=== PATIENT | female | born 1945 | race African-American/Black ===

== ENCOUNTER 2017-05-13 14:56 | Outpatient (CLI) | payer MEDICARE, BC ==
[2017-05-13 18:54] LABS: ALT (SGPT) 18 U/L (8-55); AST (SGOT) 22 U/L (5-34); Albumin 3.5 g/dL (3.4-4.8); Alkaline Phosphatase 69 U/L (40-150); Anion Gap 20 mmol/L (10-20); BUN (Urea Nitrogen) 39 mg/dL (9.8-20.1); Bilirubin, Total 0.6 mg/dL (0.2-1.2); Calc. Creatinine Clearance 0 mL/min (70-130); Calcium 9.5 mg/dL (7.8-10.44); Carbon Dioxide 29 mmol/L (23-31); Chloride 98 mmol/L (98-107); Cholesterol 151 mg/dl (< 200 Desired); Estimated GFR-MDRD 27; Globulin 4.2 g/dL (2.4-3.5); Glucose 199 mg/dL (80-115); HDL Cholesterol 30 mg/dL (>60 Neg Risk); LDL Cholesterol, Calculated 86 mg/dL; Potassium 3.7 mmol/L (3.5-5.1); Protein, Total 7.7 g/dL (6.0-8.3); Sodium 143 mmol/L (136-145); Triglycerides 175 mg/dL (Less than 150)
[2017-05-13 20:02] LABS: #Basophils 0.1 thou/uL (0.0-0.2); #Eosinphils 0.1 thou/uL (0.0-0.7); #Lymphocytes 1.4 thou/uL (1.20-3.40); #Monocytes 0.4 thou/uL (0.11-0.59); #Neutrophils 4.4 thou/uL (1.40-6.50); %Eosinophils 1.7 % (0.0-10.0); %Lymphocytes 22.1 % (21.0-51.0); %Monocytes 6.4 % (0.0-10.0); %Neutrophils 68.8 % (42.0-75.0); Hemoglobin 10.2 g/dL (12.0-16.0); Mean Corpuscular HGB CONC 30.7 g/dL (32.0-36.0); Mean Corpuscular Hemoglobin 28.6 pg (27.0-31.0); Mean Corpuscular Volume 93.3 fl (81.0-99.0); Mean Platelet Volume 5.5 fL (7.4-10.4); Platelet Count 314 thou/uL (130-400); Red Blood Cell (RBC) Count 3.55 mill/uL (4.20-5.40); White Blood Cell (WBC) Count 6.3 thou/uL (4.8-10.8)
== END 2017-05-13 14:57 | disposition home or self-care (01) ==
LOC: NAVSJIPCSP 14:56 → NAV LAB 14:57
PROVIDERS: ATTEND Internal Medicine
DX: I12.9 Hypertensive chronic kidney disease with stage 1 through stage 4 chronic kidney disease, or unspecified chronic kidney disease (principal); N18.3 Chronic kidney disease, stage 3 (moderate); E78.5 Hyperlipidemia, unspecified; Z79.899 Other long term (current) drug therapy
CPT/HCPCS: 80053; 80061; 85025

== ENCOUNTER 2017-05-29 17:46 | Inpatient (IN) | payer MEDICARE, BC ==
[2017-05-29] MEDS ORDERED: Famotidine 20 MG TAB PO PRN (19:40)
[2017-05-29] MEDS ORDERED: Ondansetron ODT 4 MG TAB PO PRN (19:42)
[2017-05-29] MEDS ORDERED: Milk Of Magnesia 30 ML UDCUP PO PRN (19:42)
[2017-05-29] MEDS ORDERED: Loperamide HCl 2 MG CAP PO PRN (19:42)
[2017-05-29] MEDS ORDERED: Calcium Carbonate 500 MG ChewTAB PO PRN (19:42)
[2017-05-29] MEDS ORDERED: cefTRIAXone\\ROCEPHIN 2 GM VIAL IVPB SCH (19:45)
[2017-05-29] MEDS: Labetalol HCl 100 MG TAB PO SCH (21:36)
[2017-05-29] MEDS: Docusate 100 MG CAP PO SCH (21:36)
[2017-05-29] MEDS: cloNIDine 0.2 MG TAB PO SCH (21:37)
[2017-05-29] MEDS: Gabapentin 100 MG CAP PO SCH (21:37)
[2017-05-29] MEDS: hydrALAZINE 25 MG TAB PO SCH (21:38)
[2017-05-29] MEDS: Furosemide 40 MG TAB PO SCH (21:38)
[2017-05-30] MEDS: Acetaminophen 325 MG TAB PO PRN ×2 (00:17→09:03)
[2017-05-30] MEDS: Diazepam 5 MG TAB PO SCH ×5 (00:18→23:35)
--- NOTE | 2017-05-30 00:42 | HP ---
DATE OF ADMISSION: 05/29/2017 HISTORY OF PRESENT ILLNESS: Ms. Zuñiga is a 71-year-old black female that developed worsening hung k pain over the past 3-4 weeks. The patient had an MRI, which showed lumbosacral area consistent wi th infection. She was taken to the surgical suite by Dr. Woodson, and had that area debrided, but no obvious purulence was noted. She also had a laminectomy in decompressive surgery. She eventual ly was started on some IV antibiotics and felt that she needed 6 weeks of IV antibiotics per Dr. Harish rojas' recommendation. She eventually was stabilized and transferred to [facility] in [place], [place] for continued physical therapy, occupational therapy and IV antibiotics. She was tr ansferred here today. PAST MEDICAL HISTORY: Reveals the patient has the followin. Hypertension. 2. Osteoarthritis. 3. Rotator cuff disease. 4. Prior history of cervical cancer in remission after chemotherapy and radiation. 5. Obesity. PAST SURGICAL HISTORY: 1. Bilateral hip replacements. 2. Removal of uterine fibroids. 3. Tonsillectomy. 4. Bilateral cataracts. 5. Laminectomy decompressive surgery by Dr. Woodson. SOCIAL HISTORY: Reveals the patient smoked for approximately unknown time. The patient is , she has one daughter. The patient does not drink, does not use any alcohol or recreational drugs. 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 ALLERGIES: Reveals the patient is allergic to MORPHINE and PENICILLIN, gives rashes. PRESENT MEDICATIONS: Reveal the patient is presently on the followin. [place] 10 p.r.n. pain. 2. Tums p.r.n. heartburn and indigestion. 3. Ceftriaxone 2 grams q.24 hours. 4. Vancomycin 750 mg q.24 hours. 5. Clonidine 0.2 mg at bedtime. 6. Valium 5 mg q.6 hours p.r.n. 7. Colace 100 mg b.i.d. 8. Pepcid 20 mg p.r.n. 9. Lasix 40 mg at bedtime. 10. Neurontin 300 mg t.i.d. 11. Apresoline 50 mg t.i.d. 12. Theragran-M daily. 13. Labetalol 300 mg b.i.d. 14. Imodium p.r.n. 15. Milk of Magnesia p.r.n. 16. Zofran p.r.n. 17. Vitamin D, folic acid, B12 one each day. FAMILY HISTORY: Unremarkable and noncontributory. REVIEW OF SYSTEMS: Reveal the patient denies any present fever or chills. She does complain of hung k pain. She denies any ear, nose or throat problems. She denies any chest pain or palpitations, sk ipping, rapid or slow heartbeat. She denies any cough, cold, congestion or respiratory problems at this time. Denies any nausea, vomiting, diarrhea or constipation. She denies any problems and s tated she has significant back pain, which is better and pain in her right leg is mainly coming from her back. PHYSICAL EXAMINATION: GENERAL: This is a well-developed, somewhat obese black female, in no apparent distress at this suzie e. HEENT: Reveals normocephalic, nontraumatic cranium. Pupils are equally round and reactive. Extrao cular movements are intact. Nose and throat are dry. The patient has multiple dental caries. NECK: Supple, without masses, nodes or bruits. No jugular venous distention is noted. LUNGS: Chest is clear to auscultation. No rales, rhonchi, wheezes or cough is noted. HEART: Reveals a regular rate and rhythm without murmurs, gallops or rubs. ABDOMEN: Obese, soft, nontender, without organomegaly. Normal bowel sounds are noted. No rebound or guarding is noted. Bowel sounds are heard in all 4 quadrants. : Deferred. EXTREMITIES: Reveal no clubbing, cyanosis or edema. NEUROLOGIC: The patient does have decreased movement in both her shoulders, which the patient state s that has been going on for long time. The patient's lumbar surgical spine sites are covered. The patient has trace edema. ASSESSMENT: 1. Osteomyelitis. The patient needs 6 weeks of ceftriaxone and vancomycin. 2. Hypertension. 3. Osteoarthritis. 4. Possible psoas muscle abscess. 5. Diskitis. PLAN: 1. Continue IV antibiotics for a total of 6 weeks, will follow up with weekly labs to Dr. Raines. 2. Continue to follow the patient's blood pressure closely. 3. Pain management. 4. Physical therapy and occupational therapy. 5. Deep venous thrombosis prophylaxis. 6. Stress ulcer prophylaxis. 7. Decubitus precautions.
[2017-05-30 05:48] LABS: ALT (SGPT) 23 U/L (8-55); AST (SGOT) 32 U/L (5-34); Albumin 2.3 g/dL (3.4-4.8); Alkaline Phosphatase 94 U/L (40-150); Anion Gap 13 mmol/L (10-20); BUN (Urea Nitrogen) 17 mg/dL (9.8-20.1); Bilirubin, Total 0.4 mg/dL (0.2-1.2); Calc. Creatinine Clearance 73 mL/min (70-130); Calcium 8.8 mg/dL (7.8-10.44); Carbon Dioxide 28 mmol/L (23-31); Chloride 102 mmol/L (98-107); Estimated GFR-MDRD 54; Globulin 3.9 g/dL (2.4-3.5); Glucose 104 mg/dL (80-115); Potassium 3.6 mmol/L (3.5-5.1); Protein, Total 6.2 g/dL (6.0-8.3); Sodium 139 mmol/L (136-145)
[2017-05-30 06:22] LABS: Anisocytosis SLIGHT = 6-15 cells (100X) (0-5/hpf); Band 23 % (5-11); Eosinophils 5 % (0-10); Hemoglobin 6.6 g/dL (12.0-16.0); Hypochromia MARKED = >30 cells (100X) (0-5/hpf); Lymphocytes 22 % (21-51); MDiff Complete? YES; Mean Corpuscular HGB CONC 31.2 g/dL (32.0-36.0); Mean Corpuscular Hemoglobin 28.1 pg (27.0-31.0); Mean Corpuscular Volume 90.1 fl (81.0-99.0); Mean Platelet Volume 4.9 fL (7.4-10.4); Metamyelocyte 1 % (0-0); Monocytes 1 % (0-10); Neutrophil 48 % (42-75); PLT Morphology Comment Appears Adequate; Platelet Count 439 thou/uL (130-400); Polychromasia SLIGHT = 2-3 cells (100X) (0-2/hpf); RBC Distribution Width 14.9 % (11.5-14.5); Red Blood Cell (RBC) Count 2.35 mill/uL (4.20-5.40); White Blood Cell (WBC) Count 10.6 thou/uL (4.8-10.8)
[2017-05-30] MEDS ORDERED: Sodium Chloride 0.9% 20 ML ONE ×2 (07:15→14:57)
[2017-05-30] MEDS: Vancomycin HCl 750 MG in Sodium Chloride 0.9% 250 ML 250 ML IVPB SCH ×3 (08:00→11:54)
[2017-05-30] MEDS: hydrALAZINE 25 MG TAB PO SCH ×3 (08:44→20:23)
[2017-05-30] MEDS: Multivitamin W/ Minerals 1 TAB PO SCH (08:44)
[2017-05-30] MEDS: Labetalol HCl 100 MG TAB PO SCH ×2 (08:45→20:23)
[2017-05-30] MEDS: Docusate 100 MG CAP PO SCH ×2 (08:45→20:24)
[2017-05-30] MEDS ORDERED: B2 PO SCH (09:00)
[2017-05-30] MEDS ORDERED: FLU VACC QS2017-18 36 mo. & older 0.5 ML SYRINGE IM ONE (09:00)
[2017-05-30] MEDS ORDERED: VIT D3 PO SCH (09:00)
[2017-05-30] MEDS ORDERED: FOLIC ACID PO SCH (09:00)
[2017-05-30] MEDS ORDERED: [Biotin] 10,000 MCG PO SCH (09:00)
[2017-05-30] MEDS ORDERED: B6 PO SCH (09:00)
[2017-05-30] MEDS ORDERED: B12 PO SCH (09:00)
[2017-05-30] MEDS: Gabapentin 100 MG CAP PO SCH ×3 (09:03→20:23)
[2017-05-30] MEDS: cefTRIAXone\\ROCEPHIN 2 GM in Sodium Chloride 0.9% 100 ML IVPB SCH (15:35)
--- NOTE | 2017-05-30 20:12 | PRG ---
DATE OF SERVICE: 05/30/2017 SUBJECTIVE: Ms. Zuñiga is a very pleasant 71-year-old black female who has had significant debili ty here recently. She developed back pain approximately 3-4 weeks ago and an MRI showed lumbosacral area consistent with diskitis infection. She was taken to the surgical suite by Dr. Woodson and had that area debrided. She also had a byrd inectomy along with decompressive surgery. She was eventually started on IV antibiotics and Dr. Harish rojas was asked to see the patient in consultation. She was eventually stabilized and transferred to [facility] on IV ceftriaxone 2 grams q.24 hours and vancomycin 750 mg IV q.24 hours. The patient states she is feeling little bit better today. She did not get out of bed, but she did do better exercise with physical therapy and occupational therapy. She states her pain is about the same, but maybe slightly better. She still has a very poor appetite and I told her she had to eat to get well. OBJECTIVE: VITAL SIGNS: Revealed blood pressure is 134/61, pulse 85-89, respirations 20, O2 saturation 97% on room air and T-max is 98.7. GENERAL: This is a well-developed, well-nourished, obese black female in no apparent distress at th is time. She states her pain medicine is working fairly well. HEENT: Reveals normocephalic and nontraumatic cranium. Pupils are equally round and reactive. Nos e and throat are somewhat dry. NECK: Supple, without masses, nodes or bruits. LUNGS: Chest is clear to auscultation. No rales, rhonchi or wheezes are heard. No cough is noted. HEART: Reveals a regular rate and rhythm without murmurs, gallops or rubs. ABDOMEN: Obese, soft and nontender, without organomegaly. Normal bowel sounds are noted. No rebou nd or guarding is noted. GENITOURINARY: Deferred. EXTREMITIES: Reveal no clubbing, cyanosis or edema. The patient does have decreased movement in onelia th her shoulders, which has been a long-term problem. Patient's lumbar spinal surgery sites are sti ll covered. Patient has trace edema. ASSESSMENT: 1. Osteomyelitis. Patient needs 6 weeks of ceftriaxone 2 grams q.24 hours and vancomycin 750 mg q. 24 hours. 2. Hypertension, which is stable. 3. Osteoarthritis, stable. 4. Diskitis. 5. Generalized weakness. 6. Pain. PLAN: 1. Continue IV antibiotics for a total of six weeks. 2. Weekly labs to be sent to Dr. Raines. 3. Continue to monitor the patient's blood pressure closely. 4. Continue pain management. 5. Physical therapy and occupational therapy. 6. Deep venous thrombosis prophylaxis. 7. Stress ulcer prophylaxis. 8. Decubitus precautions.
[2017-05-30] MEDS: Furosemide 40 MG TAB PO SCH (20:24)
[2017-05-30] MEDS: cloNIDine 0.2 MG TAB PO SCH (20:24)
[2017-05-31 05:42] LABS: #Basophils 0.1 thou/uL (0.0-0.2); #Eosinphils 0.3 thou/uL (0.0-0.7); #Lymphocytes 1.7 thou/uL (1.20-3.40); #Monocytes 0.6 thou/uL (0.11-0.59); #Neutrophils 6.3 thou/uL (1.40-6.50); %Basophils 1.5 % (0.0-1.0); %Lymphocytes 18.3 % (21.0-51.0); %Monocytes 6.6 % (0.0-10.0); %Neutrophils 70.6 % (42.0-75.0); Mean Corpuscular HGB CONC 30.6 g/dL (32.0-36.0); Mean Corpuscular Hemoglobin 28.1 pg (27.0-31.0); Mean Corpuscular Volume 91.8 fl (81.0-99.0); Mean Platelet Volume 4.9 fL (7.4-10.4); Platelet Count 431 thou/uL (130-400); RBC Distribution Width 15.2 % (11.5-14.5); Red Blood Cell (RBC) Count 2.14 mill/uL (4.20-5.40)
[2017-05-31] MEDS ORDERED: Sodium Chloride 0.9% 10 ML ONE ×2 (06:15→14:58)
[2017-05-31] MEDS: Diazepam 5 MG TAB PO SCH ×3 (06:27→17:11)
[2017-05-31 07:42] LABS: Vancomycin, Trough 21.1 ug/mL
[2017-05-31] MEDS: Vancomycin HCl 750 MG in Sodium Chloride 0.9% 250 ML 250 ML IVPB SCH ×2 (08:00→10:00)
[2017-05-31] MEDS: Docusate 100 MG CAP PO SCH ×2 (09:01→21:26)
[2017-05-31] MEDS: Labetalol HCl 100 MG TAB PO SCH ×2 (09:01→21:25)
[2017-05-31] MEDS: Multivitamin W/ Minerals 1 TAB PO SCH (09:01)
[2017-05-31] MEDS: Gabapentin 300 MG CAP PO SCH ×3 (09:02→21:26)
[2017-05-31] MEDS: hydrALAZINE 25 MG TAB PO SCH ×3 (09:02→21:26)
--- NOTE | 2017-05-31 09:16 | PRG ---
DATE OF SERVICE: 05/31/2017 DATE OF ADMISSION: 05/29/2017 HISTORY OF PRESENT ILLNESS: Ms. Zuñiga is a 71-year-old black female that about a month ago devel oped severe back pain. MRI revealed lumbosacral area consistent with diskitis and osteomyelitis. T he patient was taken to the surgical suite by Dr. Woodson had that area debrided. She also had a laminectomy with decompressive surgery. She eventually was started on IV antibiotics and followed b aleta Raines. She was stabilized and transferred to [facility] on IV ceftriaxone 2 g kierra q.24 hours and vancomycin 750 mg IV q.24 hours. The patient had blood count yesterday, which is low with hemoglobin of 6.6, hematocrit of 21.2. She was redrawn this morning and her hemoglobin has dropped more 6.0 and 19.7. The patient has absolut nuria no complaints of any bleeding, nausea, vomiting blood or lower GI bleeds. We did type and cross her for 2 units. We will give her that today. We will also order a vancomycin level before her ne xt vancomycin dose. She has not had a trough done yet. SUBJECTIVE: The patient has no complaints today. She states she is doing well and she actually has not had any rectal bleeding, nausea, vomiting. She states her appetite is very good, but typically it is not good since she has been ill. PHYSICAL EXAMINATION: GENERAL: This is a well-developed, well-nourished, very pleasant black female in no apparent distre ss. HEENT: Reveals normocephalic and nontraumatic cranium. Pupils are equally round and reactive. Ext raocular movements intact. Nose and throat are slightly dry, but clear. NECK: Supple, without masses, nodes or bruits. LUNGS: Chest is clear to auscultation. No rales, rhonchi, wheezes or cough is heard. HEART: Reveals a regular rate and rhythm without murmurs, gallops or rubs. ABDOMEN: Obese, soft, nontender, without organomegaly. Normal bowel sounds are noted. No rebound or guarding is noted. : Deferred. EXTREMITIES: Reveal no clubbing, cyanosis or edema. The patient does have bilateral shoulder pain, which is a long-term problem. Patient has trace edema. IMPRESSION: 1. Osteomyelitis. Patient gets 6 weeks of ceftriaxone 2 grams q.24 hours and vancomycin 750 q.24 h ours. 2. Hypertension, stable. 3. Osteoarthritis in the shoulders. 4. Diskitis. 5. Generalized weakness. 6. Pain. 7. Anemia, unknown etiology. PLAN: 1. Type and cross for 2 units. 2. Give one unit, then give Lasix 20 IV and then give second unit. 3. Repeat CBC in the morning. 4. Vancomycin trough before next dose. 5. Continue to monitor the patient's blood pressure closely. 6. Pain management. 7. Deep venous thrombosis prophylaxis. 8. Stress ulcer prophylaxis. 9. Decubitus precautions. 10. Continue physical therapy and occupational therapy.
[2017-05-31] MEDS ORDERED: Furosemide 20 MG/2 ML VIAL SLOW IVP SCH (10:00)
[2017-05-31] MEDS: HYDROcodone/Acetaminophen 10/325 mg Tablet PO PRN (10:08)
[2017-05-31] MEDS: Furosemide 40 MG TAB PO SCH (14:01)
[2017-05-31] MEDS: cefTRIAXone\\ROCEPHIN 2 GM in Sodium Chloride 0.9% 100 ML IVPB SCH (16:59)
[2017-05-31] MEDS: Acetaminophen 325 MG TAB PO PRN (17:11)
[2017-05-31] MEDS: cloNIDine 0.2 MG TAB PO SCH (21:26)
[2017-06-01] MEDS: Diazepam 5 MG TAB PO SCH ×4 (04:09→17:43)
[2017-06-01 07:15] LABS: Vancomycin, Trough 24.7 ug/mL
[2017-06-01 07:16] LABS: #Basophils 0.1 thou/uL (0.0-0.2); #Eosinphils 0.3 thou/uL (0.0-0.7); #Lymphocytes 1.4 thou/uL (1.20-3.40); #Monocytes 0.6 thou/uL (0.11-0.59); #Neutrophils 7.3 thou/uL (1.40-6.50); %Basophils 1.3 % (0.0-1.0); %Eosinophils 3.3 % (0.0-10.0); %Lymphocytes 14.5 % (21.0-51.0); %Monocytes 6.1 % (0.0-10.0); %Neutrophils 74.8 % (42.0-75.0); Hemoglobin 8.1 g/dL (12.0-16.0); Mean Corpuscular HGB CONC 31.1 g/dL (32.0-36.0); Mean Corpuscular Volume 90.1 fl (81.0-99.0); Mean Platelet Volume 4.9 fL (7.4-10.4); Platelet Count 390 thou/uL (130-400); RBC Distribution Width 15.6 % (11.5-14.5); Red Blood Cell (RBC) Count 2.89 mill/uL (4.20-5.40); White Blood Cell (WBC) Count 9.8 thou/uL (4.8-10.8)
[2017-06-01] MEDS: Vancomycin HCl 750 MG in Sodium Chloride 0.9% 250 ML 250 ML IVPB SCH ×2 (08:39)
[2017-06-01] MEDS: Gabapentin 300 MG CAP PO SCH ×3 (09:26→21:24)
[2017-06-01] MEDS: Docusate 100 MG CAP PO SCH ×2 (09:26→21:24)
[2017-06-01] MEDS: Multivitamin W/ Minerals 1 TAB PO SCH (09:26)
[2017-06-01] MEDS: Labetalol HCl 100 MG TAB PO SCH ×2 (09:32→21:23)
[2017-06-01] MEDS: hydrALAZINE 25 MG TAB PO SCH ×3 (09:33→21:24)
[2017-06-01] MEDS: Furosemide 40 MG TAB PO SCH (14:10)
--- NOTE | 2017-06-01 14:46 | PRG ---
DATE OF SERVICE: 06/01/2017 SUBJECTIVE: The patient feels well with no weakness, stable back pain. No paresthesias in her leg. Resting well with no shortness of breath, chest pain, fever or chills. OBJECTIVE: VITAL SIGNS: Shows blood pressure 172/75, pulse 92, temperature 98.5. LABORATORY DATA: Show a vancomycin trough level 24.7, therapeutic for [employer] SAND[employer] infections and osteomyeli tis. Hemoglobin is up to 8.1 after transfusion of 2 units of packed cells yesterday, hematocrit 26, white count 9800. ASSESSMENT: 1. Recurrent anemia improved with transfusion, still of unknown etiology and we will repeat CBC in the a.m. and to evaluate further in the future. 2. Osteomyelitis of lumbar spine and diskitis improving on vancomycin with decreased, but persisten t pain. 3. Hypertension, controlled to goal. PLAN: Repeat CBC in the a.m. Continue vancomycin 750 q.24 hours and Rocephin 2 gram q.24 hours as levels to go. I discussed with the patient the history of anemia and possible previous evaluation.
[2017-06-01] MEDS: cefTRIAXone\\ROCEPHIN 2 GM in Sodium Chloride 0.9% 100 ML IVPB SCH (16:40)
[2017-06-01] MEDS: cloNIDine 0.2 MG TAB PO SCH (21:23)
[2017-06-02] MEDS: Diazepam 5 MG TAB PO SCH ×2 (01:00→06:25)
[2017-06-02 05:55] LABS: #Basophils 0.1 thou/uL (0.0-0.2); #Eosinphils 0.3 thou/uL (0.0-0.7); #Lymphocytes 1.9 thou/uL (1.20-3.40); #Monocytes 0.6 thou/uL (0.11-0.59); #Neutrophils 6.8 thou/uL (1.40-6.50); %Basophils 1.4 % (0.0-1.0); %Lymphocytes 19.9 % (21.0-51.0); %Monocytes 6.5 % (0.0-10.0); %Neutrophils 69.2 % (42.0-75.0); Hemoglobin 8.1 g/dL (12.0-16.0); Mean Corpuscular HGB CONC 30.4 g/dL (32.0-36.0); Mean Corpuscular Hemoglobin 27.7 pg (27.0-31.0); Mean Corpuscular Volume 91.1 fl (81.0-99.0); Mean Platelet Volume 5.2 fL (7.4-10.4); Platelet Count 385 thou/uL (130-400); RBC Distribution Width 15.2 % (11.5-14.5); Red Blood Cell (RBC) Count 2.91 mill/uL (4.20-5.40); White Blood Cell (WBC) Count 9.8 thou/uL (4.8-10.8)
[2017-06-02 06:08] LABS: ALT (SGPT) 18 U/L (8-55); AST (SGOT) 17 U/L (5-34); Albumin 2.3 g/dL (3.4-4.8); Alkaline Phosphatase 82 U/L (40-150); Anion Gap 13 mmol/L (10-20); BUN (Urea Nitrogen) 16 mg/dL (9.8-20.1); Bilirubin, Total 0.3 mg/dL (0.2-1.2); Calc. Creatinine Clearance 71 mL/min (70-130); Calcium 8.7 mg/dL (7.8-10.44); Carbon Dioxide 27 mmol/L (23-31); Chloride 103 mmol/L (98-107); Estimated GFR-MDRD 53; Globulin 3.8 g/dL (2.4-3.5); Glucose 131 mg/dL (80-115); Potassium 3.8 mmol/L (3.5-5.1); Protein, Total 6.1 g/dL (6.0-8.3); Sodium 139 mmol/L (136-145)
[2017-06-02] MEDS: Vancomycin HCl 1 GM in Sodium Chloride 0.9% 250 ML 250 ML IVPB SCH (08:50)
[2017-06-02] MEDS: Labetalol HCl 100 MG TAB PO SCH ×2 (09:30→21:46)
[2017-06-02] MEDS: hydrALAZINE 25 MG TAB PO SCH ×3 (09:30→21:47)
[2017-06-02] MEDS: Multivitamin W/ Minerals 1 TAB PO SCH (09:30)
[2017-06-02] MEDS: Docusate 100 MG CAP PO SCH ×2 (09:30→21:47)
[2017-06-02] MEDS: Gabapentin 300 MG CAP PO SCH ×3 (09:30→21:45)
[2017-06-02] MEDS: Furosemide 40 MG TAB PO SCH (14:05)
[2017-06-02] MEDS: HYDROcodone/Acetaminophen 10/325 mg Tablet PO PRN (15:24)
[2017-06-02] MEDS: cefTRIAXone\\ROCEPHIN 2 GM in Sodium Chloride 0.9% 100 ML IVPB SCH (15:34)
--- NOTE | 2017-06-02 15:56 | PRG ---
MEDICAL PROGRESS NOTE DATE OF SERVICE: 06/02/2017 SUBJECTIVE: The patient lying in the bed, somewhat sleepy, states she has been given Valium routine ly for back spasms. At this time, only complains of pain in her right forearm since the surgery and she states she awakened with pain in her arm. OBJECTIVE: VITAL SIGNS: Blood pressure is up to 179/77, pulse is 80, O2 sats 92% on room air, respirations 22 and afebrile. LUNGS: Clear. CARDIAC: Showed regular rhythm. ABDOMEN: Soft and nontender. BACK: Shows tenderness to palpation. EXTREMITIES: Shows her right wrist is significantly tender, but not swollen, hot or red. LABORATORY DATA: Vancomycin trough yesterday returned at 24.7 on 1.5 grams IV daily and was decreas ed to 1 gram IV daily. Sodium is 139, potassium 3.8, chloride 103, bicarbonate 27, BUN 16, creatini ne 1.22, glucose 131, calcium 8.7, total bilirubin 0.3, AST 17, ALT 18 and alkaline phosphatase 82. White count stable at 9800, hemoglobin stable at 8.1 and hematocrit 26. Significant hypochromia on smear. ASSESSMENT: 1. Persistent osteomyelitis of lumbar spine with diskitis on vancomycin 1 gram q.24 hours and Rocep hin 2 grams q.24 hours. Apparently, she was on 1.5, and this has been decreased to 1 gram today. C BC is normal. Sed rate is still significantly elevated. 2. Some lethargy secondary to Valium being given routinely around the clock for spasms and we will change it to p.r.n. 3. Hypertension, borderline elevation and we will monitor closely, may need to increase medication. 4. Recurrent anemia, stable after transfusion of 2 units with persistent macrocytic indices and hyp ochromia, but with negative stool guaiac and appears to be postop anemia. PLAN: Repeat CBC in the a.m. B12 and folate. Continue stool guaiac, decrease vancomycin to 1 gram q.24 hours and have pharmacy titrate dose.
[2017-06-02] MEDS: cloNIDine 0.2 MG TAB PO SCH (21:45)
[2017-06-02] MEDS: Diazepam 5 MG TAB PO PRN (23:38)
[2017-06-03] MEDS: Vancomycin HCl 1 GM in Sodium Chloride 0.9% 250 ML 250 ML IVPB SCH (08:32)
[2017-06-03] MEDS: HYDROcodone/Acetaminophen 10/325 mg Tablet PO PRN ×2 (08:50→21:13)
[2017-06-03] MEDS: Labetalol HCl 100 MG TAB PO SCH ×2 (08:50→21:14)
[2017-06-03] MEDS: Gabapentin 300 MG CAP PO SCH ×3 (08:51→21:15)
[2017-06-03] MEDS: Multivitamin W/ Minerals 1 TAB PO SCH (08:51)
[2017-06-03] MEDS: Docusate 100 MG CAP PO SCH ×2 (08:52→21:15)
[2017-06-03] MEDS: hydrALAZINE 25 MG TAB PO SCH ×3 (08:52→21:15)
--- NOTE | 2017-06-03 11:06 | PRG ---
DATE OF SERVICE: 06/03/2017 HISTORY OF PRESENT ILLNESS: Ms. Zuñiga is a very pleasant 71-year-old black female with severe ba ck pain. MRI revealed osteomyelitis of the lumbosacral area and diskitis. The patient was taken pierre rgically by Dr. Woodson and that area was debrided. She also had laminectomy decompressive surger y. She was started on IV antibiotics and was followed by Dr. Raines. She was transferred here on ce ftriaxone and vancomycin. SUBJECTIVE: The patient states she is doing very well today. She states she is feeling better. Sh neyda had a really good weekend. Her appetite is better. VITAL SIGNS: Blood pressure elevated this morning 177/76, pulse 82 to 89, respirations 20, O2 sat 9 5% on 3 liters, temperature max 98.6. LABORATORY: Laboratories yesterday revealed a white count of 9000, hemoglobin 8.1, hematocrit 26.5, platelet count of 385,000. Sodium 139, potassium 3.8, chloride 103, carbon dioxide 27 with a BUN 1 6, creatinine 1.22. Fasting sugar was 131. PHYSICAL EXAMINATION: GENERAL: This is a well-developed, well-nourished, very pleasant white female in no apparent distre ss at this time. HEENT: Reveals normocephalic, nontraumatic cranium. Pupils equal, round, and reactive. Extraocula r movements are intact. Nose and throat are slightly dry, but clear. NECK: Supple, without mass, nodes or bruits. LUNGS: Chest is clear to auscultation. No rales, rhonchi, wheezes or cough is heard. CARDIOVASCULAR: Reveals a regular rate and rhythm without murmurs, gallops or rubs. ABDOMEN: Obese, soft, nontender, without organomegaly. Normal bowel sounds are noted. No rebound or guarding is noted. GENITOURINARY: Deferred. EXTREMITIES: Reveal no clubbing, cyanosis or edema. The patient continues to have bilateral should er pain. This has been on long-term problem. The patient's spinal surgery is still covered. The p atient has only trace edema. IMPRESSION: 1. Osteomyelitis, needs a full 6 weeks of ceftriaxone and vancomycin. 2. Hypertension, stable. 3. Osteoarthritis, stable. 4. Diskitis stable. 5. Generalized weakness, stable. Pain control is much improved. PLAN: 1. Continue IV antibiotics for a total of 6 weeks. 2. Weekly labs sent to Dr. Raines. 3. Continue to monitor the patient's blood pressure closely. 4. Continue PT and OT. 5. Continue deep venous thrombosis prophylaxis. 6. Continue stress ulcer prophylaxis. 7. Decubitus precautions. 8. Continue physical therapy and occupational therapy.
[2017-06-03] MEDS: Furosemide 40 MG TAB PO SCH (14:30)
[2017-06-03] MEDS: cefTRIAXone\\ROCEPHIN 2 GM in Sodium Chloride 0.9% 100 ML IVPB SCH (15:44)
[2017-06-03 19:50] LABS: Vitamin B12 Greater than 2000 pg/mL (211-911)
[2017-06-03] MEDS: cloNIDine 0.2 MG TAB PO SCH (21:15)
[2017-06-04] MEDS ORDERED: methylPREDNISolone Acetate 40 mg/ml Vial ONE ×2 (06:23→06:24)
[2017-06-04] MEDS ORDERED: Lidocaine 1% 20 ML MDV ONE (06:25)
[2017-06-04 07:34] LABS: Vancomycin, Trough 19.8 ug/mL
[2017-06-04] MEDS: HYDROcodone/Acetaminophen 10/325 mg Tablet PO PRN ×3 (08:48→21:01)
[2017-06-04] MEDS: Labetalol HCl 100 MG TAB PO SCH ×2 (08:50→21:01)
[2017-06-04] MEDS: Multivitamin W/ Minerals 1 TAB PO SCH (08:51)
[2017-06-04] MEDS: hydrALAZINE 25 MG TAB PO SCH ×3 (08:52→21:03)
[2017-06-04] MEDS: Gabapentin 300 MG CAP PO SCH ×3 (08:52→21:01)
[2017-06-04] MEDS: Vancomycin HCl 1 GM in Sodium Chloride 0.9% 250 ML 250 ML IVPB SCH (08:52)
[2017-06-04] MEDS: Docusate 100 MG CAP PO SCH ×2 (08:54→21:02)
--- NOTE | 2017-06-04 13:04 | PRG ---
DATE OF SERVICE: 06/04/2017 HISTORY OF PRESENT ILLNESS: Ms. Zuñiga is a 71-year-old very pleasant black female with severe ba ck pain. She was found to have an osteomyelitis of the lumbosacral area and diskitis. She has take n the surgical suite by Dr. Woodson and had that area debrided. She was eventually transferred to [facility] for IV antibiotics. She has been followed by Dr. Raines. Presently on c eftriaxone and vancomycin. SUBJECTIVE: The patient has no complaints today. She states she stood up this morning and did some therapy. She is looking forward to getting a little more therapy. She has no complaints, states s he is eating well. She is a retired nurse. VITAL SIGNS: Blood pressure this morning was elevated at 175/79, pulse 79-94, respirations 16, O2 s at 95%, T-max 97.5. LABORATORY: Reveals vancomycin trough this morning was 19.8. PHYSICAL EXAMINATION: GENERAL: This is a well-developed, well-nourished, very pleasant black female in no apparent distre ss at this time. HEENT: Reveals normocephalic, nontraumatic cranium. Pupils are equally round and reactive. Extrao cular movements intact. Nose and throat are slightly dry. NECK: Supple, without masses, nodes or bruits. LUNGS: Chest clear to auscultation. No rales, rhonchi or wheezes are heard. No cough is noted. HEART: Reveals a regular rate and rhythm without murmurs, gallops or rubs. ABDOMEN: Obese, soft, nontender. No organomegaly is noted. Normal bowel sounds in 4 quadrants, is noted. No rebound or guarding is noted. : Deferred. EXTREMITIES: Reveal no clubbing, cyanosis or edema. The patient does have bilateral shoulder pain which is a long-term problem. The patient's spinal surgery still covered, no significant edema is n oted. IMPRESSION: 1. Diskitis with osteomyelitis for a full 10 weeks of ceftriaxone and vancomycin. 2. Hypertension, stable except it is high today. 3. Osteoarthritis. 4. Diskitis. 5. Generalized weakness. 6. Pain control. PLAN: 1. Continue IV antibiotics for a total of 6 weeks. 2. Weekly labs sent to Dr. Raines. 3. Continue to monitor blood pressure closely. 4. Continue PT and OT. 5. Continue deep venous thrombosis prophylaxis. 6. Continue stress ulcer prophylaxis. 7. Continue decubitus precautions.
[2017-06-04] MEDS: Furosemide 40 MG TAB PO SCH (14:00)
[2017-06-04] MEDS: cefTRIAXone\\ROCEPHIN 2 GM in Sodium Chloride 0.9% 100 ML IVPB SCH (15:35)
[2017-06-04] MEDS: cloNIDine 0.2 MG TAB PO SCH (21:03)
[2017-06-05 05:44] LABS: #Basophils 0.1 thou/uL (0.0-0.2); #Eosinphils 0.2 thou/uL (0.0-0.7); #Lymphocytes 1.6 thou/uL (1.20-3.40); #Monocytes 0.5 thou/uL (0.11-0.59); #Neutrophils 5.9 thou/uL (1.40-6.50); %Basophils 0.8 % (0.0-1.0); %Eosinophils 2.8 % (0.0-10.0); %Lymphocytes 19.6 % (21.0-51.0); %Monocytes 5.5 % (0.0-10.0); %Neutrophils 71.2 % (42.0-75.0); Hemoglobin 8.6 g/dL (12.0-16.0); Mean Corpuscular HGB CONC 32.4 g/dL (32.0-36.0); Mean Corpuscular Hemoglobin 31.2 pg (27.0-31.0); Mean Corpuscular Volume 96.3 fl (81.0-99.0); Mean Platelet Volume 5.2 fL (7.4-10.4); Platelet Count 366 thou/uL (130-400); RBC Distribution Width 15.3 % (11.5-14.5); Red Blood Cell (RBC) Count 2.74 mill/uL (4.20-5.40); White Blood Cell (WBC) Count 8.3 thou/uL (4.8-10.8)
[2017-06-05 05:56] LABS: ALT (SGPT) 16 U/L (8-55); AST (SGOT) 14 U/L (5-34); Albumin 2.4 g/dL (3.4-4.8); Alkaline Phosphatase 87 U/L (40-150); Anion Gap 13 mmol/L (10-20); BUN (Urea Nitrogen) 18 mg/dL (9.8-20.1); Bilirubin, Total 0.2 mg/dL (0.2-1.2); CRP (Inflammatory) 8.65 mg/dL (= or < 0.5); Calc. Creatinine Clearance 62 mL/min (70-130); Calcium 8.7 mg/dL (7.8-10.44); Carbon Dioxide 27 mmol/L (23-31); Chloride 102 mmol/L (98-107); Estimated GFR-MDRD 45; Globulin 3.7 g/dL (2.4-3.5); Glucose 136 mg/dL (80-115); Potassium 3.7 mmol/L (3.5-5.1); Protein, Total 6.1 g/dL (6.0-8.3); Sodium 138 mmol/L (136-145)
[2017-06-05] MEDS: Vancomycin HCl 1 GM in Sodium Chloride 0.9% 250 ML 250 ML IVPB SCH (08:33)
[2017-06-05] MEDS: Gabapentin 300 MG CAP PO SCH ×3 (08:34→20:31)
[2017-06-05] MEDS: Multivitamin W/ Minerals 1 TAB PO SCH (08:35)
[2017-06-05] MEDS: Labetalol HCl 100 MG TAB PO SCH ×2 (08:35→20:31)
[2017-06-05] MEDS: hydrALAZINE 25 MG TAB PO SCH ×3 (08:35→20:31)
[2017-06-05] MEDS: Docusate 100 MG CAP PO SCH ×2 (08:35→20:31)
[2017-06-05] MEDS: HYDROcodone/Acetaminophen 10/325 mg Tablet PO PRN ×3 (08:38→21:39)
--- NOTE | 2017-06-05 13:28 | PRG ---
DATE OF SERVICE: 06/05/2017 SUBJECTIVE: Ms. Zuñiga is doing well. Denies any complaints, resting comfortably, tolerating her medications. OBJECTIVE: VITAL SIGNS: She is afebrile, heart rate is 80, respirations are 22, blood pressure 188/80. CARDIOVASCULAR: S1, S2 plus. RESPIRATORY: Normal vesicular breath sounds. ABDOMEN: Soft, nontender, obese. Bowel sounds heard in all quadrants. EXTREMITIES: Without cyanosis or clubbing. LABORATORY VALUES: White count is 8.3, H\T\H is 8.6 and 26.4. Sed rate is 105. Sodium 138, potass ium 3.7, BUN and creatinine is 18 and 1.4. CRP is down to 8.65. IMPRESSION: 1. Diskitis requiring long-term IV antibiotics. 2. Blood pressure is still not well controlled. 3. Morbid obesity. 4. Degenerative joint disease. PLAN: 1. Increase hydralazine 100 mg t.i.d. 2. Continue current medications. 3. DVT and stress ulcer prophylaxis. 4. Decubitus precautions. 5. Weekly CBC, CRP, and sed rate. 6. Monitor creatinine for any worsening of renal function. Discussed with the patient in detail, all questions answered.
[2017-06-05] MEDS: Furosemide 40 MG TAB PO SCH (14:14)
[2017-06-05] MEDS: cefTRIAXone\\ROCEPHIN 2 GM in Sodium Chloride 0.9% 100 ML IVPB SCH (15:14)
[2017-06-05] MEDS: cloNIDine 0.2 MG TAB PO SCH (20:30)
[2017-06-06] MEDS: Labetalol HCl 100 MG TAB PO SCH ×2 (08:33→21:04)
[2017-06-06] MEDS: Vancomycin HCl 1 GM in Sodium Chloride 0.9% 250 ML 250 ML IVPB SCH (08:33)
[2017-06-06] MEDS: Multivitamin W/ Minerals 1 TAB PO SCH (08:33)
[2017-06-06] MEDS: HYDROcodone/Acetaminophen 10/325 mg Tablet PO PRN ×2 (08:34→21:01)
[2017-06-06] MEDS: hydrALAZINE 25 MG TAB PO SCH ×3 (08:34→21:03)
[2017-06-06] MEDS: Docusate 100 MG CAP PO SCH ×2 (08:34→21:04)
[2017-06-06] MEDS: Gabapentin 300 MG CAP PO SCH ×3 (08:35→21:03)
--- NOTE | 2017-06-06 13:11 | PRG ---
DATE OF SERVICE: 06/06/2017 SUBJECTIVE: Ms. Zuñiga is doing well. Denies any complaints, tolerating her antibiotics and her therapy. Her blood pressure continues to remain high. Her hydralazine was increased yesterday. plan is to increase her clonidine from 0.2 mg at night to 0.2 mg b.i.d. OBJECTIVE: VITAL SIGNS: She is afebrile, heart rate 93, respirations 20, oxygen saturation 98% and blood press ure 200/81 this morning. CARDIOVASCULAR: S1, S2 plus. RESPIRATORY SYSTEM: Normal vesicular breath sounds. ABDOMEN: Soft, obese, nontender, bowel sounds heard in all quadrants. EXTREMITIES: Without cyanosis or clubbing. Peripheral pulses are palpable. IMPRESSION: 1. Diskitis, requiring long-term intravenous antibiotics. 2. Hypertension, not controlled. 3. Obesity. 4. Chronic low back pain. 5. Peripheral neuropathy. PLAN: 1. Continue IV antibiotics. 2. Nutritional support. 3. Deep venous thrombosis prophylaxis. 4. Decubitus precautions. 5. Stress ulcer prophylaxis. 6. Increase clonidine to 0.2 mg b.i.d. 7. Continue to monitor blood pressure. 8. I discussed with the patient and family in detail and all questions answered.
[2017-06-06] MEDS: Furosemide 40 MG TAB PO SCH (14:04)
[2017-06-06] MEDS: cloNIDine 0.2 MG TAB PO SCH ×2 (15:03→21:04)
[2017-06-06] MEDS: cefTRIAXone\\ROCEPHIN 2 GM in Sodium Chloride 0.9% 100 ML IVPB SCH (15:09)
[2017-06-07] MEDS: Vancomycin HCl 1 GM in Sodium Chloride 0.9% 250 ML 250 ML IVPB SCH (09:01)
[2017-06-07] MEDS: HYDROcodone/Acetaminophen 10/325 mg Tablet PO PRN ×2 (09:07→21:36)
[2017-06-07] MEDS: cloNIDine 0.2 MG TAB PO SCH ×4 (09:09→21:39)
[2017-06-07] MEDS: hydrALAZINE 25 MG TAB PO SCH ×3 (09:09→21:37)
[2017-06-07] MEDS: Multivitamin W/ Minerals 1 TAB PO SCH (09:09)
[2017-06-07] MEDS: Labetalol HCl 100 MG TAB PO SCH ×2 (09:09→21:38)
--- NOTE | 2017-06-07 09:09 | PRG ---
DATE OF SERVICE: 06/07/2017 SUBJECTIVE: Ms. Zuñiga is doing well. Denies any complaints, resting comfortably. Blood pressur e is improving with the adjustment of her medications, it still not at goal. Ms. Zuñiga is doing well otherwise. Denies any concerns. Discussed with therapy and she apparently is having some sign ificant weakness in her right arm since her surgery. They recommended nursing get her up in a chair , even on the weekends. They stated that she walked about 20 feet yesterday and is definitely impro ving from the therapy standpoint as well. OBJECTIVE: VITAL SIGNS: She is afebrile, heart rate 83, respirations 20, oxygen saturation 97%, blood pressure 185/81. It was 158/69 last night. CARDIOVASCULAR: S1, S2 plus. RESPIRATORY: Normal vesicular breath sounds. ABDOMEN: Soft, obese, nontender, bowel sounds heard in all quadrants. EXTREMITIES: Without cyanosis or clubbing. Trace edema. CENTRAL NERVOUS SYSTEM: Grossly nonfocal except for right upper extremity weakness which I am not s ure if it is related to the shoulder or if it is a neurological issue. She states that this has bee n going on for a while and has not improved from the surgery. We will try to review her old records , she is relatively new to me. IMPRESSION: 1. Diskitis requiring IV antibiotics. 2. Hypertension, improving control, but still not at goal. 3. Chronic pain. 4. Degenerative joint disease. 5. Rotator cuff tendinitis. 6. Right upper extremity weakness, probably related to the shoulder. PLAN: 1. Continue current medications. 2. Nutritional support. 3. Continue IV antibiotics. 4. Deep venous thrombosis prophylaxis. 5. Decubitus precautions. 6. Stress ulcer prophylaxis. 7. Adjust blood pressure medications. 8. Discussed with patient in detail and all questions answered.
[2017-06-07] MEDS: Gabapentin 300 MG CAP PO SCH ×3 (09:10→21:37)
[2017-06-07] MEDS: Docusate 100 MG CAP PO SCH ×3 (09:10→21:36)
[2017-06-07] MEDS: Furosemide 40 MG TAB PO SCH (14:06)
[2017-06-07] MEDS: cefTRIAXone\\ROCEPHIN 2 GM in Sodium Chloride 0.9% 100 ML IVPB SCH (15:10)
[2017-06-07] MEDS: Diazepam 5 MG TAB PO PRN (21:43)
[2017-06-07] MEDS: Enoxaparin Sodium 40 MG/0.4 ML SYRINGE SC SCH ×2 (21:43→21:50)
[2017-06-08 05:28] LABS: Band 2 % (5-11); Hemoglobin 8.4 g/dL (12.0-16.0); Lymphocytes 17 % (21-51); MDiff Complete? YES; Mean Corpuscular HGB CONC 30.2 g/dL (32.0-36.0); Mean Corpuscular Hemoglobin 28.7 pg (27.0-31.0); Mean Corpuscular Volume 95.2 fl (81.0-99.0); Mean Platelet Volume 5.2 fL (7.4-10.4); Monocytes 5 % (0-10); Neutrophil 76 % (42-75); PLT Morphology Comment Appears Adequate; Platelet Count 368 thou/uL (130-400); RBC Morphology Normal; Red Blood Cell (RBC) Count 2.92 mill/uL (4.20-5.40); White Blood Cell (WBC) Count 7.2 thou/uL (4.8-10.8)
[2017-06-08 05:37] LABS: ALT (SGPT) 14 U/L (8-55); AST (SGOT) 13 U/L (5-34); Albumin 2.4 g/dL (3.4-4.8); Alkaline Phosphatase 85 U/L (40-150); Anion Gap 12 mmol/L (10-20); BUN (Urea Nitrogen) 19 mg/dL (9.8-20.1); Bilirubin, Total 0.2 mg/dL (0.2-1.2); Calc. Creatinine Clearance 71 mL/min (70-130); Calcium 8.8 mg/dL (7.8-10.44); Carbon Dioxide 31 mmol/L (23-31); Chloride 100 mmol/L (98-107); Estimated GFR-MDRD 52; Globulin 3.5 g/dL (2.4-3.5); Glucose 145 mg/dL (80-115); Potassium 3.6 mmol/L (3.5-5.1); Protein, Total 5.9 g/dL (6.0-8.3); Sodium 139 mmol/L (136-145)
[2017-06-08] MEDS: Vancomycin HCl 1 GM in Sodium Chloride 0.9% 250 ML 250 ML IVPB SCH (09:13)
[2017-06-08] MEDS: cloNIDine 0.2 MG TAB PO SCH ×3 (09:13→20:48)
[2017-06-08] MEDS: hydrALAZINE 25 MG TAB PO SCH ×3 (09:14→20:50)
[2017-06-08] MEDS: Labetalol HCl 100 MG TAB PO SCH ×2 (09:14→20:49)
[2017-06-08] MEDS: Gabapentin 300 MG CAP PO SCH ×3 (09:14→20:48)
[2017-06-08] MEDS: Docusate 100 MG CAP PO SCH ×2 (09:14→20:51)
[2017-06-08] MEDS: Multivitamin W/ Minerals 1 TAB PO SCH (09:15)
--- NOTE | 2017-06-08 12:36 | PRG ---
DATE OF SERVICE: 06/08/2017 HISTORY OF PRESENT ILLNESS: Ms. Zuñiga is a very pleasant 71-year-old black female with severe ba ck pain. She was found to have a lumbosacral discitis, thought to have possibly an abscess and was taken to the surgical suite by Dr. Woodson. That area was debrided and she was eventually transfe rred to [facility] for continued IV antibiotics and therapy. Dr. Raines was following the patient. SUBJECTIVE: The patient states she is doing well today. She is continuing to work hard with therap y and walked a 20+ feet. She states she is tired, but we are going to encourage her to get out of b ed and stay out of bed as much we can this weekend. VITAL SIGNS: Blood pressure is still slightly elevated 165/71, pulse 72-90, respirations 19-20, O2 saturation 98%. T-max 98.2. LABORATORY DATA: Reveals white count 7200, hemoglobin 8.4, hematocrit 27.8, and platelet count is 3 68,000. Sodium is 139, potassium 3.6, chloride 100, carbon dioxide 31 with a BUN of 19, creatinine 1.23 and a sugar 145. PHYSICAL EXAMINATION: GENERAL: This is a well-developed, well-nourished, slightly obese black female in no apparent distr ess at this time. HEENT: Reveals normocephalic, nontraumatic cranium. Pupils are equally round and reactive. Extrao cular movements intact. Nose and throat are slightly dry. NECK: Supple without masses, nodes or bruits. CHEST: Clear to auscultation, no rales, rhonchi or wheezes are heard. CARDIOVASCULAR: Reveals a regular rate and rhythm without murmurs, gallops or rubs. ABDOMEN: Soft, nontender without organomegaly. Slightly obese. Normal bowel sounds are noted in a ll 4 quadrants. GENITOURINARY: Deferred. EXTREMITIES: Reveal no clubbing, cyanosis and continues to have some trace edema. The patient also complains of bilateral shoulder pain, which is a long ongoing problem. IMPRESSION: 1. Diskitis. 2. Hypertension. 3. Degenerative joint disease. 4. Rotator cuff tendonitis. 5. Right upper extremity weakness. 6. Chronic pain. PLAN: 1. Continue IV antibiotics for a total of 6 weeks. 2. Weekly labs sent to Dr. Raines. 3. Continue to monitor the patient's blood pressure closely. 4. Continue physical therapy and occupational therapy. 5. Continue DVT prophylaxis. 6. Continued stress ulcer prophylaxis. 7. Continued decubitus precautions. 8. Continue pain control.
[2017-06-08] MEDS: Furosemide 40 MG TAB PO SCH (14:21)
[2017-06-08] MEDS: cefTRIAXone\\ROCEPHIN 2 GM in Sodium Chloride 0.9% 100 ML IVPB SCH (15:41)
[2017-06-08] MEDS: Diazepam 5 MG TAB PO PRN (20:48)
[2017-06-08] MEDS: Enoxaparin Sodium 40 MG/0.4 ML SYRINGE SC SCH (20:51)
[2017-06-09 07:19] LABS: Vancomycin, Trough 17.8 ug/mL
[2017-06-09] MEDS: Vancomycin HCl 1 GM in Sodium Chloride 0.9% 250 ML 250 ML IVPB SCH (08:22)
[2017-06-09] MEDS: cloNIDine 0.2 MG TAB PO SCH ×3 (08:23→20:56)
[2017-06-09] MEDS: Gabapentin 300 MG CAP PO SCH ×3 (08:24→20:55)
[2017-06-09] MEDS: hydrALAZINE 25 MG TAB PO SCH ×3 (08:24→20:54)
[2017-06-09] MEDS: Labetalol HCl 100 MG TAB PO SCH ×2 (08:24→20:55)
[2017-06-09] MEDS: Docusate 100 MG CAP PO SCH ×2 (08:24→20:57)
[2017-06-09] MEDS: Multivitamin W/ Minerals 1 TAB PO SCH (08:25)
--- NOTE | 2017-06-09 08:49 | PRG ---
DATE OF SERVICE: 06/09/2017 DATE OF ADMISSION: 05/29/2017 HISTORY OF PRESENT ILLNESS: Ms. Zuñiga is a very pleasant 71-year-old black female with severe ba ck pain. She was found to have lumbosacral diskitis and was taken to the surgical suite for debride ment by Dr. Woodson. She eventually was stabilized and transferred to [facility] for continued IV antibiotics and physical therapy. The patient is being followed by Dr. Raines and we are supposed to be sending him labs monthly. SUBJECTIVE: The patient states she is doing very well today. She had a good day yesterday but she has been mostly in bed. She did not get out much. She is encouraged today, Saturday and she has more time to rest, but she states she will get out of bed today. PHYSICAL EXAMINATION: VITAL SIGNS: Reveal blood pressure last night was 173/79, pending blood pressure this morning. Pul se 79-83, respirations 17, O2 saturation 99%, T-max 98. 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 HEENT: Reveals normocephalic and nontraumatic cranium. Pupils are equally round and reactive. Ext raocular movements intact. Nose and throat are still slightly dry. NECK: Supple, without masses, nodes or bruits. CHEST: Clear to auscultation. No rales, no rhonchi, no wheezes are heard. No cough is noted. HEART: Reveals a regular rate and rhythm. No murmurs, gallops or rubs are noted. ABDOMEN: Soft, obese, nontender, without organomegaly. Normal bowel sounds are noted in all 4 quad rants. No rebound or guarding is noted. : Exam is deferred. EXTREMITIES: Reveal no clubbing, cyanosis or edema. NEUROLOGIC: The patient has bilateral shoulder pain which is continuing to be an ongoing problem, o therwise stable. LABORATORY DATA: Vancomycin level this morning was 17.8. IMPRESSION: 1. Diskitis. 2. Hypertension. 3. Rotator cuff tendinitis. 4. Degenerative joint disease. 5. Right upper extremity weakness. 6. Chronic pain. 7. Generalized weakness. PLAN: 1. Continue IV antibiotics for a total of six weeks. 2. Dr. Raines. 3. Continue to monitor the patient's blood pressure closely. 4. Continue deep venous thrombosis prophylaxis. 5. Stress ulcer prophylaxis. 6. Decubitus precautions. 7. Pain management. 8. Physical therapy and occupational therapy.
[2017-06-09] MEDS: Furosemide 40 MG TAB PO SCH (14:17)
[2017-06-09] MEDS: cefTRIAXone\\ROCEPHIN 2 GM in Sodium Chloride 0.9% 100 ML IVPB SCH (15:59)
[2017-06-09] MEDS: HYDROcodone/Acetaminophen 10/325 mg Tablet PO PRN (20:56)
[2017-06-09] MEDS: Enoxaparin Sodium 40 MG/0.4 ML SYRINGE SC SCH (20:57)
[2017-06-10] MEDS: cloNIDine 0.2 MG TAB PO SCH ×3 (08:25→20:35)
[2017-06-10] MEDS: Labetalol HCl 100 MG TAB PO SCH ×2 (08:25→20:36)
[2017-06-10] MEDS: Gabapentin 300 MG CAP PO SCH ×3 (08:25→20:38)
[2017-06-10] MEDS: Docusate 100 MG CAP PO SCH ×2 (08:25→20:38)
[2017-06-10] MEDS: Multivitamin W/ Minerals 1 TAB PO SCH (08:25)
[2017-06-10] MEDS: Vancomycin HCl 1 GM in Sodium Chloride 0.9% 250 ML 250 ML IVPB SCH (08:25)
[2017-06-10] MEDS: HYDROcodone/Acetaminophen 10/325 mg Tablet PO PRN ×2 (08:26→20:38)
[2017-06-10] MEDS: hydrALAZINE 25 MG TAB PO SCH ×3 (09:46→20:34)
--- NOTE | 2017-06-10 13:31 | PRG ---
DATE OF SERVICE: 06/10/2017 SUBJECTIVE: Ms. Zuñiga is doing well. Denies any complaints. She states that it still hurts her legs if she sits in a wheelchair. She is tolerating therapy. OBJECTIVE: VITAL SIGNS: She is afebrile, heart rate is 76, respirations 18, blood pressure 188/81. CARDIOVASCULAR: S1, S2 plus. RESPIRATORY: Normal vesicular breath sounds. ABDOMEN: Soft, nontender, bowel sounds heard in all quadrants. EXTREMITIES: Without cyanosis or clubbing. Trace edema. LABORATORY VALUES: White count is 7.2, H\T\H is 8.4 and 27.8. Sodium 139, potassium 3.6, BUN and c reatinine 19 and 1.23. IMPRESSION: 1. Diskitis requiring long-term IV antibiotics. 2. Improving renal function. 3. Hypertension, still not well controlled. 4. Chronic back pain. 5. Degenerative joint disease. 6. Rotator cuff tendinitis. PLAN: 1. Continue current medications, but increase her clonidine to t.i.d. 2. Continue IV antibiotics. 3. Weekly CBC, CRP, sed rate. 4. Deep venous thrombosis prophylaxis. 5. Decubitus precautions. 6. Stress ulcer prophylaxis. 7. Patient states that Dr. Woodson wanted to see her, but she is not sure when. We will review h is notes and see when he wants to see her, most likely after she finishes her antibiotics. Discussed with the patient in detail and all questions answered.
[2017-06-10] MEDS: Furosemide 40 MG TAB PO SCH (13:47)
[2017-06-10] MEDS: cefTRIAXone\\ROCEPHIN 2 GM in Sodium Chloride 0.9% 100 ML IVPB SCH (15:33)
[2017-06-10] MEDS: Lisinopril 10 MG TAB PO SCH (20:35)
[2017-06-10] MEDS: Enoxaparin Sodium 40 MG/0.4 ML SYRINGE SC SCH (20:37)
[2017-06-11] MEDS: Vancomycin HCl 1 GM in Sodium Chloride 0.9% 250 ML 250 ML IVPB SCH (08:01)
[2017-06-11] MEDS: hydrALAZINE 25 MG TAB PO SCH ×3 (09:00→20:55)
[2017-06-11] MEDS: Labetalol HCl 100 MG TAB PO SCH ×2 (09:00→20:53)
[2017-06-11] MEDS: Lisinopril 10 MG TAB PO SCH ×2 (09:00→20:53)
[2017-06-11] MEDS: Gabapentin 300 MG CAP PO SCH ×3 (09:00→20:54)
[2017-06-11] MEDS: Multivitamin W/ Minerals 1 TAB PO SCH (09:00)
[2017-06-11] MEDS: Docusate 100 MG CAP PO SCH ×2 (09:00→20:55)
[2017-06-11] MEDS: HYDROcodone/Acetaminophen 10/325 mg Tablet PO PRN ×2 (09:01→20:54)
[2017-06-11] MEDS: cloNIDine 0.2 MG TAB PO SCH ×3 (09:01→20:53)
--- NOTE | 2017-06-11 13:38 | PRG ---
DATE OF SERVICE: 06/11/2017 SUBJECTIVE: Ms. Zuñiga is doing the same. She states that when she sits up, she is having signif icant pain in her legs, but no issues when she is lying down. She does have osteomyelitis and diski tis and septic arthritis at L3-L4 and L4-L5, which most likely is the reason. I advised her that wh en it hurt, she can get back in bed. She is doing well otherwise on the medication standpoint. OBJECTIVE: VITAL SIGNS: She is afebrile, heart rate 72, respirations 18, oxygen saturation is 97%, blood press ure 181/76. She was started on lisinopril 10 mg b.i.d. yesterday. CARDIOVASCULAR: S1, S2 plus. RESPIRATORY: Normal vesicular breath sounds. ABDOMEN: Soft, nontender, bowel sounds heard in all quadrants. EXTREMITIES: Without cyanosis or clubbing. IMPRESSION: 1. Osteomyelitis, diskitis and septic arthritis at L3-L4, L4-L5 with psoas abscess. 2. Hypertension, not well controlled. 3. Chronic low back pain. 4. Obesity. 5. Deconditioning. 6. History of rotator cuff tendinitis. 7. Improving renal function. PLAN: 1. Continue lisinopril. 2. Recheck BMP in the morning. 3. Continue IV antibiotics. 4. Weekly CBC, CRP, sed rate. 5. Activity: As tolerated. 6. Deep venous thrombosis and stress ulcer prophylaxis. 7. Decubitus precautions. 8. Reviewed Dr. Woodson's notes and he has not mentioned when he wants to follow up with her most likely after she is done with her antibiotics and discussed with patient in detail and all question s answered.
[2017-06-11] MEDS: Furosemide 40 MG TAB PO SCH (14:59)
[2017-06-11] MEDS: cefTRIAXone\\ROCEPHIN 2 GM in Sodium Chloride 0.9% 100 ML IVPB SCH (15:58)
[2017-06-11] MEDS: Enoxaparin Sodium 40 MG/0.4 ML SYRINGE SC SCH (20:55)
[2017-06-12 07:54] LABS: Vancomycin, Trough 17.4 ug/mL
[2017-06-12 08:16] LABS: Anion Gap 14 mmol/L (10-20); BUN (Urea Nitrogen) 18 mg/dL (9.8-20.1); Calc. Creatinine Clearance 71 mL/min (70-130); Calcium 8.8 mg/dL (7.8-10.44); Carbon Dioxide 31 mmol/L (23-31); Chloride 99 mmol/L (98-107); Estimated GFR-MDRD 52; Glucose 155 mg/dL (80-115); Potassium 3.5 mmol/L (3.5-5.1); Sodium 140 mmol/L (136-145)
[2017-06-12] MEDS: Gabapentin 300 MG CAP PO SCH ×3 (08:51→20:27)
[2017-06-12] MEDS: Labetalol HCl 100 MG TAB PO SCH ×2 (08:51→20:27)
[2017-06-12] MEDS: Multivitamin W/ Minerals 1 TAB PO SCH (08:51)
[2017-06-12] MEDS: hydrALAZINE 25 MG TAB PO SCH ×3 (08:51→20:27)
[2017-06-12] MEDS: Docusate 100 MG CAP PO SCH ×2 (08:52→20:26)
[2017-06-12] MEDS: Lisinopril 10 MG TAB PO SCH ×2 (08:52→20:28)
[2017-06-12] MEDS: cloNIDine 0.2 MG TAB PO SCH ×3 (08:52→20:26)
[2017-06-12] MEDS: Vancomycin HCl 1 GM in Sodium Chloride 0.9% 250 ML 250 ML IVPB SCH (08:55)
--- NOTE | 2017-06-12 12:35 | PRG ---
DATE OF SERVICE: 06/12/2017 SUBJECTIVE: Ms. Zuñiga is doing well. Denies any complaints, resting comfortably, slowly tolerat ing sitting up in her chair. Denies any concerns or questions. OBJECTIVE: VITAL SIGNS: She is afebrile, heart rate 75, respirations 18, oxygen saturation is 96%, and blood p ressure is 182/79. CARDIOVASCULAR: S1, S2 plus. RESPIRATORY: Normal vesicular breath sounds. ABDOMEN: Soft, nontender, bowel sounds heard in all quadrants. EXTREMITIES: Without cyanosis or clubbing. Peripheral pulses are palpable. CENTRAL NERVOUS SYSTEM: Grossly nonfocal. IMPRESSION: 1. Osteomyelitis, L4-L5 and diskitis and septic arthritis, L4-L5. 2. Hypertension, not well controlled. 3. Chronic pain. 4. Deconditioning. 5. Peripheral neuropathy. PLAN: 1. Continue current medications. 2. Nutritional support. 3. Deep venous thrombosis prophylaxis. 4. Decubitus precautions. 5. Adjust blood pressure medications. 6. Weekly CBC, CRP, sed rate. 7. I discussed with the patient in detail and all questions answered.
[2017-06-12] MEDS ORDERED: Lisinopril 10 MG TAB PO SCH (12:45)
[2017-06-12] MEDS: Furosemide 40 MG TAB PO SCH (13:35)
[2017-06-12] MEDS: cefTRIAXone\\ROCEPHIN 2 GM in Sodium Chloride 0.9% 100 ML IVPB SCH (15:20)
[2017-06-12] MEDS: Enoxaparin Sodium 40 MG/0.4 ML SYRINGE SC SCH (20:27)
[2017-06-13] MEDS: HYDROcodone/Acetaminophen 10/325 mg Tablet PO PRN (07:15)
[2017-06-13] MEDS: Vancomycin HCl 1 GM in Sodium Chloride 0.9% 250 ML 250 ML IVPB SCH (08:39)
[2017-06-13] MEDS: cloNIDine 0.2 MG TAB PO SCH ×3 (08:40→20:07)
[2017-06-13] MEDS: Gabapentin 300 MG CAP PO SCH ×3 (08:41→20:07)
[2017-06-13] MEDS: Docusate 100 MG CAP PO SCH ×2 (08:41→20:07)
[2017-06-13] MEDS: Lisinopril 10 MG TAB PO SCH ×2 (08:42→20:05)
[2017-06-13] MEDS: Labetalol HCl 100 MG TAB PO SCH ×2 (08:42→20:06)
[2017-06-13] MEDS: hydrALAZINE 25 MG TAB PO SCH ×3 (08:42→20:06)
[2017-06-13] MEDS: Multivitamin W/ Minerals 1 TAB PO SCH (08:43)
--- NOTE | 2017-06-13 13:02 | PRG ---
DATE OF SERVICE: 06/13/2017 SUBJECTIVE: Ms. Zuñiga is doing well except she is in pain in the morning and she is wondering if she can take 2 hydrocodone pills. I advised her that since she is on the [place] , I would not recommend that as that may increase more risk of constipation and somnolence. OBJECTIVE: VITAL SIGNS: She is afebrile, heart rate is 82, respirations are 18, oxygen saturation is 96%, bloo d pressure is much improved at 159/74. CARDIOVASCULAR: S1, S2 plus. RESPIRATORY: Normal vesicular breath sounds. ABDOMEN: Soft, nontender, obese. Bowel sounds heard in all quadrants. EXTREMITIES: Without cyanosis or clubbing. IMPRESSION: 1. Diskitis and septic arthritis at the L4-L5 on IV antibiotics. 2. Improving blood pressure. 3. Chronic pain. 4. Improving deconditioning. PLAN: 1. Continue current medications. 2. Nutritional support. 3. IV antibiotics. 4. CBC, CRP, and sed rate on 06/15/2017. 5. Continue therapy. 6. DVT and stress ulcer prophylaxis. 7. Decubitus precautions. 8. Discussed with patient in detail and all questions answered.
[2017-06-13] MEDS: Furosemide 40 MG TAB PO SCH (14:31)
[2017-06-13] MEDS: cefTRIAXone\\ROCEPHIN 2 GM in Sodium Chloride 0.9% 100 ML IVPB SCH (16:22)
[2017-06-13] MEDS: Enoxaparin Sodium 40 MG/0.4 ML SYRINGE SC SCH (20:05)
[2017-06-14] MEDS: HYDROcodone/Acetaminophen 10/325 mg Tablet PO PRN (07:36)
--- NOTE | 2017-06-14 08:27 | PRG ---
DATE OF SERVICE: 06/14/2017 SUBJECTIVE: Ms. Zuñiga is doing well. Denies any complaints, resting comfortably. Pain is slowl y improving. OBJECTIVE: VITAL SIGNS: She is afebrile, heart rate is 79, respirations are 20, blood pressure 151/68. CARDIOVASCULAR: S1, S2 plus. RESPIRATORY: Normal vesicular breath sounds. ABDOMEN: Soft, nontender, bowel sounds heard in all quadrants. EXTREMITIES: Without cyanosis or clubbing. CENTRAL NERVOUS SYSTEM: Improving weakness. IMPRESSION: 1. Diskitis and septic arthritis L4-L5. 2. Hypertension, improving control. 3. Chronic back pain. 4. Improving deconditioning. 5. Peripheral neuropathy. PLAN: 1. Continue current medications. 2. Check CBC and CRP and sed rate tomorrow. 3. Pain control. 4. Physical therapy. 5. DVT and stress ulcer prophylaxis. 6. Discussed with patient in detail and all questions answered.
[2017-06-14] MEDS: Labetalol HCl 100 MG TAB PO SCH ×2 (08:35→20:46)
[2017-06-14] MEDS: Lisinopril 10 MG TAB PO SCH ×2 (08:35→20:47)
[2017-06-14] MEDS: hydrALAZINE 25 MG TAB PO SCH ×3 (08:36→20:46)
[2017-06-14] MEDS: Docusate 100 MG CAP PO SCH ×2 (08:36→20:47)
[2017-06-14] MEDS: cloNIDine 0.2 MG TAB PO SCH ×3 (08:36→20:47)
[2017-06-14] MEDS: Gabapentin 300 MG CAP PO SCH ×3 (08:37→20:47)
[2017-06-14] MEDS: Multivitamin W/ Minerals 1 TAB PO SCH (08:37)
[2017-06-14] MEDS: Vancomycin HCl 1 GM in Sodium Chloride 0.9% 250 ML 250 ML IVPB SCH (08:41)
[2017-06-14] MEDS: cefTRIAXone\\ROCEPHIN 2 GM in Sodium Chloride 0.9% 100 ML IVPB SCH (15:20)
[2017-06-14] MEDS: Enoxaparin Sodium 40 MG/0.4 ML SYRINGE SC SCH ×2 (20:48→20:53)
[2017-06-15 07:11] LABS: #Eosinphils 0.3 thou/uL (0.0-0.7); #Lymphocytes 1.8 thou/uL (1.20-3.40); #Monocytes 0.5 thou/uL (0.11-0.59); %Basophils 0.5 % (0.0-1.0); %Eosinophils 3.8 % (0.0-10.0); %Lymphocytes 23.5 % (21.0-51.0); %Neutrophils 65.2 % (42.0-75.0); Hemoglobin 9.1 g/dL (12.0-16.0); Mean Corpuscular Hemoglobin 29.9 pg (27.0-31.0); Mean Corpuscular Volume 96.5 fl (81.0-99.0); Mean Platelet Volume 5.3 fL (7.4-10.4); Platelet Count 271 thou/uL (130-400); RBC Distribution Width 17.1 % (11.5-14.5); Red Blood Cell (RBC) Count 3.05 mill/uL (4.20-5.40); White Blood Cell (WBC) Count 7.6 thou/uL (4.8-10.8)
[2017-06-15 07:21] LABS: Vancomycin, Trough 16.2 ug/mL
[2017-06-15 07:26] LABS: ALT (SGPT) 14 U/L (8-55); AST (SGOT) 12 U/L (5-34); Albumin 2.7 g/dL (3.4-4.8); Alkaline Phosphatase 77 U/L (40-150); Anion Gap 12 mmol/L (10-20); BUN (Urea Nitrogen) 19 mg/dL (9.8-20.1); Bilirubin, Total 0.2 mg/dL (0.2-1.2); Calc. Creatinine Clearance 67 mL/min (70-130); Calcium 8.7 mg/dL (7.8-10.44); Carbon Dioxide 30 mmol/L (23-31); Chloride 102 mmol/L (98-107); Estimated GFR-MDRD 50; Globulin 3.5 g/dL (2.4-3.5); Glucose 149 mg/dL (80-115); Potassium 3.8 mmol/L (3.5-5.1); Protein, Total 6.2 g/dL (6.0-8.3); Sodium 140 mmol/L (136-145)
[2017-06-15] MEDS: Furosemide 20 MG TAB PO SCH (07:30)
[2017-06-15] MEDS ORDERED: Furosemide 40 MG TAB PO SCH (07:30)
[2017-06-15] MEDS: Vancomycin HCl 1 GM in Sodium Chloride 0.9% 250 ML 250 ML IVPB SCH (08:45)
[2017-06-15] MEDS: Lisinopril 10 MG TAB PO SCH ×2 (08:46→21:36)
[2017-06-15] MEDS: Labetalol HCl 100 MG TAB PO SCH ×2 (08:46→21:36)
[2017-06-15] MEDS: cloNIDine 0.2 MG TAB PO SCH ×3 (08:47→21:37)
[2017-06-15] MEDS: Docusate 100 MG CAP PO SCH ×2 (08:47→21:36)
[2017-06-15] MEDS: Multivitamin W/ Minerals 1 TAB PO SCH (08:47)
[2017-06-15] MEDS: Gabapentin 300 MG CAP PO SCH ×3 (08:47→21:37)
[2017-06-15] MEDS: HYDROcodone/Acetaminophen 10/325 mg Tablet PO PRN ×2 (08:48→21:41)
[2017-06-15] MEDS: hydrALAZINE 25 MG TAB PO SCH ×3 (08:48→21:35)
[2017-06-15] MEDS: cefTRIAXone\\ROCEPHIN 2 GM in Sodium Chloride 0.9% 100 ML IVPB SCH (15:29)
[2017-06-15] MEDS: Enoxaparin Sodium 40 MG/0.4 ML SYRINGE SC SCH (21:37)
[2017-06-16] MEDS: Furosemide 20 MG TAB PO SCH (06:41)
[2017-06-16] MEDS: HYDROcodone/Acetaminophen 10/325 mg Tablet PO PRN ×2 (06:41→20:27)
[2017-06-16] MEDS: Labetalol HCl 100 MG TAB PO SCH ×2 (10:43→20:26)
[2017-06-16] MEDS: hydrALAZINE 25 MG TAB PO SCH ×3 (10:43→20:26)
[2017-06-16] MEDS: Lisinopril 10 MG TAB PO SCH ×2 (10:44→20:25)
[2017-06-16] MEDS: Multivitamin W/ Minerals 1 TAB PO SCH (10:44)
[2017-06-16] MEDS: Docusate 100 MG CAP PO SCH ×2 (10:45→20:25)
[2017-06-16] MEDS: cloNIDine 0.2 MG TAB PO SCH ×3 (10:45→20:27)
[2017-06-16] MEDS: Gabapentin 300 MG CAP PO SCH ×3 (10:46→20:25)
[2017-06-16] MEDS: Vancomycin HCl 1 GM in Sodium Chloride 0.9% 250 ML 250 ML IVPB SCH (11:14)
[2017-06-16] MEDS ORDERED: Labetalol HCl 100 MG TAB PO SCH (12:00)
--- NOTE | 2017-06-16 12:19 | PRG ---
DATE OF SERVICE: 06/15/2017 SUBJECTIVE: The patient feels well with slowly improving pain, no shortness of breath, no chest radha n. OBJECTIVE: VITAL SIGNS: Shows blood pressure 168/72, pulse 79, temperature 98, O2 sats 97, respirations 18. LUNGS: Clear. CARDIAC: Examination shows regular rhythm. ABDOMEN: Soft and nontender. SKIN AND EXTREMITIES: Showed no edema, clubbing, cyanosis. Vancomycin trough level returns therapeutic at 16.2, but is slowly worsening and will discuss with terri worthington and Dr. Villavicencio and probably repeat again on Saturday. ASSESSMENT: 1. Resolving diskitis at L4-L5 on IV Rocephin and vancomycin. 2. Stable hypertension. 3. Slowly improving deconditioning. PLAN: Repeat vancomycin trough level next week. Continue present dose. Continue PT, OT. Continue DVT and stress ulcer prophylaxis.
[2017-06-16] MEDS: cefTRIAXone\\ROCEPHIN 2 GM in Sodium Chloride 0.9% 100 ML IVPB SCH (16:38)
[2017-06-16] MEDS: Enoxaparin Sodium 40 MG/0.4 ML SYRINGE SC SCH (20:28)
[2017-06-17] MEDS: HYDROcodone/Acetaminophen 10/325 mg Tablet PO PRN ×2 (06:10→15:05)
[2017-06-17] MEDS: Furosemide 20 MG TAB PO SCH (08:28)
[2017-06-17] MEDS: Vancomycin HCl 1 GM in Sodium Chloride 0.9% 250 ML 250 ML IVPB SCH (08:28)
[2017-06-17] MEDS: cloNIDine 0.2 MG TAB PO SCH (08:29)
[2017-06-17] MEDS: Labetalol HCl 100 MG TAB PO SCH ×2 (08:30→20:18)
[2017-06-17] MEDS: Gabapentin 300 MG CAP PO SCH ×3 (08:30→20:18)
[2017-06-17] MEDS: Docusate 100 MG CAP PO SCH ×2 (08:30→19:56)
[2017-06-17] MEDS: Multivitamin W/ Minerals 1 TAB PO SCH (08:31)
[2017-06-17] MEDS: Lisinopril 10 MG TAB PO SCH ×2 (08:31→20:19)
[2017-06-17] MEDS: hydrALAZINE 25 MG TAB PO SCH ×4 (08:40→20:17)
--- NOTE | 2017-06-17 13:02 | PRG ---
DATE OF SERVICE: 06/17/2017 SUBJECTIVE: Ms. Zuñiga is doing well. Denies any complaints, resting comfortably, tolerating her therapy. She states that she can sit in the particular chair and she is not having any right leg p ain, but otherwise she gets this pain in the right leg which seems to radiate from her back. Denies any fever or chills. OBJECTIVE: VITAL SIGNS: She is afebrile, heart rate is 77, respirations are 20, blood pressure is 188/86. CARDIOVASCULAR SYSTEM: S1, S2 plus. RESPIRATORY SYSTEM: Normal vesicular breath sounds. ABDOMEN: Soft, obese, nontender, bowel sounds heard in all quadrants. EXTREMITIES: Without cyanosis, clubbing. No muscle spasticity noted. CENTRAL NERVOUS SYSTEM: Grossly nonfocal. LABORATORY VALUES: White count is 7.6, H\T\H is 9.1 and 29.4. Sed rate is down to 67. Sodium 140, potassium 3.8, BUN and creatinine 19 and 1.29. CRP is down to 4. IMPRESSION: 1. L4-L5 diskitis and possible infectious arthritis, improving with IV antibiotics. 2. Hypertension, fluctuating control. 3. Chronic pain. 4. Improving deconditioning. PLAN: 1. Increase lisinopril to 30 mg b.i.d. 2. Continue low sodium diet. 3. Continue IV antibiotics. 4. Nutritional support. 5. DVT and stress ulcer prophylaxis. 6. Decubitus precautions.
[2017-06-17] MEDS: cloNIDine 0.1 MG TAB PO SCH ×2 (14:47→20:18)
[2017-06-17] MEDS: cefTRIAXone\\ROCEPHIN 2 GM in Sodium Chloride 0.9% 100 ML IVPB SCH (15:06)
[2017-06-17] MEDS: Enoxaparin Sodium 40 MG/0.4 ML SYRINGE SC SCH (19:56)
[2017-06-18] MEDS: HYDROcodone/Acetaminophen 10/325 mg Tablet PO PRN ×3 (00:07→20:58)
[2017-06-18 07:12] LABS: Vancomycin, Trough 16.2 ug/mL
[2017-06-18] MEDS: Furosemide 20 MG TAB PO SCH (08:34)
[2017-06-18] MEDS: cloNIDine 0.1 MG TAB PO SCH ×3 (08:34→20:56)
[2017-06-18] MEDS: Vancomycin HCl 1 GM in Sodium Chloride 0.9% 250 ML 250 ML IVPB SCH (08:34)
[2017-06-18] MEDS: Gabapentin 300 MG CAP PO SCH ×3 (08:35→20:57)
[2017-06-18] MEDS: Docusate 100 MG CAP PO SCH ×2 (08:35→20:58)
[2017-06-18] MEDS: Labetalol HCl 100 MG TAB PO SCH ×2 (08:35→20:56)
[2017-06-18] MEDS: hydrALAZINE 25 MG TAB PO SCH ×3 (08:35→20:55)
[2017-06-18] MEDS: Lisinopril 10 MG TAB PO SCH ×2 (08:36→20:55)
[2017-06-18] MEDS: Multivitamin W/ Minerals 1 TAB PO SCH (08:37)
--- NOTE | 2017-06-18 13:16 | PRG ---
DATE OF SERVICE: 06/18/2017 SUBJECTIVE: Ms. Zuñiga is doing well. Denies any complaints, resting comfortably. She walked al l the way around the nurses' station. She had then sat up for two and half hours. Denies any martha rns or questions. OBJECTIVE: VITAL SIGNS: She is afebrile, heart rate is 70, respirations 18, oxygen saturation is 97%, blood pr essure continues to remain high at 190/86 and it was 156/64 last night. Her clonidine was increased last night 2.3 mg t.i.d. We will continue to monitor and adjust the medications. CARDIOVASCULAR: S1, S2 plus. RESPIRATORY: Normal vesicular breath sounds. ABDOMEN: Soft, nontender, bowel sounds heard in all quadrants. EXTREMITIES: Without cyanosis or clubbing. CENTRAL NERVOUS SYSTEM: Improving deconditioning. IMPRESSION: 1. L4-L5 diskitis. 2. Hypertension, not well controlled. 3. Improving deconditioning. 4. Chronic pain. 5. Obesity. PLAN: 1. Continue current medications. 2. Low sodium diet. 3. Cut down on caffeinated drinks. 4. DVT and stress ulcer prophylaxis. 5. Decubitus precautions. 6. Weekly CBC, CRP, and sed rate. 7. IV antibiotics for a total of 6 weeks. 8. Continue physical therapy. 9. I discussed with the patient and nursing in detail and all questions answered.
[2017-06-18] MEDS: cefTRIAXone\\ROCEPHIN 2 GM in Sodium Chloride 0.9% 100 ML IVPB SCH (16:00)
[2017-06-18] MEDS: Enoxaparin Sodium 40 MG/0.4 ML SYRINGE SC SCH (20:58)
[2017-06-19] MEDS: HYDROcodone/Acetaminophen 10/325 mg Tablet PO PRN (06:21)
[2017-06-19] MEDS: cloNIDine 0.1 MG TAB PO SCH ×3 (08:50→20:23)
[2017-06-19] MEDS: Vancomycin HCl 1 GM in Sodium Chloride 0.9% 250 ML 250 ML IVPB SCH (08:50)
[2017-06-19] MEDS: Docusate 100 MG CAP PO SCH ×2 (08:51→20:23)
[2017-06-19] MEDS: Multivitamin W/ Minerals 1 TAB PO SCH (08:51)
[2017-06-19] MEDS: Furosemide 20 MG TAB PO SCH (08:51)
[2017-06-19] MEDS: hydrALAZINE 25 MG TAB PO SCH ×3 (08:51→20:24)
[2017-06-19] MEDS: Gabapentin 300 MG CAP PO SCH ×3 (08:52→20:24)
[2017-06-19] MEDS: Labetalol HCl 100 MG TAB PO SCH ×2 (08:52→20:24)
[2017-06-19] MEDS: Lisinopril 10 MG TAB PO SCH ×2 (08:52→20:25)
--- NOTE | 2017-06-19 12:30 | PRG ---
DATE OF SERVICE: 06/19/2017 SUBJECTIVE: Ms. Zuñiga is doing well. Denies any complaints, resting comfortably. She apparentl y was called by Dr. Woodson's office and she is going to see him next Saturday. She states that the pain is slowly improving. Denies any fever or chills. Denies any chest pain or shortness of br eath. OBJECTIVE: VITAL SIGNS: She is afebrile, heart rate is 73, respiration 20, blood pressure 153/67. CARDIOVASCULAR SYSTEM: S1, S2 plus. RESPIRATORY SYSTEM: Normal vesicular breath sounds. ABDOMEN: Soft, nontender, bowel sounds heard in all quadrants. EXTREMITIES: Without cyanosis or clubbing. CENTRAL NERVOUS SYSTEM: Improving deconditioning. IMPRESSION: 1. L4-L5 diskitis and septic arthritis per MRI. 2. Hypertension, gradual improvement. 3. Chronic pain. 4. Improving deconditioning. 5. Obesity. PLAN: 1. Continue current medications. 2. Add amlodipine 10 mg at night. 3. Weekly CBC, CRP, sed rate, it is due Saturday. 4. DVT and stress ulcer prophylaxis. 5. Decubitus precautions. 6. Nutritional support. 7. Continue physical therapy. 8. No family at the bedside. 9. Discussed with patient in detail and all questions answered.
[2017-06-19] MEDS: cefTRIAXone\\ROCEPHIN 2 GM in Sodium Chloride 0.9% 100 ML IVPB SCH (15:53)
[2017-06-19] MEDS: Amlodipine 10 MG TAB PO SCH (20:22)
[2017-06-19] MEDS: Enoxaparin Sodium 40 MG/0.4 ML SYRINGE SC SCH (20:24)
[2017-06-19] MEDS ORDERED: Amlodipine 10 MG TAB PO SCH (21:00)
[2017-06-20] MEDS: HYDROcodone/Acetaminophen 10/325 mg Tablet PO PRN ×3 (00:22→15:21)
[2017-06-20] MEDS: Gabapentin 300 MG CAP PO SCH ×3 (09:29→21:10)
[2017-06-20] MEDS: Furosemide 20 MG TAB PO SCH (09:29)
[2017-06-20] MEDS: Vancomycin HCl 1 GM in Sodium Chloride 0.9% 250 ML 250 ML IVPB SCH (09:29)
[2017-06-20] MEDS: Lisinopril 10 MG TAB PO SCH ×2 (09:30→21:12)
[2017-06-20] MEDS: cloNIDine 0.1 MG TAB PO SCH ×3 (09:30→21:10)
[2017-06-20] MEDS: Multivitamin W/ Minerals 1 TAB PO SCH (09:30)
[2017-06-20] MEDS: Labetalol HCl 100 MG TAB PO SCH ×2 (09:30→21:11)
[2017-06-20] MEDS: Docusate 100 MG CAP PO SCH ×2 (09:31→21:12)
[2017-06-20] MEDS: hydrALAZINE 25 MG TAB PO SCH ×3 (10:40→21:10)
[2017-06-20] MEDS: cefTRIAXone\\ROCEPHIN 2 GM in Sodium Chloride 0.9% 100 ML IVPB SCH (15:24)
--- NOTE | 2017-06-20 15:58 | PRG ---
DATE OF SERVICE: 06/20/2017 SUBJECTIVE: Ms. Zuñiga is doing well. Denies any complaints, resting comfortably, tolerating her therapy. Denies any lightheadedness, dizziness. Her family is in the room. OBJECTIVE: VITAL SIGNS: She is afebrile, heart rate is 74, respiration is 18, oxygen saturation 98%, and blood pressure is 176/77. CARDIOVASCULAR: S1 and S2 plus. RESPIRATORY: Normal vesicular breath sounds. ABDOMEN: Soft, obese, nontender, bowel sounds heard in all quadrants. EXTREMITIES: Without cyanosis or clubbing. CENTRAL NERVOUS SYSTEM: Improving weakness. IMPRESSION: 1. L4-L5 diskitis and septic arthritis. 2. Hypertension, not well controlled. 3. Obesity. 4. Chronic pain. 5. Improving deconditioning. PLAN: 1. She was just started on amlodipine, we will give it couple of days before adjusting the dosage. 2. Advised her to stop drinking so much caffeine, she drinks 2-3 big bottles of caffeinated sodas d aily. 3. Continue current medications. 4. DVT and stress ulcer prophylaxis. 5. Decubitus precautions. 6. Routine laboratory values. 7. Dr. Pederson correspondence review clerk from this evening until Saturday 9:00 p.m., I discuss with patient and family in detail and all questions answered.
[2017-06-20] MEDS: Amlodipine 10 MG TAB PO SCH (21:10)
[2017-06-20] MEDS: Enoxaparin Sodium 40 MG/0.4 ML SYRINGE SC SCH (21:12)
[2017-06-21] MEDS: HYDROcodone/Acetaminophen 10/325 mg Tablet PO PRN ×2 (07:14→13:18)
[2017-06-21] MEDS: Furosemide 20 MG TAB PO SCH (07:14)
[2017-06-21 08:13] LABS: Vancomycin, Trough 16.5 ug/mL
[2017-06-21] MEDS: hydrALAZINE 25 MG TAB PO SCH ×3 (09:23→20:56)
[2017-06-21] MEDS: cloNIDine 0.1 MG TAB PO SCH ×3 (09:24→20:55)
[2017-06-21] MEDS: Labetalol HCl 100 MG TAB PO SCH ×2 (09:24→20:56)
[2017-06-21] MEDS: Gabapentin 300 MG CAP PO SCH ×3 (09:24→20:56)
[2017-06-21] MEDS: Lisinopril 10 MG TAB PO SCH ×2 (09:24→20:57)
[2017-06-21] MEDS: Vancomycin HCl 1 GM in Sodium Chloride 0.9% 250 ML 250 ML IVPB SCH (09:27)
[2017-06-21] MEDS: Multivitamin W/ Minerals 1 TAB PO SCH (09:35)
[2017-06-21] MEDS: Docusate 100 MG CAP PO SCH ×2 (09:36→20:56)
--- NOTE | 2017-06-21 10:34 | PRG ---
DATE OF SERVICE: 06/21/2017 SUBJECTIVE: The patient feels better, still having problems controlling her urine, going to the bat hroom all times, despite changing to noncaffeinated soda. She states this is related to her previou s uterine cancer radiation. She has minimal back pain, has been tolerating her antibiotics well. H aving no nausea, vomiting, diarrhea, constipation. OBJECTIVE: VITAL SIGNS: Shows her blood pressure is 179/78 this morning, temperature is 97, pulse 73, respirat ions 18, and O2 sats 96%. LUNGS: Clear. CARDIAC: Examination showed regular rhythm. ABDOMEN: Soft and nontender. LABORATORY DATA: Sedimentation rate is improving as earlier this week and creatinine has been stabl e. ASSESSMENT AND PLAN: 1. Resolving L4-L5 diskitis. 2. Hypertension, still uncontrolled on increased amlodipine of 10 mg nightly and we will continue t o monitor and may need to add another medication. 3. Persistent urination, some incontinence despite discontinuation of caffeine and we will start on oxybutynin 5 mg at night and monitor.
[2017-06-21] MEDS: cefTRIAXone\\ROCEPHIN 2 GM in Sodium Chloride 0.9% 100 ML IVPB SCH (18:02)
[2017-06-21] MEDS: Amlodipine 10 MG TAB PO SCH (20:55)
[2017-06-21] MEDS: Enoxaparin Sodium 40 MG/0.4 ML SYRINGE SC SCH (20:56)
[2017-06-21 21:54] LABS: Bilirubin Negative (Negative); Blood, Urine Negative (Negative); Glucose, Urine (Dipstick) Negative (Negative); Leukocyte Trace (Negative); Nitrite Negative (Negative); Protein, Urine (Dipstick) Negative (Neg-Trace); Specific Gravity, Urine 1.015 (1.005-1.030); Urobilinogen 0.2 mg/dL (0.2-1.0)
[2017-06-21 22:06] LABS: Clarity SL HAZY (Clear)
[2017-06-21 22:07] LABS: Squamous Epithelial 0-3 HPF (0-3); WBC/HPF 0-3 HPF (0-3); Yeast-All Forms 1+ HPF (None Seen)
[2017-06-22] MEDS: HYDROcodone/Acetaminophen 10/325 mg Tablet PO PRN ×2 (00:02→05:40)
[2017-06-22] MEDS: Furosemide 20 MG TAB PO SCH (07:30)
[2017-06-22] MEDS: Vancomycin HCl 1 GM in Sodium Chloride 0.9% 250 ML 250 ML IVPB SCH (08:00)
[2017-06-22] MEDS: Labetalol HCl 100 MG TAB PO SCH ×2 (09:06→21:10)
[2017-06-22] MEDS: Gabapentin 300 MG CAP PO SCH ×3 (09:06→21:12)
[2017-06-22] MEDS: cloNIDine 0.1 MG TAB PO SCH ×3 (09:08→21:10)
[2017-06-22] MEDS: Oxybutynin ER 5 MG TAB PO SCH (09:09)
[2017-06-22] MEDS: hydrALAZINE 25 MG TAB PO SCH ×3 (09:10→21:11)
[2017-06-22] MEDS: Lisinopril 10 MG TAB PO SCH ×2 (09:15→21:09)
[2017-06-22] MEDS: Multivitamin W/ Minerals 1 TAB PO SCH (09:17)
[2017-06-22] MEDS: Docusate 100 MG CAP PO SCH ×2 (09:18→21:12)
[2017-06-22] MEDS: cefTRIAXone\\ROCEPHIN 2 GM in Sodium Chloride 0.9% 100 ML IVPB SCH (16:07)
[2017-06-22] MEDS: Amlodipine 10 MG TAB PO SCH (21:10)
[2017-06-22] MEDS: Enoxaparin Sodium 40 MG/0.4 ML SYRINGE SC SCH (21:12)
[2017-06-23] MEDS: HYDROcodone/Acetaminophen 10/325 mg Tablet PO PRN ×3 (00:17→09:08)
[2017-06-23] MEDS: Furosemide 20 MG TAB PO SCH (07:30)
[2017-06-23] MEDS: Vancomycin HCl 1 GM in Sodium Chloride 0.9% 250 ML 250 ML IVPB SCH (08:05)
[2017-06-23] MEDS: Oxybutynin ER 5 MG TAB PO SCH (08:54)
[2017-06-23] MEDS: Docusate 100 MG CAP PO SCH ×2 (08:54→21:26)
[2017-06-23] MEDS: Multivitamin W/ Minerals 1 TAB PO SCH (08:54)
[2017-06-23] MEDS: Lisinopril 10 MG TAB PO SCH ×2 (08:55→21:25)
[2017-06-23] MEDS: hydrALAZINE 25 MG TAB PO SCH ×3 (08:55→21:23)
[2017-06-23] MEDS: cloNIDine 0.1 MG TAB PO SCH ×3 (08:56→21:24)
[2017-06-23] MEDS: Gabapentin 300 MG CAP PO SCH ×3 (08:57→21:26)
[2017-06-23] MEDS: Labetalol HCl 100 MG TAB PO SCH ×2 (09:02→21:24)
--- NOTE | 2017-06-23 09:53 | PRG ---
DATE OF SERVICE: 06/22/2017 SUBJECTIVE: The patient feels much better with decreased back pain, increased strength, going to ba throom much less and drinking less carbonated soft drinks. OBJECTIVE: Shows, VITAL SIGNS: Temperature is 156/69, pulse 76, afebrile. Intake and output shows patient taking in 3200, but now 400, but 5 unmeasured voids. LUNGS: Clear. CARDIAC EXAMINATION: Shows regular rhythm. ABDOMEN: Soft and nontender. ASSESSMENT AND PLAN: 1. Resolving L4-L5 diskitis. 2. Improved blood pressure control at 156/69. 3. Persistent urination, on control at this time, and will appear to be improved somewhat on oxybut ynin. We will monitor.
--- NOTE | 2017-06-23 11:06 | PRG ---
DATE OF SERVICE: 06/23/2017 SUBJECTIVE: The patient in the bathroom to make a shower with only complaints of back pain and leg pain. OBJECTIVE: VITAL SIGNS: Intake and output shows 3200 in and 400 out, but multiple not measured. Blood pressur e 176/76, pulse 74, temperature is 98, respirations 19. LUNGS: Clear. CARDIAC: Examination showed regular rhythm. ABDOMEN: Soft and nontender. BACK: Shows some muscle spasms, but no drainage or erythema. ASSESSMENT: 1. L4-L5 diskitis, improving. 2. Hypertension, not well controlled. 3. Obesity. 4. Chronic pain. PLAN: Continue clonidine 0.3 three times daily, hydralazine 100 three times daily, lisinopril 20 tw ice daily, amlodipine 10 daily, and labetalol 300 twice daily, and discussed with Dr. Villavicencio about ot her medication.
[2017-06-23] MEDS: cefTRIAXone\\ROCEPHIN 2 GM in Sodium Chloride 0.9% 100 ML IVPB SCH (15:58)
[2017-06-23] MEDS ORDERED: Sodium Chloride 0.9% 20 ML ONE (17:26)
[2017-06-23] MEDS: Amlodipine 10 MG TAB PO SCH (21:25)
[2017-06-23] MEDS: Enoxaparin Sodium 40 MG/0.4 ML SYRINGE SC SCH (21:26)
[2017-06-24] MEDS: HYDROcodone/Acetaminophen 10/325 mg Tablet PO PRN ×2 (00:41→06:28)
[2017-06-24 07:36] LABS: Vancomycin, Trough 15.9 ug/mL
[2017-06-24] MEDS: Docusate 100 MG CAP PO SCH ×2 (08:34→22:09)
[2017-06-24] MEDS: Labetalol HCl 100 MG TAB PO SCH ×2 (08:34→22:08)
[2017-06-24] MEDS: Vancomycin HCl 1 GM in Sodium Chloride 0.9% 250 ML 250 ML IVPB SCH (08:34)
[2017-06-24] MEDS: cloNIDine 0.1 MG TAB PO SCH ×3 (08:35→22:08)
[2017-06-24] MEDS: hydrALAZINE 25 MG TAB PO SCH ×3 (08:35→22:07)
[2017-06-24] MEDS: Lisinopril 10 MG TAB PO SCH ×2 (08:35→22:08)
[2017-06-24] MEDS: Oxybutynin ER 5 MG TAB PO SCH (08:36)
[2017-06-24] MEDS: Multivitamin W/ Minerals 1 TAB PO SCH (08:36)
[2017-06-24] MEDS: Gabapentin 300 MG CAP PO SCH ×3 (08:36→22:09)
[2017-06-24] MEDS: Furosemide 20 MG TAB PO SCH (08:36)
--- NOTE | 2017-06-24 13:27 | PRG ---
DATE OF SERVICE: 06/24/2017 SUBJECTIVE: Ms. Zuñiga is doing well. Denies any complaints, resting comfortably, tolerating her therapy. She is getting more active. OBJECTIVE: VITAL SIGNS: She is afebrile, heart rate is 82, respirations 16, blood pressure 154/68. CARDIOVASCULAR: S1, S2 plus. RESPIRATORY: Normal vesicular breath sounds. ABDOMEN: Soft, nontender, bowel sounds heard in all quadrants. EXTREMITIES: Without cyanosis or clubbing. Peripheral pulses are palpable. IMPRESSION: 1. Osteomyelitis and diskitis of the L3-L4. 2. Hypertension, improving control. 3. Obesity. 4. Improving deconditioning. 5. Chronic pain. 6. Anemia of chronic disease. PLAN: 1. Check CBC, CRP, and sed rate. 2. She has an appointment with Dr. Woodson on Saturday. 3. Continue DVT and stress ulcer prophylaxis. 4. Physical therapy. 5. Antibiotics IV for a total of 6 weeks. 6. Nutritional support. 7. I discussed with the patient in detail and all questions answered.
[2017-06-24] MEDS: cefTRIAXone\\ROCEPHIN 2 GM in Sodium Chloride 0.9% 100 ML IVPB SCH (16:09)
[2017-06-24] MEDS: Amlodipine 10 MG TAB PO SCH (22:08)
[2017-06-24] MEDS: Enoxaparin Sodium 40 MG/0.4 ML SYRINGE SC SCH (22:09)
[2017-06-25 05:46] LABS: #Eosinphils 0.3 thou/uL (0.0-0.7); #Lymphocytes 1.7 thou/uL (1.20-3.40); #Monocytes 0.5 thou/uL (0.11-0.59); #Neutrophils 5.4 thou/uL (1.40-6.50); %Basophils 0.4 % (0.0-1.0); %Eosinophils 4.1 % (0.0-10.0); %Lymphocytes 21.6 % (21.0-51.0); %Monocytes 6.6 % (0.0-10.0); %Neutrophils 67.3 % (42.0-75.0); Hemoglobin 9.3 g/dL (12.0-16.0); Mean Corpuscular HGB CONC 30.3 g/dL (32.0-36.0); Mean Corpuscular Hemoglobin 29.2 pg (27.0-31.0); Mean Corpuscular Volume 96.4 fl (81.0-99.0); Mean Platelet Volume 6.1 fL (7.4-10.4); Platelet Count 261 thou/uL (130-400); RBC Distribution Width 16.3 % (11.5-14.5); Red Blood Cell (RBC) Count 3.19 mill/uL (4.20-5.40)
[2017-06-25 06:07] LABS: ALT (SGPT) 8 U/L (8-55); AST (SGOT) 10 U/L (5-34); Alkaline Phosphatase 67 U/L (40-150); Anion Gap 13 mmol/L (10-20); BUN (Urea Nitrogen) 17 mg/dL (9.8-20.1); Bilirubin, Total 0.2 mg/dL (0.2-1.2); CRP (Inflammatory) 3.72 mg/dL (= or < 0.5); Calc. Creatinine Clearance 66 mL/min (70-130); Carbon Dioxide 30 mmol/L (23-31); Chloride 101 mmol/L (98-107); Estimated GFR-MDRD 46; Globulin 3.6 g/dL (2.4-3.5); Glucose 170 mg/dL (80-115); Potassium 3.8 mmol/L (3.5-5.1); Protein, Total 6.6 g/dL (6.0-8.3); Sodium 140 mmol/L (136-145)
[2017-06-25 06:13] VITALS: BMI 36.3
[2017-06-25] MEDS: HYDROcodone/Acetaminophen 10/325 mg Tablet PO PRN ×3 (06:22→23:37)
[2017-06-25] MEDS: Labetalol HCl 100 MG TAB PO SCH ×2 (09:19→21:14)
[2017-06-25] MEDS: hydrALAZINE 25 MG TAB PO SCH ×3 (09:19→21:13)
[2017-06-25] MEDS: cloNIDine 0.1 MG TAB PO SCH ×3 (09:20→21:13)
[2017-06-25] MEDS: Lisinopril 10 MG TAB PO SCH ×2 (09:20→21:14)
[2017-06-25] MEDS: Oxybutynin ER 5 MG TAB PO SCH (09:20)
[2017-06-25] MEDS: Furosemide 20 MG TAB PO SCH (09:21)
[2017-06-25] MEDS: Vancomycin HCl 1 GM in Sodium Chloride 0.9% 250 ML 250 ML IVPB SCH (09:21)
[2017-06-25] MEDS: Multivitamin W/ Minerals 1 TAB PO SCH (09:21)
[2017-06-25] MEDS ORDERED: cefTRIAXone\\ROCEPHIN 2 GM VIAL ONE (15:17)
[2017-06-25] MEDS ORDERED: Gabapentin 300 MG CAP ONE (15:18)
[2017-06-25] MEDS: Gabapentin 300 MG CAP PO SCH ×3 (15:19→21:15)
[2017-06-25] MEDS ORDERED: hydrALAZINE 25 MG TAB ONE (15:19)
[2017-06-25] MEDS ORDERED: cloNIDine 0.1mg/24 Hour PATCH ONE (15:20)
[2017-06-25] MEDS ORDERED: cloNIDine 0.1 MG TAB ONE (15:21)
[2017-06-25] MEDS: cefTRIAXone\\ROCEPHIN 2 GM in Sodium Chloride 0.9% 100 ML IVPB SCH (16:18)
[2017-06-25] MEDS: Docusate 100 MG CAP PO SCH ×2 (17:20→21:15)
[2017-06-25] MEDS: Amlodipine 10 MG TAB PO SCH (21:14)
[2017-06-25] MEDS: Enoxaparin Sodium 40 MG/0.4 ML SYRINGE SC SCH (21:15)
[2017-06-26] MEDS: hydrALAZINE 25 MG TAB PO SCH ×3 (07:49→20:58)
[2017-06-26] MEDS: cloNIDine 0.1 MG TAB PO SCH ×3 (07:49→20:57)
[2017-06-26] MEDS: Labetalol HCl 100 MG TAB PO SCH ×2 (07:50→20:59)
[2017-06-26] MEDS: Furosemide 20 MG TAB PO SCH (07:50)
[2017-06-26] MEDS: Gabapentin 300 MG CAP PO SCH (07:50)
[2017-06-26] MEDS: Oxybutynin ER 5 MG TAB PO SCH (07:51)
[2017-06-26] MEDS: Lisinopril 10 MG TAB PO SCH ×2 (07:51→20:59)
[2017-06-26] MEDS: Multivitamin W/ Minerals 1 TAB PO SCH (07:52)
[2017-06-26] MEDS: Vancomycin HCl 1 GM in Sodium Chloride 0.9% 250 ML 250 ML IVPB SCH (07:52)
[2017-06-26] MEDS: HYDROcodone/Acetaminophen 10/325 mg Tablet PO PRN (08:08)
[2017-06-26] MEDS: Docusate 100 MG CAP PO SCH ×2 (09:00→20:58)
[2017-06-26] MEDS ORDERED: Gabapentin 300 MG CAP PO SCH (12:59)
--- NOTE | 2017-06-26 13:09 | PRG ---
DATE OF SERVICE: 06/26/2017 SUBJECTIVE: Ms. Zuñiga just saw Dr. Woodson and she is back. Dr. Woodson did not make any ch anges to her medications. She was given some therapy orders. She continues to have pain and she is wondering if the increase in gabapentin may help. OBJECTIVE: VITAL SIGNS: She is afebrile, heart rate is 73, respirations 18, blood pressure 168/67. CARDIOVASCULAR SYSTEM: S1, S2 plus. RESPIRATORY SYSTEM: Normal vesicular breath sounds. ABDOMEN: Soft, nontender, bowel sounds heard in all quadrants. EXTREMITIES: Without cyanosis or clubbing. LABORATORY VALUES: Sed rate is down to 60. H\T\H is 9.3 and 30.8. Sodium 140, potassium 3.8, BUN and creatinine is 17 and 1.37. CRP is down to 3.72. IMPRESSION: 1. Improving diskitis and osteomyelitis in the lumbar spine, status post laminectomy. 2. Hypertension, fluctuating control. 3. Chronic pain. 4. Depression. 5. Deconditioning. PLAN: 1. Increase gabapentin to 300 mg q.i.d. 2. Continue citalopram. 3. IV antibiotics. 4. Therapy per Dr. Woodson's instructions. 5. DVT and stress ulcer prophylaxis. 6. Decubitus precautions. 7. Routine laboratory values.
--- NOTE | 2017-06-26 13:12 | PRG ---
DATE OF SERVICE: 06/25/2017 Note, the [employer] system was down yesterday, so could not get access to any of her labs or vital si gns, so the note is being dictated today once the [employer] system is back up and running. SUBJECTIVE: Ms. Zuñiga is doing well. Denies any complaints, resting comfortably, tolerating her medications. She seems a little depressed. She just wants to be able to get up and do things on h er own and I had a long encouraging talk with her and I explained to her to focus on just a day to d ay things and try to do a little bit more each day and not focus on the end result. She has an appo intment with Dr. Woodson for Saturday. OBJECTIVE: VITAL SIGNS: She is afebrile, blood pressure is 145/67, heart rate is 78, respirations are 19. CARDIOVASCULAR: S1, S2 plus. RESPIRATORY: Normal vesicular breath sounds. ABDOMEN: Soft, nontender, bowel sounds heard in all quadrants. EXTREMITIES: Without cyanosis or clubbing. CENTRAL NERVOUS SYSTEM: Grossly nonfocal, improving weakness. IMPRESSION: 1. Diskitis of the lumbar spine, status post laminectomy. 2. Hypertension, improving, controlled. 3. Anemia of chronic disease. 4. Chronic pain. 5. Improving deconditioning. 6. Mild depression. PLAN: 1. Continue current medications. 2. Nutritional support. 3. Heart healthy diet. 4. Deep venous thrombosis and stress ulcer prophylaxis. 5. Decubitus precautions. 6. Routine laboratory values. 7. Add citalopram 20 mg daily.
[2017-06-26] MEDS: cefTRIAXone\\ROCEPHIN 2 GM in Sodium Chloride 0.9% 100 ML IVPB SCH (15:15)
[2017-06-26] MEDS: Gabapentin 400 MG CAP PO SCH ×2 (15:15→20:58)
[2017-06-26 19:44] VITALS: TEMP 98.2
[2017-06-26] MEDS: Amlodipine 10 MG TAB PO SCH (20:57)
[2017-06-26] MEDS: Enoxaparin Sodium 40 MG/0.4 ML SYRINGE SC SCH (20:58)
[2017-06-26 21:00] VITALS: BP 168/67
[2017-06-27 07:15] LABS: Vancomycin, Trough 16.2 ug/mL
[2017-06-27] MEDS ORDERED: Citalopram 20 MG TAB PO SCH (09:00)
--- NOTE | 2017-06-27 13:31 | DIS ---
DATE OF ADMISSION: 05/29/2017 DATE OF DISCHARGE: 06/27/2017 PRINCIPAL DIAGNOSIS: Angioedema, possibly related to JACKELINE inhibitors. SECONDARY DIAGNOSES: 1. Osteomyelitis and diskitis in the lumbar spine. 2. Hypertension. 3. Chronic pain. 4. Deconditioning. 5. Mild depression. COMPLICATIONS: None. ADVERSE REACTIONS: None. PROCEDURES: None. CONSULTATIONS: None. HOSPITAL COURSE: The patient was admitted on 05/29/2017 after undergoing laminectomy for diskitis a nd osteomyelitis. She was transferred here on IV antibiotics. She has been slowly improving with i ncrease in activity and decrease in pain. She was recently evaluated by Dr. Woodson and he did no t make any changes. Her blood pressures have remained significantly not under control and so multip le medications were added and adjusted. Her last medicine added was lisinopril which was about a we ek ago. She has been doing well with the lisinopril, but apparently this morning at about 3, she wa s noticed to have significantly enlarged tongue. No respiratory distress, but she was sent to the [facility] here and from here, she has been sent to the ER in [place]. Unfortunately, I was not informed of th is until I came here this afternoon to see my residents. She apparently is being admitted at the [facility] in [place]. She will continue on her IV antibiotics to finish her 6 weeks course. She will co [facility] physical therapy. DISCHARGE MEDICATIONS: Same as what she was on here which is Tylenol 650 q.4h. p.r.n., [place] 10/325 1-2 tablets q.6 hours p.r.n., Norvasc 10 mg daily, Rocephin 2 grams daily, Celexa 20 mg daily, clon idine 0.3 mg t.i.d., Lovenox 40 mg daily, Pepcid 20 mg daily, Lasix 20 mg daily, gabapentin 400 mg t .i.d., hydralazine 100 mg t.i.d., labetalol 300 mg b.i.d., lisinopril 20 mg b.i.d. which will be sto pped as this may have caused her angioedema. Oxybutynin 5 mg daily. Vancomycin 1 gram q.24 hours, Pharmacy to adjust dosing. DIET: Heart healthy diet. She will be followed by the hospitalist group there. Once she is stable and if they want to send he r back here to finished her antibiotic regimen and therapy we will be glad to accept her. For full details, please see chart.
== END 2017-06-27 03:00 | disposition short-term general hospital (02) | DRG 551 ==
LOC: NAV ACUTE 17:46
PROVIDERS: ADMIT Family Medicine; ATTEND Internal Medicine
DX: M46.46 Discitis, unspecified, lumbar region (principal); K68.12 Psoas muscle abscess; M86.9 Osteomyelitis, unspecified; G62.9 Polyneuropathy, unspecified; I10 Essential (primary) hypertension; F32.9 Major depressive disorder, single episode, unspecified; G89.29 Other chronic pain; T78.3XXA Angioneurotic edema, initial encounter; T46.4X5A Adverse effect of angiotensin-converting-enzyme inhibitors, initial encounter; E66.9 Obesity, unspecified; Z68.36 Body mass index [BMI] 36.0-36.9, adult; D64.9 Anemia, unspecified; M19.012 Primary osteoarthritis, left shoulder; M19.011 Primary osteoarthritis, right shoulder; R53.83 Other fatigue; T42.4X5A Adverse effect of benzodiazepines, initial encounter; Z85.41 Personal history of malignant neoplasm of cervix uteri; M46.56 Other infective spondylopathies, lumbar region; R32 Unspecified urinary incontinence
CPT/HCPCS: 36415; 36416; 36430; 80048; 80053; 80202; 81003; 81015; 82274; 82607; 82728; 82746; 84550; 85025; 85652; 86140; 86850; 86900; 86901; A4216; G8978-GP-CK; G8979-GP-CI; J0696; J1030; J1650; J1940; J2001; J3370; J7050; P9016

== ENCOUNTER 2017-06-27 02:57 | Emergency (ER) | payer MEDICARE, BC ==
[2017-06-27] MEDS ORDERED: methylPREDNISolone Sod Succ/PF 125 MG/2 ML VIAL ONE (03:05)
[2017-06-27] MEDS ORDERED: diphenhydrAMINE 50 MG/ML VIAL ONE (03:05)
[2017-06-27] MEDS ORDERED: Sodium Chloride 0.9% 500 ML ONE (07:13)
== END 2017-06-27 08:32 | disposition short-term general hospital (02) ==
LOC: NAV ERS 02:57
DX: T78.3XXA Angioneurotic edema, initial encounter (principal); I10 Essential (primary) hypertension; E66.9 Obesity, unspecified; Z79.899 Other long term (current) drug therapy
CPT/HCPCS: 94760; 96361; 96374; 96375; J1200; J2930; J7050

== ENCOUNTER 2017-06-29 13:30 | Inpatient (IN) | payer MEDICARE, BC ==
[2017-06-29] MEDS ORDERED: Acetaminophen 500 MG TAB PO PRN (15:56)
[2017-06-29] MEDS ORDERED: cefTRIAXone\\ROCEPHIN 2 GM VIAL IVPB SCH (16:00)
[2017-06-29] MEDS ORDERED: cloNIDine 0.3mg/24 Hour PATCH TD SCH (16:00)
[2017-06-29] MEDS ORDERED: Non-Formulary Item 1 EACH (Vancomycin/0.9 % Sod Chloride [Vancomycin 1 G/100ml-0.9% Nacl] IV SCH (16:00)
[2017-06-29] MEDS: cefTRIAXone\\ROCEPHIN 2 GM in Sodium Chloride 0.9% 100 ML IVPB SCH (19:43)
[2017-06-29] MEDS: Enoxaparin Sodium 40 MG/0.4 ML SYRINGE SC SCH (19:44)
[2017-06-29] MEDS: cloNIDine 0.2 MG TAB PO SCH (20:52)
[2017-06-29] MEDS: Vancomycin HCl 1 GM in Sodium Chloride 0.9% 250 ML 250 ML IVPB SCH (20:52)
[2017-06-29] MEDS: Gabapentin 400 MG CAP PO SCH (20:52)
[2017-06-29] MEDS: hydrALAZINE 25 MG TAB PO SCH (20:54)
[2017-06-29] MEDS: Labetalol HCl 100 MG TAB PO SCH (20:54)
[2017-06-29] MEDS: tiZANidine HCl 4 MG TAB PO SCH (20:55)
--- NOTE | 2017-06-29 23:52 | HP ---
DATE OF ADMISSION: 06/29/2017 CHIEF COMPLAINT: Diskitis and epidural abscess for long-term IV antibiotics. BRIEF HISTORY: This is a very pleasant 71-year-old overweight female who was admitted to [facility] with worsening back pain and MRI showing diskitis and possible epidural abscess. She was admitted to the hospital, underwent laminectomy at the L2-3, L3-4, L4-5, and L5-S1 with th e removal of the ventral epidural abscess at L3 and sample of L3-L4 and L4-L5 disk space as well as medial facetectomy and foraminotomy. She then was transferred here for 6 weeks of IV antibiotics af ter being evaluated by Dr. Raines. She has been doing well here except having some issues with her b lood pressure. Her medications were being adjusted and lisinopril was added in addition to amlodipi ne and increasing her hydralazine overnight. On the cloud architect of 06/27/2017, she was noticed to have significant tongue swelling and so was sent to the ER. She did not respond to IV steroids and so was sent to [facility]. She was admitted overnight with IV steroids. She improved well e nough and she has been transferred here to continue her antibiotic regimen. She denies any complain ts. She denies any breathing difficulty. She denies any swallowing issues. She does state that e cannot tolerate clonidine patch as the patch causes her to have itching. PAST MEDICAL HISTORY: 1. Hypertension, resistant. 2. Degenerative joint disease. 3. Morbid obesity. 4. Rotator cuff syndrome. 5. History of cervical cancer. 6. Significant deconditioning. PAST SURGICAL HISTORY: 1. Bilateral hip replacements. 2. Removal of uterine fibroids. 3. Tonsillectomy. 4. Bilateral cataract surgery. 5. Decompressive laminectomy with foraminotomy by Dr. Woodson in May. ALLERGIES: MORPHINE and PENICILLIN, but she can tolerate hydrocodone and Rocephin. CURRENT MEDICATIONS: She has been transferred here on the following medications: 1. Seneca 10/325 one tablet q. 6 hours p.r.n. pain. 2. Norvasc 5 mg daily. 3. Clonidine 0.3 mg at bedtime, I will change it to t.i.d. 4. Lasix 20 mg daily. 5. Neurontin 400 mg t.i.d. 6. Hydralazine 100 mg t.i.d. 7. Normodyne 300 mg b.i.d. 8. Multivitamin 1 tablet daily. 9. Vancomycin 1 gram q. 24 hours. 10. Rocephin 2 grams IV q. 24 hours. FAMILY HISTORY: Noncontributory. PSYCHOSOCIAL HISTORY: No documented tobacco, alcohol, or IV drug abuse. REVIEW OF SYSTEMS: Cardiovascular System: Denies any chest pain, shortness of breath, palpitations, paroxysmal nocturn al dyspnea, orthopnea, pedal edema. Respiratory System: Denies any chronic cough, expectoration, or pleuritic-type chest pain. Gastrointestinal System: Denies any nausea, vomiting, diarrhea, constipation, hematemesis, melena, hematochezia. Genitourinary System: Denies any frequency, urgency, dysuria, or hematuria. Central Nervous System: Generalized weakness. SHEENT: No difficulty with speech, vision, hearing, or swallowing. PHYSICAL EXAMINATION: GENERAL: Very pleasant 71-year-old overweight -[place] female who is resting comfortably in no acute distress. She responds appropriately to questions. She is alert, awake, and oriented x3. VITAL SIGNS: She is afebrile. Heart rate is 70, respirations 16, oxygen saturation 97%, blood pres sure is 166/78. HEENT: Normocephalic, atraumatic. Pupils are equally reactive to light and accommodation. NECK: No JVD, thyromegaly, cervical adenopathy, throat exudates or carotid bruits. CARDIOVASCULAR SYSTEM: S1, S2, plus rate and rhythm regular. RESPIRATORY SYSTEM: Normal vesicular breath sounds heard in all lung araya. ABDOMEN: Soft, nontender, bowel sounds heard in all quadrants, obese. EXTREMITIES: Without cyanosis or clubbing. Trace edema. Peripheral pulses are palpable. CENTRAL NERVOUS SYSTEM: Grossly nonfocal. IMPRESSION: 1. Diskitis and epidural abscess, status post laminectomy and foraminotomy, now for long-term IV an tibiotics. She is supposed to continue vancomycin and Rocephin until 07/07/2017. 2. Hypertension, not well controlled. PLAN: 1. We will switch her back to clonidine 0.3 mg, but we will change it to t.i.d. 2. Heart-healthy diet. 3. DVT and stress ulcer prophylaxis. 4. Decubitus precautions. 5. Routine laboratory values. 6. Weekly CBC, CRP, and sed rate. 7. Consult PT and OT evaluate and treat. 8. Discussed with the patient in detail, lot of questions answered. No family at the bedside.
[2017-06-30 07:03] LABS: #Basophils 0.1 thou/uL (0.0-0.2); #Eosinphils 0.1 thou/uL (0.0-0.7); #Lymphocytes 1.9 thou/uL (1.20-3.40); #Monocytes 0.6 thou/uL (0.11-0.59); #Neutrophils 5.9 thou/uL (1.40-6.50); %Basophils 1.5 % (0.0-1.0); %Eosinophils 1.7 % (0.0-10.0); %Lymphocytes 21.7 % (21.0-51.0); %Monocytes 6.6 % (0.0-10.0); %Neutrophils 68.4 % (42.0-75.0); Hemoglobin 10.7 g/dL (12.0-16.0); Mean Corpuscular HGB CONC 30.2 g/dL (32.0-36.0); Mean Corpuscular Hemoglobin 29.3 pg (27.0-31.0); Mean Corpuscular Volume 97.1 fl (81.0-99.0); Mean Platelet Volume 6.3 fL (7.4-10.4); Platelet Count 276 thou/uL (130-400); RBC Distribution Width 15.6 % (11.5-14.5); Red Blood Cell (RBC) Count 3.66 mill/uL (4.20-5.40); White Blood Cell (WBC) Count 8.6 thou/uL (4.8-10.8)
[2017-06-30 07:09] LABS: Anion Gap 13 mmol/L (10-20); BUN (Urea Nitrogen) 24 mg/dL (9.8-20.1); Calc. Creatinine Clearance 71 mL/min (70-130); Calcium 9.3 mg/dL (7.8-10.44); Carbon Dioxide 27 mmol/L (23-31); Chloride 104 mmol/L (98-107); Estimated GFR-MDRD 52; Glucose 172 mg/dL (80-115); Potassium 3.6 mmol/L (3.5-5.1); Sodium 140 mmol/L (136-145)
--- NOTE | 2017-06-30 10:58 | PRG ---
DATE OF SERVICE: 06/30/2017 SUBJECTIVE: Ms. Zuñiga is complaining of some diarrhea. She denies any fever or chills. Denies any chest pain or shortness of breath. She is feeling well otherwise. OBJECTIVE: VITAL SIGNS: She is afebrile, heart rate is 72, respirations 18, oxygen saturation is 94%, blood pr essure 170/74. CARDIOVASCULAR: S1, S2 plus. RESPIRATORY: Normal vesicular breath sounds. ABDOMEN: Soft, nontender, bowel sounds heard in all quadrants. EXTREMITIES: Without cyanosis or clubbing. LABORATORY VALUES: Sodium 140, potassium 3.6, BUN and creatinine are 24 and 1.24. White count is 8 .6, H\T\H is 10.7 and 35.5. IMPRESSION: 1. Diskitis and epidural abscess, status post laminectomy here for long-term IV antibiotics. 2. Resolved angioedema. 3. Recent onset of diarrhea. We will check stool for C. diff. 4. Resistant hypertension. 5. Chronic pain. 6. Deconditioning. 7. Chronic rotator cuff tendinitis. PLAN: 1. Stool for Clostridium difficile. 2. Incision care. 3. Weekly CBC, CRP, sed rate. 4. Continue vancomycin and Rocephin until 07/07. 5. Physical therapy. 6. Deep venous thrombosis and stress ulcer prophylaxis. 7. Decubitus precautions. 8. Monitor blood pressure and adjust medications. 9. No family at the bedside.
[2017-06-30] MEDS: Gabapentin 400 MG CAP PO SCH ×3 (11:10→20:26)
[2017-06-30] MEDS: Multivitamin W/ Minerals 1 TAB PO SCH (11:10)
[2017-06-30] MEDS: Stress 600 With Zinc 1 TAB PO SCH (11:10)
[2017-06-30] MEDS: Furosemide 20 MG TAB PO SCH (11:10)
[2017-06-30] MEDS: tiZANidine HCl 4 MG TAB PO SCH ×3 (11:10→20:26)
[2017-06-30] MEDS: cloNIDine 0.2 MG TAB PO SCH ×3 (11:10→20:25)
[2017-06-30] MEDS: Amlodipine 5 MG TAB PO SCH (11:11)
[2017-06-30] MEDS: Labetalol HCl 100 MG TAB PO SCH ×2 (11:11→20:26)
[2017-06-30] MEDS: hydrALAZINE 25 MG TAB PO SCH ×3 (11:11→20:25)
[2017-06-30] MEDS: cefTRIAXone\\ROCEPHIN 2 GM in Sodium Chloride 0.9% 100 ML IVPB SCH (20:20)
[2017-06-30] MEDS: Enoxaparin Sodium 40 MG/0.4 ML SYRINGE SC SCH (20:26)
[2017-06-30] MEDS: Sodium Chloride 0.9% 10 ML ONE (20:27)
[2017-06-30 20:28] LABS: Vancomycin, Trough 14.2 ug/mL
[2017-06-30] MEDS: Vancomycin HCl 1 GM in Sodium Chloride 0.9% 250 ML 250 ML IVPB SCH (21:35)
[2017-07-01] MEDS: Labetalol HCl 100 MG TAB PO SCH ×2 (09:17→21:03)
[2017-07-01] MEDS: Gabapentin 400 MG CAP PO SCH ×3 (09:17→21:15)
[2017-07-01] MEDS: Stress 600 With Zinc 1 TAB PO SCH (09:17)
[2017-07-01] MEDS: Multivitamin W/ Minerals 1 TAB PO SCH (09:17)
[2017-07-01] MEDS: cloNIDine 0.2 MG TAB PO SCH ×3 (09:18→21:02)
[2017-07-01] MEDS: hydrALAZINE 25 MG TAB PO SCH ×3 (09:18→21:02)
[2017-07-01] MEDS: Furosemide 20 MG TAB PO SCH (09:18)
[2017-07-01] MEDS: Amlodipine 5 MG TAB PO SCH (09:20)
[2017-07-01] MEDS: tiZANidine HCl 4 MG TAB PO SCH ×3 (09:20→21:03)
--- NOTE | 2017-07-01 13:30 | PRG ---
DATE OF SERVICE: 07/01/2017 SUBJECTIVE: Ms. Zuñiga is doing well, continues to have some diarrhea. Stool apparently was sent this morning for C. diff. No fever or chills. OBJECTIVE: VITAL SIGNS: She is afebrile, heart rate is 72, respirations 20, oxygen saturation 97%, blood press ure 177/82. CARDIOVASCULAR: S1, S2 plus. RESPIRATORY: Normal vesicular breath sounds. ABDOMEN: Soft, obese, nontender, bowel sounds heard in all quadrants. EXTREMITIES: Without cyanosis or clubbing. CENTRAL NERVOUS SYSTEM: Grossly nonfocal. IMPRESSION: 1. Diskitis and epidural abscess, status post lumbar laminectomy for long-term IV antibiotics. 2. Resistant hypertension, slow improvement. 3. Diarrhea. 4. Chronic rotator cuff tear. 5. Deconditioning. 6. Obesity. PLAN: 1. Continue current medications. 2. Await stool for C. diff. 3. Add Florastor 250 mg b.i.d. 4. Heart healthy diet. 5. Continue to monitor blood pressure and adjust medication. 6. Watch for any recurrence of angioedema. 7. Physical therapy. 8. DVT and stress ulcer prophylaxis. 9. Decubitus precautions. 10. No family at the bedside.
[2017-07-01] MEDS: cefTRIAXone\\ROCEPHIN 2 GM in Sodium Chloride 0.9% 100 ML IVPB SCH (20:57)
[2017-07-01] MEDS: Sodium Chloride 0.9% 10 ML ONE (21:01)
[2017-07-01] MEDS: Saccharomyces boulardii 250 MG CAP PO SCH (21:02)
[2017-07-01] MEDS: Vancomycin HCl 1 GM in Sodium Chloride 0.9% 250 ML 250 ML IVPB SCH (21:04)
[2017-07-01] MEDS: Enoxaparin Sodium 40 MG/0.4 ML SYRINGE SC SCH (21:15)
[2017-07-02] MEDS: Multivitamin W/ Minerals 1 TAB PO SCH (08:55)
[2017-07-02] MEDS: Gabapentin 400 MG CAP PO SCH ×3 (08:55→20:35)
[2017-07-02] MEDS: tiZANidine HCl 4 MG TAB PO SCH ×3 (08:55→20:36)
[2017-07-02] MEDS: Stress 600 With Zinc 1 TAB PO SCH (08:55)
[2017-07-02] MEDS: Saccharomyces boulardii 250 MG CAP PO SCH ×2 (08:55→20:34)
[2017-07-02] MEDS: Amlodipine 5 MG TAB PO SCH (08:56)
[2017-07-02] MEDS: hydrALAZINE 25 MG TAB PO SCH ×3 (08:56→20:34)
[2017-07-02] MEDS: Furosemide 20 MG TAB PO SCH (08:56)
[2017-07-02] MEDS: Labetalol HCl 100 MG TAB PO SCH ×2 (08:57→20:35)
[2017-07-02] MEDS: cloNIDine 0.2 MG TAB PO SCH ×3 (08:57→20:35)
--- NOTE | 2017-07-02 13:31 | PRG ---
DATE OF SERVICE: 07/02/2017 SUBJECTIVE: Ms. Zuñiga is doing well. Denies any complaints. Her diarrhea has resolved. She is tolerating therapy. Pain is well controlled. The Florastor seems to be helping. Her C. diff has come back antigen positive and toxin negative, so we will try to do the repeat in another 24 hours. No fever or chills. OBJECTIVE: VITAL SIGNS: She is afebrile, heart rate is 81, respirations 18, blood pressure 147/67. CARDIOVASCULAR: S1, S2 plus. RESPIRATORY: Normal vesicular breath sounds. ABDOMEN: Soft, obese, nontender, bowel sounds heard in all quadrants. EXTREMITIES: Without cyanosis or clubbing. CENTRAL NERVOUS SYSTEM: Grossly nonfocal. IMPRESSION: 1. Epidural abscess and diskitis, status post laminectomy. 2. Hypertension, improved. 3. Diarrhea, resolved. 4. Chronic rotator cuff pain. 5. Obesity. 6. Improving deconditioning. 7. Resolved diarrhea with antigen positive and toxin negative. PLAN: 1. Recheck C. difficile. 2. Continue IV antibiotics. 3. Weekly CBC, CRP, sed rate. 4. Continue Florastor. 5. DVT and stress ulcer prophylaxis. 6. Decubitus precautions. 7. Monitor blood pressure. 8. Continue physical therapy. 9. Discussed with patient in detail and all questions answered.
[2017-07-02] MEDS ORDERED: Sodium Chloride 0.9% 10 ML ONE (20:28)
[2017-07-02] MEDS: cefTRIAXone\\ROCEPHIN 2 GM in Sodium Chloride 0.9% 100 ML IVPB SCH (20:33)
[2017-07-02] MEDS: Vancomycin HCl 1 GM in Sodium Chloride 0.9% 250 ML 250 ML IVPB SCH (20:33)
[2017-07-02] MEDS: Enoxaparin Sodium 40 MG/0.4 ML SYRINGE SC SCH (20:34)
[2017-07-03] MEDS: hydrALAZINE 25 MG TAB PO SCH ×3 (08:42→20:22)
[2017-07-03] MEDS: Labetalol HCl 100 MG TAB PO SCH ×2 (08:42→20:23)
[2017-07-03] MEDS: Saccharomyces boulardii 250 MG CAP PO SCH ×2 (08:42→20:25)
[2017-07-03] MEDS: cloNIDine 0.2 MG TAB PO SCH ×3 (08:43→20:23)
[2017-07-03] MEDS: tiZANidine HCl 4 MG TAB PO SCH ×3 (08:43→20:23)
[2017-07-03] MEDS: Furosemide 20 MG TAB PO SCH (08:43)
[2017-07-03] MEDS: Amlodipine 5 MG TAB PO SCH (08:43)
[2017-07-03] MEDS: Stress 600 With Zinc 1 TAB PO SCH (08:43)
[2017-07-03] MEDS: Gabapentin 400 MG CAP PO SCH ×3 (08:43→20:22)
[2017-07-03] MEDS: Multivitamin W/ Minerals 1 TAB PO SCH (08:43)
[2017-07-03] MEDS ORDERED: VANCOMYCIN IVPB PRN (09:47)
--- NOTE | 2017-07-03 15:51 | PRG ---
DATE OF SERVICE: 07/03/2017 SUBJECTIVE: Ms. Zuñiga is doing well. Denies any complaints, resting comfortably, tolerating her therapy. OBJECTIVE: VITAL SIGNS: She is afebrile, heart rate is 83, respirations 18, oxygen saturation is 98% and blood pressure 147/67. CARDIOVASCULAR SYSTEM: S1, S2 plus. RESPIRATORY SYSTEM: Normal vesicular breath sounds. ABDOMEN: Soft, nontender, bowel sounds heard in all quadrants. EXTREMITIES: Without cyanosis or clubbing. Peripheral pulses are palpable. CENTRAL NERVOUS SYSTEM: Grossly nonfocal. IMPRESSION: 1. Diskitis and epidural abscess, status post laminectomy. 2. Hypertension, improving. 3. Obesity. 4. Chronic rotator cuff pain. 5. Improving deconditioning. PLAN: 1. Continue current medications. 2. Weekly CBC, CRP, sed rate. 3. DVT and stress ulcer prophylaxis. 4. Decubitus precautions. 5. Continue IV antibiotics. 6. Physical therapy. 7. Discussed with the patient in detail and all questions answered. As stated, she has had no furt her diarrhea. Repeat Clostridium difficile is pending.
[2017-07-03] MEDS: cefTRIAXone\\ROCEPHIN 2 GM in Sodium Chloride 0.9% 100 ML IVPB SCH (20:18)
[2017-07-03] MEDS: Enoxaparin Sodium 40 MG/0.4 ML SYRINGE SC SCH (20:22)
[2017-07-03] MEDS: Vancomycin HCl 1 GM in Sodium Chloride 0.9% 250 ML 250 ML IVPB SCH (20:26)
[2017-07-04 05:21] LABS: #Basophils 0.1 thou/uL (0.0-0.2); #Eosinphils 0.2 thou/uL (0.0-0.7); #Lymphocytes 1.6 thou/uL (1.20-3.40); #Monocytes 0.6 thou/uL (0.11-0.59); %Basophils 0.8 % (0.0-1.0); %Eosinophils 2.3 % (0.0-10.0); %Monocytes 6.9 % (0.0-10.0); Mean Corpuscular Hemoglobin 28.8 pg (27.0-31.0); Mean Corpuscular Volume 96.2 fl (81.0-99.0); Mean Platelet Volume 6.7 fL (7.4-10.4); Platelet Count 251 thou/uL (130-400); RBC Distribution Width 15.6 % (11.5-14.5); Red Blood Cell (RBC) Count 3.47 mill/uL (4.20-5.40); White Blood Cell (WBC) Count 8.5 thou/uL (4.8-10.8)
[2017-07-04 05:42] LABS: ALT (SGPT) 32 U/L (8-55); AST (SGOT) 13 U/L (5-34); Albumin 3.1 g/dL (3.4-4.8); Alkaline Phosphatase 70 U/L (40-150); Anion Gap 12 mmol/L (10-20); BUN (Urea Nitrogen) 21 mg/dL (9.8-20.1); Bilirubin, Total 0.3 mg/dL (0.2-1.2); CRP (Inflammatory) 8.56 mg/dL (= or < 0.5); Calc. Creatinine Clearance 71 mL/min (70-130); Calcium 9.1 mg/dL (7.8-10.44); Carbon Dioxide 27 mmol/L (23-31); Chloride 103 mmol/L (98-107); Estimated GFR-MDRD 54; Globulin 3.2 g/dL (2.4-3.5); Glucose 193 mg/dL (80-115); Potassium 4.2 mmol/L (3.5-5.1); Protein, Total 6.3 g/dL (6.0-8.3); Sodium 138 mmol/L (136-145)
[2017-07-04] MEDS: cloNIDine 0.2 MG TAB PO SCH ×3 (08:03→21:50)
[2017-07-04] MEDS: hydrALAZINE 25 MG TAB PO SCH ×3 (08:04→21:51)
[2017-07-04] MEDS: Multivitamin W/ Minerals 1 TAB PO SCH (08:04)
[2017-07-04] MEDS: Gabapentin 400 MG CAP PO SCH ×3 (08:05→21:52)
[2017-07-04] MEDS: Amlodipine 5 MG TAB PO SCH (08:05)
[2017-07-04] MEDS: Stress 600 With Zinc 1 TAB PO SCH (08:05)
[2017-07-04] MEDS: Labetalol HCl 100 MG TAB PO SCH ×2 (08:05→21:51)
[2017-07-04] MEDS: Saccharomyces boulardii 250 MG CAP PO SCH ×2 (08:05→21:50)
[2017-07-04] MEDS: Furosemide 20 MG TAB PO SCH (08:06)
[2017-07-04] MEDS: tiZANidine HCl 4 MG TAB PO SCH ×3 (08:06→21:52)
[2017-07-04] MEDS: HYDROcodone/Acetaminophen 10/325 mg Tablet PO PRN (08:07)
--- NOTE | 2017-07-04 13:23 | PRG ---
DATE OF SERVICE: 07/04/2017 SUBJECTIVE: Ms. Zuñiga is doing well. Denies any complaints, resting comfortably. Diarrhea has resolved. No fever or chills. No chest pain or shortness of breath. OBJECTIVE: VITAL SIGNS: She is afebrile, heart rate is 73, respirations 18, oxygen saturation 95%, and blood p ressure is 165/74. CARDIOVASCULAR SYSTEM: S1, S2 plus. RESPIRATORY SYSTEM: Normal vesicular breath sounds. ABDOMEN: Soft, obese, nontender, bowel sounds heard in all quadrants. EXTREMITIES: Without cyanosis or clubbing. CENTRAL NERVOUS SYSTEM: Improving deconditioning. LABORATORY VALUES: Sodium 138, potassium 4.2, BUN and creatinine 21 and 1.2. CRP is 8.56. Vancomy jonathan trough is 14.2. White count is 8.5, H and H is 10 and 33.4. Sed rate is 48. IMPRESSION: 1. Antigen positive and toxin negative Clostridium difficile with resolution of diarrhea and formed stools. She is asymptomatic. We will not do any further testing how treat this as clinically, she does not have any evidence for active Clostridium difficile infection. 2. Epidural abscess and diskitis, status post laminectomy requiring long-term IV antibiotics. We w ill make sure pharmacy adjusting her vancomycin dosing. 3. Hypertension, improving. 4. Deconditioning, slow improvement. 5. Chronic rotator cuff pain. PLAN: 1. Continue current medications. 2. Low sodium diet. 3. Deep venous thrombosis and stress ulcer prophylaxis. 4. Decubitus precautions. 5. Monitor blood pressure. 6. Weekly CBC, CRP, sed rate. 7. Antibiotics until 07/07/2017.
[2017-07-04] MEDS ORDERED: VANCOMYCIN IVPB PRN (20:31)
[2017-07-04] MEDS: cefTRIAXone\\ROCEPHIN 2 GM in Sodium Chloride 0.9% 100 ML IVPB SCH (20:42)
[2017-07-04 20:58] LABS: Vancomycin, Trough 14.8 ug/mL
[2017-07-04] MEDS: Enoxaparin Sodium 40 MG/0.4 ML SYRINGE SC SCH (21:52)
[2017-07-04] MEDS: Vancomycin HCl 1 GM in Sodium Chloride 0.9% 250 ML 250 ML IVPB SCH (21:53)
[2017-07-04] MEDS: Vancomycin HCl 500 MG in Sodium Chloride 0.9% 100 ML IVPB SCH (21:54)
[2017-07-05] MEDS: Amlodipine 5 MG TAB PO SCH (08:06)
[2017-07-05] MEDS: cloNIDine 0.2 MG TAB PO SCH ×3 (08:07→22:00)
[2017-07-05] MEDS: Gabapentin 400 MG CAP PO SCH ×3 (08:07→21:58)
[2017-07-05] MEDS: hydrALAZINE 25 MG TAB PO SCH ×3 (08:07→22:01)
[2017-07-05] MEDS: Furosemide 20 MG TAB PO SCH (08:07)
[2017-07-05] MEDS: Multivitamin W/ Minerals 1 TAB PO SCH (08:08)
[2017-07-05] MEDS: Saccharomyces boulardii 250 MG CAP PO SCH ×2 (08:08→21:45)
[2017-07-05] MEDS: Labetalol HCl 100 MG TAB PO SCH ×2 (08:08→22:01)
[2017-07-05] MEDS: Stress 600 With Zinc 1 TAB PO SCH (08:09)
[2017-07-05] MEDS: tiZANidine HCl 4 MG TAB PO SCH ×3 (08:09→22:01)
[2017-07-05] MEDS: HYDROcodone/Acetaminophen 10/325 mg Tablet PO PRN (08:09)
--- NOTE | 2017-07-05 09:02 | PRG ---
DATE OF SERVICE: 07/05/2017 SUBJECTIVE: Ms. Zuñiga is doing well. Denies any complaints up into her chest. Just complaining of some minimal right leg pain, no fever or chills, no further diarrhea. OBJECTIVE: VITAL SIGNS: She is afebrile, heart rate is 84, respirations are 18, blood pressure is 138/68, oxyg en saturation is 96%. CARDIOVASCULAR SYSTEM: S1, S2 plus. RESPIRATORY SYSTEM: Normal vesicular breath sounds. ABDOMEN: Soft, nontender, bowel sounds heard in all quadrants. EXTREMITIES: Without cyanosis or clubbing. Sed rate is down to 48. IMPRESSION: 1. Epidural abscess and diskitis, status post laminectomy. 2. Improving hypertension. 3. Chronic rotator cuff pain. 4. Improving deconditioning. 5. Resolved diarrhea. PLAN: 1. Continue current medications. 2. Finish IV antibiotics on 07/07/2017. 3. Await therapy opinion as to when she can be discharged home. 4. Continue DVT and stress ulcer prophylaxis. 5. Heart healthy diet. 6. Weekly CBC, CRP, sed rate. 7. Monitor for any recurrence of diarrhea. She is antigen positive and toxin negative twice, but h er stools are not formed. She is completely asymptomatic. We will not treat her.
[2017-07-05] MEDS: Enoxaparin Sodium 40 MG/0.4 ML SYRINGE SC SCH (21:44)
[2017-07-05] MEDS: cefTRIAXone\\ROCEPHIN 2 GM in Sodium Chloride 0.9% 100 ML IVPB SCH (21:53)
[2017-07-05] MEDS: Vancomycin HCl 1 GM in Sodium Chloride 0.9% 250 ML 250 ML IVPB SCH (21:53)
[2017-07-05] MEDS: Vancomycin HCl 500 MG in Sodium Chloride 0.9% 100 ML IVPB SCH (22:02)
[2017-07-06] MEDS ORDERED: Sodium Chloride 0.9% 10 ML ONE (08:29)
[2017-07-06] MEDS: Amlodipine 5 MG TAB PO SCH (09:15)
[2017-07-06] MEDS: cloNIDine 0.2 MG TAB PO SCH ×3 (09:16→20:36)
[2017-07-06] MEDS: Labetalol HCl 100 MG TAB PO SCH ×2 (09:17→20:36)
[2017-07-06] MEDS: Gabapentin 400 MG CAP PO SCH ×3 (09:17→20:36)
[2017-07-06] MEDS: hydrALAZINE 25 MG TAB PO SCH ×3 (09:17→20:36)
[2017-07-06] MEDS: Furosemide 20 MG TAB PO SCH (09:17)
[2017-07-06] MEDS: Stress 600 With Zinc 1 TAB PO SCH (09:18)
[2017-07-06] MEDS: Multivitamin W/ Minerals 1 TAB PO SCH (09:18)
[2017-07-06] MEDS: Saccharomyces boulardii 250 MG CAP PO SCH ×2 (09:18→20:36)
[2017-07-06] MEDS: tiZANidine HCl 4 MG TAB PO SCH ×3 (09:19→20:37)
--- NOTE | 2017-07-06 09:54 | PRG ---
DATE OF SERVICE: 07/06/2017 SUBJECTIVE: Ms. Zuñiga is doing well. Denies any complaints. She is resting in bed. She states that she has been refusing Lovenox and she has been getting up and moving. She is aware of the ris k. She is tolerating her antibiotics, last day is tomorrow. OBJECTIVE: VITAL SIGNS: She is afebrile, heart rate is 71, respirations 18, oxygen saturation is 98%, blood pr essure this morning was 183/79. Last evening, it was 138/70. CARDIOVASCULAR: S1, S2 plus. RESPIRATORY: Normal vesicular breath sounds. ABDOMEN: Soft, nontender, obese. Bowel sounds heard in all quadrants. EXTREMITIES: Without cyanosis or clubbing. Improving deconditioning. IMPRESSION: 1. Epidural abscess and diskitis, status post laminectomy. 2. Fluctuating blood pressure. 3. Chronic rotator cuff pain. 4. Improving deconditioning. 5. Anemia of chronic disease. PLAN: 1. Continue current medications. 2. Heart healthy diet. 3. Finish antibiotics tomorrow. 4. Continue physical therapy. 5. Patient refusing Lovenox and aware of the risks. 6. Decubitus precautions. 7. Weekly CBC, CRP, sed rate. 8. Await therapies. Indication as to when patient has reached improvement enough from her decondit ioning for safe discharge to home.
[2017-07-06 20:35] LABS: Vancomycin, Trough 18.6 ug/mL
[2017-07-06] MEDS: cefTRIAXone\\ROCEPHIN 2 GM in Sodium Chloride 0.9% 100 ML IVPB SCH (20:35)
[2017-07-06] MEDS: Enoxaparin Sodium 40 MG/0.4 ML SYRINGE SC SCH (20:37)
[2017-07-06] MEDS: Vancomycin HCl 500 MG in Sodium Chloride 0.9% 100 ML IVPB SCH (21:31)
[2017-07-06] MEDS: Vancomycin HCl 1 GM in Sodium Chloride 0.9% 250 ML 250 ML IVPB SCH (21:31)
[2017-07-07] MEDS: hydrALAZINE 25 MG TAB PO SCH ×3 (08:12→20:15)
[2017-07-07] MEDS: Labetalol HCl 100 MG TAB PO SCH ×2 (08:12→20:14)
[2017-07-07] MEDS: Stress 600 With Zinc 1 TAB PO SCH (08:12)
[2017-07-07] MEDS: cloNIDine 0.2 MG TAB PO SCH ×3 (08:13→20:15)
[2017-07-07] MEDS: Saccharomyces boulardii 250 MG CAP PO SCH ×2 (08:13→20:14)
[2017-07-07] MEDS: Gabapentin 400 MG CAP PO SCH ×3 (08:13→20:15)
[2017-07-07] MEDS: Furosemide 20 MG TAB PO SCH (08:13)
[2017-07-07] MEDS: Multivitamin W/ Minerals 1 TAB PO SCH (08:13)
[2017-07-07] MEDS: tiZANidine HCl 4 MG TAB PO SCH ×3 (08:14→20:15)
[2017-07-07] MEDS: Amlodipine 5 MG TAB PO SCH (08:14)
--- NOTE | 2017-07-07 15:57 | PRG ---
DATE OF SERVICE: 07/12/2017 SUBJECTIVE: Ms. Zuñiga is doing well. Denies any complaints, resting comfortably, tolerating her therapy. OBJECTIVE: VITAL SIGNS: She is afebrile, heart rate 80, respirations 18, blood pressure is 147/66. CARDIOVASCULAR SYSTEM: S1, S2 plus. RESPIRATORY SYSTEM: Normal vesicular breath sounds. ABDOMEN: Soft, obese, nontender, bowel sounds heard in all quadrants. EXTREMITIES: Without cyanosis or clubbing. IMPRESSION: 1. Diskitis and epidural abscess, status post laminectomy. 2. Hypertension, much improved. 3. Chronic rotator cuff pain. 4. Improving deconditioning. 5. Anemia of chronic disease. PLAN: 1. Continue current medications. 2. Finish antibiotics after today. 3. Await physical therapy's opinion as to when patient is stable to be discharged home. 4. Routine laboratory values. 5. Low sodium diet. 6. DVT and stress ulcer prophylaxis.
[2017-07-07] MEDS: cefTRIAXone\\ROCEPHIN 2 GM in Sodium Chloride 0.9% 100 ML IVPB SCH (20:14)
[2017-07-07] MEDS: Enoxaparin Sodium 40 MG/0.4 ML SYRINGE SC SCH (20:16)
[2017-07-07] MEDS: Vancomycin HCl 1 GM in Sodium Chloride 0.9% 250 ML 250 ML IVPB SCH (21:59)
[2017-07-07] MEDS: Vancomycin HCl 500 MG in Sodium Chloride 0.9% 100 ML IVPB SCH (21:59)
[2017-07-08] MEDS: hydrALAZINE 25 MG TAB PO SCH ×3 (08:33→21:30)
[2017-07-08] MEDS: Labetalol HCl 100 MG TAB PO SCH ×2 (08:33→21:31)
[2017-07-08] MEDS: tiZANidine HCl 4 MG TAB PO SCH ×3 (08:33→21:32)
[2017-07-08] MEDS: cloNIDine 0.2 MG TAB PO SCH ×3 (08:33→21:36)
[2017-07-08] MEDS: Multivitamin W/ Minerals 1 TAB PO SCH (08:34)
[2017-07-08] MEDS: Gabapentin 400 MG CAP PO SCH ×3 (08:34→21:31)
[2017-07-08] MEDS: Saccharomyces boulardii 250 MG CAP PO SCH ×2 (08:34→21:30)
[2017-07-08] MEDS: Amlodipine 5 MG TAB PO SCH (08:34)
[2017-07-08] MEDS: Furosemide 20 MG TAB PO SCH (08:34)
[2017-07-08] MEDS: Stress 600 With Zinc 1 TAB PO SCH (08:34)
--- NOTE | 2017-07-08 14:01 | PRG ---
DATE OF SERVICE: 07/08/2017 SUBJECTIVE: Ms. Zuñiga is doing well. Denies any complaints, resting comfortably, tolerating her medications. Her antibiotics were discontinued after her last dose yesterday. Awaiting therapy to let us know when she is stable and safe to go home. OBJECTIVE: VITAL SIGNS: She is afebrile, heart rate 74, respirations are 18, blood pressure 150/79. CARDIOVASCULAR: S1, S2 plus. RESPIRATORY: Normal vesicular breath sounds. ABDOMEN: Soft, nontender, obese. Bowel sounds heard in all quadrants. EXTREMITIES: Without cyanosis or clubbing. IMPRESSION: 1. Hypertension. 2. Epidural abscess status post laminectomy. 3. Chronic rotator cuff pain. 4. Improving deconditioning. PLAN: 1. Continue current medications. 2. Heart healthy diet. 3. Nutritional support. 4. DVT and stress ulcer prophylaxis. 5. Decubitus precautions. She has been refusing Lovenox and she is aware of the risks. 6. Physical therapy. 7. Await therapy instructions and discharge planning.
[2017-07-08] MEDS: Enoxaparin Sodium 40 MG/0.4 ML SYRINGE SC SCH (21:32)
[2017-07-09] MEDS: Saccharomyces boulardii 250 MG CAP PO SCH ×2 (08:29→21:07)
[2017-07-09] MEDS: hydrALAZINE 25 MG TAB PO SCH ×3 (08:29→21:07)
[2017-07-09] MEDS: Gabapentin 400 MG CAP PO SCH ×3 (08:29→21:07)
[2017-07-09] MEDS: Multivitamin W/ Minerals 1 TAB PO SCH (08:30)
[2017-07-09] MEDS: Labetalol HCl 100 MG TAB PO SCH ×2 (08:30→21:08)
[2017-07-09] MEDS: tiZANidine HCl 4 MG TAB PO SCH ×3 (08:30→21:08)
[2017-07-09] MEDS: Furosemide 20 MG TAB PO SCH (08:30)
[2017-07-09] MEDS: Amlodipine 5 MG TAB PO SCH (08:30)
[2017-07-09] MEDS: Stress 600 With Zinc 1 TAB PO SCH (08:31)
[2017-07-09] MEDS: cloNIDine 0.2 MG TAB PO SCH ×3 (08:31→21:07)
--- NOTE | 2017-07-09 17:31 | PRG ---
DATE OF SERVICE: 07/09/2017 SUBJECTIVE: Ms. Zuñiga is doing well. Denies any complaints, resting comfortably. Up in her peter ir. She is done with all her antibiotics. OBJECTIVE: VITAL SIGNS: She is afebrile, heart rate is 78, respirations 18, and blood pressure is 178/77. CARDIOVASCULAR SYSTEM: S1, S2 plus. RESPIRATORY SYSTEM: Normal vesicular breath sounds. ABDOMEN: Soft, nontender, bowel sounds heard in all quadrants. EXTREMITIES: Without cyanosis or clubbing. IMPRESSION: 1. Epidural abscess and diskitis, status post laminectomy. She is done with 6 weeks of her antibio tics. 2. Hypertension, fluctuating control. 3. Chronic rotator cuff pain. 4. Improving deconditioning. PLAN: 1. Continue current physical therapy. 2. Nutritional support. 3. Low sodium diet. 4. Adjust blood pressure medications. 5. Routine laboratory values. 6. DVT and stress ulcer prophylaxis. 7. No family at the bedside. 8. Await physical therapy is the recommendation as to when patient is stable to go home.
[2017-07-09] MEDS: Enoxaparin Sodium 40 MG/0.4 ML SYRINGE SC SCH (21:09)
[2017-07-10] MEDS: tiZANidine HCl 4 MG TAB PO SCH ×3 (08:40→20:52)
[2017-07-10] MEDS: Multivitamin W/ Minerals 1 TAB PO SCH (08:40)
[2017-07-10] MEDS: Gabapentin 400 MG CAP PO SCH ×3 (08:41→20:50)
[2017-07-10] MEDS: Saccharomyces boulardii 250 MG CAP PO SCH ×2 (08:41→20:49)
[2017-07-10] MEDS: Stress 600 With Zinc 1 TAB PO SCH (08:41)
[2017-07-10] MEDS: Amlodipine 5 MG TAB PO SCH (08:41)
[2017-07-10] MEDS: Furosemide 20 MG TAB PO SCH (08:41)
[2017-07-10] MEDS: Labetalol HCl 100 MG TAB PO SCH ×2 (08:42→20:52)
[2017-07-10] MEDS: cloNIDine 0.2 MG TAB PO SCH ×3 (08:42→20:50)
[2017-07-10] MEDS: hydrALAZINE 25 MG TAB PO SCH ×3 (08:43→20:49)
--- NOTE | 2017-07-10 13:26 | PRG ---
DATE OF SERVICE: 07/10/2017 SUBJECTIVE: Ms. Zuñiga is doing well. Denies any complaints, resting comfortably. OBJECTIVE: VITAL SIGNS: She is afebrile, heart rate is 80, respirations are 20, and blood pressure 143/72, oxyg en saturation is 95%. CARDIOVASCULAR SYSTEM: S1, S2 plus. RESPIRATORY SYSTEM: Normal vesicular breath sounds. ABDOMEN: Soft, nontender, bowel sounds heard in all quadrants. EXTREMITIES: Without cyanosis or clubbing. CENTRAL NERVOUS SYSTEM: Improving deconditioning. IMPRESSION: 1. Epidural abscess and diskitis, status post laminectomy and completed 6 weeks of IV antibiotics. 2. Hypertension, improving. 3. Chronic rotator cuff pain. 4. Improving deconditioning. PLAN: 1. Continue current medications. 2. Nutritional support. 3. Physical therapy. 4. Recheck CBC, CRP tomorrow. 5. Discharge once okay with therapy. Discussed with the patient in detail and all questions answere d.
[2017-07-10] MEDS: Enoxaparin Sodium 40 MG/0.4 ML SYRINGE SC SCH (20:53)
[2017-07-11 06:05] LABS: #Basophils 0.1 thou/uL (0.0-0.2); #Eosinphils 0.2 thou/uL (0.0-0.7); #Lymphocytes 1.9 thou/uL (1.20-3.40); #Monocytes 0.4 thou/uL (0.11-0.59); #Neutrophils 5.3 thou/uL (1.40-6.50); %Basophils 1.6 % (0.0-1.0); %Lymphocytes 23.5 % (21.0-51.0); Hemoglobin 9.7 g/dL (12.0-16.0); Mean Corpuscular HGB CONC 30.4 g/dL (32.0-36.0); Mean Corpuscular Volume 95.4 fl (81.0-99.0); Mean Platelet Volume 6.1 fL (7.4-10.4); Platelet Count 274 thou/uL (130-400); RBC Distribution Width 14.7 % (11.5-14.5); Red Blood Cell (RBC) Count 3.35 mill/uL (4.20-5.40)
[2017-07-11 06:17] LABS: ALT (SGPT) 15 U/L (8-55); AST (SGOT) 11 U/L (5-34); Albumin 3.1 g/dL (3.4-4.8); Alkaline Phosphatase 65 U/L (40-150); Anion Gap 13 mmol/L (10-20); BUN (Urea Nitrogen) 19 mg/dL (9.8-20.1); Bilirubin, Total 0.3 mg/dL (0.2-1.2); CRP (Inflammatory) 2.59 mg/dL (= or < 0.5); Calc. Creatinine Clearance 69 mL/min (70-130); Calcium 9.3 mg/dL (7.8-10.44); Carbon Dioxide 27 mmol/L (23-31); Chloride 104 mmol/L (98-107); Estimated GFR-MDRD 51; Globulin 3.2 g/dL (2.4-3.5); Glucose 182 mg/dL (80-115); Potassium 3.8 mmol/L (3.5-5.1); Protein, Total 6.3 g/dL (6.0-8.3); Sodium 140 mmol/L (136-145)
[2017-07-11] MEDS: Labetalol HCl 100 MG TAB PO SCH ×2 (08:43→21:39)
[2017-07-11] MEDS: hydrALAZINE 25 MG TAB PO SCH ×3 (08:44→21:37)
[2017-07-11] MEDS: Amlodipine 5 MG TAB PO SCH (08:44)
[2017-07-11] MEDS: cloNIDine 0.2 MG TAB PO SCH ×3 (08:45→21:38)
[2017-07-11] MEDS: Saccharomyces boulardii 250 MG CAP PO SCH ×2 (08:45→21:37)
[2017-07-11] MEDS: Stress 600 With Zinc 1 TAB PO SCH (08:45)
[2017-07-11] MEDS: Multivitamin W/ Minerals 1 TAB PO SCH (08:45)
[2017-07-11] MEDS: Gabapentin 400 MG CAP PO SCH ×3 (08:45→21:38)
[2017-07-11] MEDS: tiZANidine HCl 4 MG TAB PO SCH ×3 (08:45→21:39)
[2017-07-11] MEDS: Furosemide 20 MG TAB PO SCH (08:46)
--- NOTE | 2017-07-11 12:56 | PRG ---
DATE OF SERVICE: 07/11/2017 SUBJECTIVE: Ms. Zuñiga is doing well. Denies any complaints, resting comfortably, tolerating her therapy. Pain is improving. OBJECTIVE: VITAL SIGNS: She is afebrile, heart rate 79, respirations 20, oxygen saturation 93%, blood pressure 171/76. CARDIOVASCULAR: S1, S2 plus. RESPIRATORY: Normal vesicular breath sounds. ABDOMEN: Soft, nontender, bowel sounds heard in all quadrants. EXTREMITIES: Without cyanosis or clubbing. CENTRAL NERVOUS SYSTEM: Improving deconditioning. LABORATORY VALUES: Sed rate is down to 44. White count was 8.0, H&H is 9.7 and 31.9. Sodium 140, potassium 3.8, BUN and creatinine 19 and 1.25. Blood sugar was 182. CRP was 2.59. IMPRESSION: 1. Hyperglycemia, will check glycohemoglobin. 2. Continue physical therapy. 3. Nutritional support. 4. DVT and stress ulcer prophylaxis. 5. Decubitus precautions. MTDD
[2017-07-11 14:31] LABS: Hemoglobin A1c 6.5 % (4.0-6.0)
[2017-07-11] MEDS: Enoxaparin Sodium 40 MG/0.4 ML SYRINGE SC SCH (21:39)
[2017-07-12] MEDS: Multivitamin W/ Minerals 1 TAB PO SCH (09:07)
[2017-07-12] MEDS: Gabapentin 400 MG CAP PO SCH ×3 (09:07→21:02)
[2017-07-12] MEDS: Saccharomyces boulardii 250 MG CAP PO SCH ×2 (09:07→21:01)
[2017-07-12] MEDS: hydrALAZINE 25 MG TAB PO SCH ×3 (09:08→21:01)
[2017-07-12] MEDS: cloNIDine 0.2 MG TAB PO SCH ×3 (09:08→21:02)
[2017-07-12] MEDS: Amlodipine 5 MG TAB PO SCH (09:09)
[2017-07-12] MEDS: Labetalol HCl 100 MG TAB PO SCH ×2 (09:10→21:01)
[2017-07-12] MEDS: Furosemide 20 MG TAB PO SCH (09:10)
[2017-07-12] MEDS: tiZANidine HCl 4 MG TAB PO SCH ×3 (09:11→21:02)
[2017-07-12] MEDS: Stress 600 With Zinc 1 TAB PO SCH (09:11)
--- NOTE | 2017-07-12 09:30 | PRG ---
DATE OF SERVICE: 07/12/2017 SUBJECTIVE: Ms. Zuñiga is doing well. Denies any complaints, tolerating her therapy. Pain is slo wly improving. OBJECTIVE: VITAL SIGNS: She is afebrile, heart rate is 85, respirations 20, oxygen saturation 97%, blood pressu re 165/66. CARDIOVASCULAR: S1, S2 plus. RESPIRATORY: Normal vesicular breath sounds. ABDOMEN: Obese, nontender, bowel sounds heard in all quadrants. EXTREMITIES: Without cyanosis or clubbing. CENTRAL NERVOUS SYSTEM: Improving deconditioning. IMPRESSION: 1. Epidural abscess and diskitis, status post laminectomy. 2. Hypertension, fluctuating control. 3. Chronic rotator cuff syndrome. 4. Improving deconditioning. PLAN: 1. Continue current medications. 2. Nutritional support. 3. Deep venous thrombosis and stress ulcer prophylaxis. 4. Decubitus precautions. 5. Routine laboratory values. 6. Physical therapy.
[2017-07-12] MEDS: metFORMIN 500 MG TAB PO SCH (16:55)
[2017-07-12] MEDS: Enoxaparin Sodium 40 MG/0.4 ML SYRINGE SC SCH (21:02)
[2017-07-13] MEDS: metFORMIN 500 MG TAB PO SCH ×2 (09:21→17:33)
[2017-07-13] MEDS: tiZANidine HCl 4 MG TAB PO SCH ×3 (09:21→21:36)
[2017-07-13] MEDS: Saccharomyces boulardii 250 MG CAP PO SCH ×2 (09:22→21:31)
[2017-07-13] MEDS: Multivitamin W/ Minerals 1 TAB PO SCH (09:22)
[2017-07-13] MEDS: hydrALAZINE 25 MG TAB PO SCH ×3 (09:22→21:33)
[2017-07-13] MEDS: Stress 600 With Zinc 1 TAB PO SCH (09:22)
[2017-07-13] MEDS: Gabapentin 400 MG CAP PO SCH ×3 (09:22→21:34)
[2017-07-13] MEDS: Furosemide 20 MG TAB PO SCH (09:23)
[2017-07-13] MEDS: Labetalol HCl 100 MG TAB PO SCH ×2 (09:23→21:31)
[2017-07-13] MEDS: Amlodipine 5 MG TAB PO SCH (09:23)
[2017-07-13] MEDS: cloNIDine 0.2 MG TAB PO SCH ×3 (09:24→21:32)
[2017-07-13] MEDS: Enoxaparin Sodium 40 MG/0.4 ML SYRINGE SC SCH (21:34)
--- NOTE | 2017-07-13 23:40 | PRG ---
DATE OF SERVICE: 07/13/2017 SUBJECTIVE: The patient feels well, almost no back pain, improving conditioning, persistent fluctuat ion of blood pressure, however. OBJECTIVE: VITAL SIGNS: Blood pressure 152/68, morning temperature 98, pulse 84, respirations 18, last night bl ood pressure 191/81. LUNGS: Clear. CARDIAC: Shows regular rhythm. ABDOMEN: Soft and nontender . LABORATORY DATA: Show hemoglobin A1c as 6.5, sed rate is down to 44. ASSESSMENT: 1. Resolving epidural abscess and diskitis, status post laminectomy. 2. Labile hypertension. 3. Improving deconditioning. PLAN: Continue DVT and stress ulcer prophylaxis. Continue physical therapy. Continue to monitor bl ood pressure and glucose closely.
[2017-07-14] MEDS: hydrALAZINE 25 MG TAB PO SCH ×3 (09:08→22:00)
[2017-07-14] MEDS: Labetalol HCl 100 MG TAB PO SCH ×2 (09:08→22:01)
[2017-07-14] MEDS: Saccharomyces boulardii 250 MG CAP PO SCH ×2 (09:09→22:01)
[2017-07-14] MEDS: Gabapentin 400 MG CAP PO SCH ×3 (09:09→22:01)
[2017-07-14] MEDS: Amlodipine 5 MG TAB PO SCH (09:09)
[2017-07-14] MEDS: Furosemide 20 MG TAB PO SCH (09:09)
[2017-07-14] MEDS: cloNIDine 0.2 MG TAB PO SCH ×3 (09:09→22:00)
[2017-07-14] MEDS: tiZANidine HCl 4 MG TAB PO SCH ×3 (09:10→21:59)
[2017-07-14] MEDS: metFORMIN 500 MG TAB PO SCH ×2 (09:10→17:03)
[2017-07-14] MEDS: Multivitamin W/ Minerals 1 TAB PO SCH (09:10)
[2017-07-14] MEDS: Stress 600 With Zinc 1 TAB PO SCH (09:11)
--- NOTE | 2017-07-14 20:40 | PRG ---
DATE OF SERVICE: 07/14/2017 SUBJECTIVE: The patient feels well, lying in the bed. She has been walking out in the [place] and is h oping she can be discharged home soon. She is having no chest pain, shortness of breath, headaches, or dizziness. OBJECTIVE: VITAL SIGNS: Blood pressure is 174/80, pulse 76, respirations 20, temperature 97. LUNGS: Clear. CARDIAC: Showed regular rhythm. ABDOMEN: Soft and nontender. SKIN AND EXTREMITIES: Show no edema. ASSESSMENT: 1. Resolving epidural abscess and diskitis and increasing strength. 2. Hypertension, improved control. 3. Improving deconditioning. PLAN: Continue PT, OT. Continue DVT and stress ulcer prophylaxis.
[2017-07-14] MEDS: Enoxaparin Sodium 40 MG/0.4 ML SYRINGE SC SCH (22:02)
[2017-07-15] MEDS: Amlodipine 5 MG TAB PO SCH (08:25)
[2017-07-15] MEDS: Labetalol HCl 100 MG TAB PO SCH ×2 (08:26→21:39)
[2017-07-15] MEDS: cloNIDine 0.2 MG TAB PO SCH ×3 (08:27→21:41)
[2017-07-15] MEDS: Gabapentin 400 MG CAP PO SCH ×3 (08:27→21:40)
[2017-07-15] MEDS: tiZANidine HCl 4 MG TAB PO SCH ×3 (08:27→21:41)
[2017-07-15] MEDS: Furosemide 20 MG TAB PO SCH (08:28)
[2017-07-15] MEDS: metFORMIN 500 MG TAB PO SCH ×2 (08:28→16:53)
[2017-07-15] MEDS: Saccharomyces boulardii 250 MG CAP PO SCH ×2 (08:28→21:39)
[2017-07-15] MEDS: Stress 600 With Zinc 1 TAB PO SCH (08:28)
[2017-07-15] MEDS: Multivitamin W/ Minerals 1 TAB PO SCH (08:29)
[2017-07-15] MEDS: hydrALAZINE 25 MG TAB PO SCH ×3 (10:39→21:40)
--- NOTE | 2017-07-15 18:05 | PRG ---
DATE OF SERVICE: 07/15/2017 SUBJECTIVE: Ms. Zuñiga is doing well. Denies any complaints. Resting comfortably. She is improv ing with therapy, but Therapy states that she is still not ready to go home. She apparently still ca nnot climb stairs and she has stairs at home. Apparently the patient is trying to find a different h ome to live in. Pain is improving. OBJECTIVE: VITAL SIGNS: She is afebrile, heart rate is 78, respirations 18, blood pressure is 158/74. CARDIOVASCULAR: S1, S2 plus. RESPIRATORY: Normal vesicular breath sounds. ABDOMEN: Soft, nontender, bowel sounds heard in all quadrants. EXTREMITIES: Without cyanosis or clubbing. IMPRESSION: 1. Hypertension, slowly improving. 2. Chronic pain. 3. Resolved diskitis and epidural abscess, status post laminectomy. 4. Improving deconditioning. 5. Obesity. 6. Chronic rotator cuff pain. PLAN: 1. Continue current medications. 2. Nutritional support. 3. Heart healthy diet. 4. DVT and stress ulcer prophylaxis. 5. Decubitus precautions. 6. Routine laboratory values. 7. Physical therapy.
[2017-07-15] MEDS ORDERED: Sodium Chloride 0.9% 10 ML ONE (20:49)
[2017-07-16] MEDS: Enoxaparin Sodium 40 MG/0.4 ML SYRINGE SC SCH ×2 (03:39→21:43)
[2017-07-16] MEDS: Multivitamin W/ Minerals 1 TAB PO SCH (08:23)
[2017-07-16] MEDS: hydrALAZINE 25 MG TAB PO SCH ×3 (08:23→21:42)
[2017-07-16] MEDS: Saccharomyces boulardii 250 MG CAP PO SCH ×2 (08:23→21:40)
[2017-07-16] MEDS: Labetalol HCl 100 MG TAB PO SCH ×2 (08:24→21:40)
[2017-07-16] MEDS: Furosemide 20 MG TAB PO SCH (08:24)
[2017-07-16] MEDS: Stress 600 With Zinc 1 TAB PO SCH (08:24)
[2017-07-16] MEDS: Gabapentin 400 MG CAP PO SCH ×3 (08:24→21:45)
[2017-07-16] MEDS: Amlodipine 5 MG TAB PO SCH (08:25)
[2017-07-16] MEDS: metFORMIN 500 MG TAB PO SCH ×2 (08:26→16:43)
[2017-07-16] MEDS: cloNIDine 0.2 MG TAB PO SCH ×3 (08:26→21:42)
[2017-07-16] MEDS: tiZANidine HCl 4 MG TAB PO SCH ×3 (08:27→21:42)
--- NOTE | 2017-07-16 13:46 | PRG ---
DATE OF SERVICE: 07/16/2017 SUBJECTIVE: Ms. Zuñiga is doing well. Denies any complaints, resting comfortably. Discussed with therapy and therapy states that she is still not ready to go home. They are continuing to work with her. No evidence for fever, chills or recurrence of her epidural abscess or diskitis. OBJECTIVE: VITAL SIGNS: She is afebrile. Heart rate is 79, respirations 18, oxygen saturation 96% and blood pr essure is 158/73. CARDIOVASCULAR SYSTEM: S1 and S2 plus. RESPIRATORY SYSTEM: Normal vesicular breath sounds. ABDOMEN: Soft, obese and nontender. Bowel sounds heard in all quadrants. EXTREMITIES: Without cyanosis or clubbing. Improving deconditioning. IMPRESSION: 1. Resolved diskitis and epidural abscess. 2. Hypertension, improving, controlled. 3. Chronic rotator cuff pain. 4. Improving deconditioning. PLAN: 1. Continue physical therapy. 2. Discontinue PICC line. 3. DVT and stress ulcer prophylaxis. 4. Decubitus precautions. 5. Routine laboratory values. 6. Monitor blood pressure and adjust medications. 7. I discussed with the patient in detail and all questions answered.
[2017-07-17] MEDS: Labetalol HCl 100 MG TAB PO SCH ×2 (08:15→21:12)
[2017-07-17] MEDS: Stress 600 With Zinc 1 TAB PO SCH (08:15)
[2017-07-17] MEDS: Multivitamin W/ Minerals 1 TAB PO SCH (08:15)
[2017-07-17] MEDS: Saccharomyces boulardii 250 MG CAP PO SCH (08:15)
[2017-07-17] MEDS: cloNIDine 0.2 MG TAB PO SCH ×3 (08:16→21:14)
[2017-07-17] MEDS: Amlodipine 5 MG TAB PO SCH (08:16)
[2017-07-17] MEDS: metFORMIN 500 MG TAB PO SCH ×2 (08:16→16:37)
[2017-07-17] MEDS: Furosemide 20 MG TAB PO SCH (08:16)
[2017-07-17] MEDS: Gabapentin 400 MG CAP PO SCH ×3 (08:17→21:12)
[2017-07-17] MEDS: tiZANidine HCl 4 MG TAB PO SCH ×3 (08:17→21:12)
[2017-07-17] MEDS: hydrALAZINE 25 MG TAB PO SCH ×3 (08:17→21:14)
--- NOTE | 2017-07-17 13:28 | PRG ---
DATE OF SERVICE: 07/17/2017 SUBJECTIVE: Ms. Zuñiga is doing well. Denies any complaints, resting comfortably. OBJECTIVE: VITAL SIGNS: She is afebrile, heart rate is 77, respirations 18, oxygen saturation 98%, blood pressu re 131/63. CARDIOVASCULAR: S1, S2 plus. RESPIRATORY: Normal vesicular breath sounds. ABDOMEN: Soft, obese, nontender, bowel sounds heard in all quadrants. EXTREMITIES: Without cyanosis or clubbing. CENTRAL NERVOUS SYSTEM: Improving deconditioning. IMPRESSION: 1. Improving deconditioning. 2. Hypertension, much improved. 3. Obesity. 4. Chronic rotator cuff pain. 5. Resolved epidural abscess. PLAN: 1. Continue current medications. 2. Nutritional support. 3. Low sodium diet. 4. Physical therapy. 5. DVT and stress ulcer prophylaxis. 6. Decubitus precautions. 7. Routine laboratory values. 8. Dr. Pederson environmental health inspector noon today until 9:00 p.m. Saturday.
[2017-07-17] MEDS: HYDROcodone/Acetaminophen 10/325 mg Tablet PO PRN (18:34)
[2017-07-17] MEDS: Enoxaparin Sodium 40 MG/0.4 ML SYRINGE SC SCH (21:20)
[2017-07-18] MEDS: Stress 600 With Zinc 1 TAB PO SCH (08:33)
[2017-07-18] MEDS: Amlodipine 5 MG TAB PO SCH (08:33)
[2017-07-18] MEDS: metFORMIN 500 MG TAB PO SCH ×2 (08:34→16:18)
[2017-07-18] MEDS: cloNIDine 0.2 MG TAB PO SCH ×3 (08:34→20:51)
[2017-07-18] MEDS: Labetalol HCl 100 MG TAB PO SCH ×2 (08:34→20:52)
[2017-07-18] MEDS: Furosemide 20 MG TAB PO SCH (08:35)
[2017-07-18] MEDS: tiZANidine HCl 4 MG TAB PO SCH ×3 (08:35→20:54)
[2017-07-18] MEDS: Multivitamin W/ Minerals 1 TAB PO SCH (08:35)
[2017-07-18] MEDS: hydrALAZINE 25 MG TAB PO SCH ×3 (08:35→20:51)
[2017-07-18] MEDS: Gabapentin 400 MG CAP PO SCH ×3 (08:35→20:52)
--- NOTE | 2017-07-18 20:51 | PRG ---
DATE OF SERVICE: 07/18/2017 SUBJECTIVE: The patient feels well. States she is getting stronger, still not able to climb steps, which she required to get into her house. OBJECTIVE: VITAL SIGNS: Shows blood pressure is 158/73, temperature 98, pulse 81, respirations 20, O2 sats 98%, afebrile. LUNGS: Clear. CARDIAC EXAMINATION: Regular rhythm. ABDOMEN: Soft and nontender. SKIN AND EXTREMITIES: Showed no edema, clubbing, cyanosis. ASSESSMENT: 1. Resolving diskitis. 2. Improving deconditioning. 3. Stable hypertension. 4. Stable obesity. PLAN: Continue PT, OT. Continue DVT and stress ulcer prophylaxis.
[2017-07-18] MEDS: Enoxaparin Sodium 40 MG/0.4 ML SYRINGE SC SCH (20:52)
[2017-07-19] MEDS: Stress 600 With Zinc 1 TAB PO SCH (08:29)
[2017-07-19] MEDS: tiZANidine HCl 4 MG TAB PO SCH ×3 (08:29→20:19)
[2017-07-19] MEDS: Multivitamin W/ Minerals 1 TAB PO SCH (08:29)
[2017-07-19] MEDS: Furosemide 20 MG TAB PO SCH (08:29)
[2017-07-19] MEDS: Labetalol HCl 100 MG TAB PO SCH ×2 (08:29→20:18)
[2017-07-19] MEDS: Gabapentin 400 MG CAP PO SCH ×3 (08:29→20:18)
[2017-07-19] MEDS: cloNIDine 0.2 MG TAB PO SCH ×3 (08:31→20:17)
[2017-07-19] MEDS: Amlodipine 5 MG TAB PO SCH (08:31)
[2017-07-19] MEDS: metFORMIN 500 MG TAB PO SCH ×2 (08:32→16:36)
[2017-07-19] MEDS: hydrALAZINE 25 MG TAB PO SCH ×3 (08:32→20:18)
[2017-07-19] MEDS: HYDROcodone/Acetaminophen 10/325 mg Tablet PO PRN (11:55)
[2017-07-19] MEDS: Enoxaparin Sodium 40 MG/0.4 ML SYRINGE SC SCH (20:18)
[2017-07-20] MEDS: Amlodipine 5 MG TAB PO SCH (08:37)
[2017-07-20] MEDS: Furosemide 20 MG TAB PO SCH (08:37)
[2017-07-20] MEDS: metFORMIN 500 MG TAB PO SCH ×2 (08:37→17:01)
[2017-07-20] MEDS: Gabapentin 400 MG CAP PO SCH ×3 (08:37→21:38)
[2017-07-20] MEDS: Multivitamin W/ Minerals 1 TAB PO SCH (08:38)
[2017-07-20] MEDS: Stress 600 With Zinc 1 TAB PO SCH (08:38)
[2017-07-20] MEDS: Labetalol HCl 100 MG TAB PO SCH ×2 (08:38→21:39)
[2017-07-20] MEDS ORDERED: cloNIDine 0.2 MG TAB ONE (09:27)
[2017-07-20] MEDS: cloNIDine 0.2 MG TAB PO SCH ×3 (09:31→21:38)
[2017-07-20] MEDS: hydrALAZINE 25 MG TAB PO SCH ×3 (09:32→21:39)
[2017-07-20] MEDS: tiZANidine HCl 4 MG TAB PO SCH ×3 (09:32→21:40)
--- NOTE | 2017-07-20 20:48 | PRG ---
DATE OF SERVICE: 07/20/2017 SUBJECTIVE: The patient feels well, sitting in the chair, working with therapy but still unable to t doreen steps. Having no shortness of breath or chest pain or back pain. OBJECTIVE: VITAL SIGNS: Shows blood pressure is 148/65, pulse 80, temperature 97.8, respirations 18, O2 sats 97 %. LUNGS: Clear. CARDIAC: Shows regular rhythm. ABDOMEN: Soft and nontender. SKIN AND EXTREMITIES: Display no edema, clubbing, or cyanosis. NEUROLOGIC: Shows diffuse weakness in the legs. ASSESSMENT: 1. Resolving hypertension, uncontrolled, now controlled. 2. Stable obesity. 3. Improving deconditioning. 4. Resolved discitis. PLAN: Continue PT, OT. Continue DVT and stress ulcer prophylaxis. Continue blood pressure control.
[2017-07-20] MEDS: Enoxaparin Sodium 40 MG/0.4 ML SYRINGE SC SCH (21:40)
--- NOTE | 2017-07-20 22:28 | PRG ---
DATE OF SERVICE: 07/20/2017 SUBJECTIVE: The patient is lying in bed, just got into the bed. Had minimal therapy today, but did not go outside attempt to take steps. OBJECTIVE: VITAL SIGNS: Blood pressure is 145/64, pulse 86. LUNGS: Clear. CARDIAC: Examination showed regular rhythm. ABDOMEN: Soft and nontender. ASSESSMENT: 1. Improving deconditioning, resolved. 2. Diskitis, stable. 3. Hypertension, stable. 4. Obesity. PLAN: 1. Restart PT for strength next several days. 2. Continue personal exercises. 3. Continue to monitor blood pressure.
[2017-07-21] MEDS: Stress 600 With Zinc 1 TAB PO SCH (08:25)
[2017-07-21] MEDS: cloNIDine 0.2 MG TAB PO SCH ×3 (08:25→21:32)
[2017-07-21] MEDS: Multivitamin W/ Minerals 1 TAB PO SCH (08:25)
[2017-07-21] MEDS: Labetalol HCl 100 MG TAB PO SCH ×2 (08:25→21:31)
[2017-07-21] MEDS: tiZANidine HCl 4 MG TAB PO SCH ×3 (08:25→21:47)
[2017-07-21] MEDS: Amlodipine 5 MG TAB PO SCH (08:25)
[2017-07-21] MEDS: hydrALAZINE 25 MG TAB PO SCH ×3 (08:26→21:32)
[2017-07-21] MEDS: metFORMIN 500 MG TAB PO SCH ×2 (08:26→17:17)
[2017-07-21] MEDS: Furosemide 20 MG TAB PO SCH (08:26)
[2017-07-21] MEDS: Gabapentin 400 MG CAP PO SCH ×3 (08:26→21:31)
[2017-07-21] MEDS: Enoxaparin Sodium 40 MG/0.4 ML SYRINGE SC SCH (21:35)
[2017-07-22] MEDS: metFORMIN 500 MG TAB PO SCH ×2 (08:22→17:45)
[2017-07-22] MEDS: hydrALAZINE 25 MG TAB PO SCH ×3 (08:22→21:00)
[2017-07-22] MEDS: cloNIDine 0.2 MG TAB PO SCH ×3 (08:23→21:01)
[2017-07-22] MEDS: Labetalol HCl 100 MG TAB PO SCH ×2 (08:23→21:01)
[2017-07-22] MEDS: Stress 600 With Zinc 1 TAB PO SCH (08:24)
[2017-07-22] MEDS: Multivitamin W/ Minerals 1 TAB PO SCH (08:25)
[2017-07-22] MEDS: Furosemide 20 MG TAB PO SCH (08:25)
[2017-07-22] MEDS: tiZANidine HCl 4 MG TAB PO SCH ×3 (08:25→21:02)
[2017-07-22] MEDS: Gabapentin 400 MG CAP PO SCH ×3 (08:25→21:02)
[2017-07-22] MEDS: Amlodipine 5 MG TAB PO SCH (08:25)
[2017-07-22 14:22] LABS: Anion Gap 16 mmol/L (10-20); BUN (Urea Nitrogen) 26 mg/dL (9.8-20.1); Calc. Creatinine Clearance 58 mL/min (70-130); Carbon Dioxide 26 mmol/L (23-31); Chloride 102 mmol/L (98-107); Estimated GFR-MDRD 43; Glucose 160 mg/dL (80-115); Potassium 4.4 mmol/L (3.5-5.1); Sodium 140 mmol/L (136-145)
--- NOTE | 2017-07-22 15:59 | PRG ---
DATE OF SERVICE: 07/22/2017 SUBJECTIVE: Ms. Zuñiga is doing well. Denies any complaints, resting comfortably. She is trying to find another place to stay and she apparently needs a note stating that she is handicapped and she cannot need handicap access. She cannot climb stairs and she really would benefit from apartment or housing, which is all on one level without any steps. OBJECTIVE: VITAL SIGNS: She is afebrile, heart rate 75, respirations 20, oxygen saturation 97%, and blood press ure 181/75. CARDIOVASCULAR: S1 and S2 plus. RESPIRATORY: Normal vesicular breath sounds. ABDOMEN: Soft, nontender, bowel sounds heard in all quadrants. EXTREMITIES: Without cyanosis or clubbing. Peripheral pulses are palpable. CENTRAL NERVOUS SYSTEM: Grossly nonfocal. LABORATORY VALUES: 1. Hypertension fluctuating. 2. Resolved lumbar epidural abscess. 3. Persistent deconditioning, we would requiring her to have a one level housing with no stairs. 4. Chronic rotator cuff pain. 5. Obesity. 6. Improving deconditioning. 7. Diabetes mellitus. PLAN: 1. Continue current medications. 2. 1800-calorie heart healthy diet. 3. DVT and stress ulcer prophylaxis. 4. Decubitus precautions. 5. Nutritional support. 6. Recheck CBC and BMP in the morning.
[2017-07-22] MEDS: Enoxaparin Sodium 40 MG/0.4 ML SYRINGE SC SCH (21:02)
[2017-07-23 05:16] LABS: #Eosinphils 0.2 thou/uL (0.0-0.7); #Lymphocytes 2.1 thou/uL (1.20-3.40); #Monocytes 0.5 thou/uL (0.11-0.59); %Basophils 0.7 % (0.0-1.0); %Lymphocytes 31.2 % (21.0-51.0); %Monocytes 6.7 % (0.0-10.0); %Neutrophils 58.5 % (42.0-75.0); Hemoglobin 10.3 g/dL (12.0-16.0); Mean Corpuscular HGB CONC 30.2 g/dL (32.0-36.0); Mean Corpuscular Hemoglobin 29.3 pg (27.0-31.0); Mean Platelet Volume 6.4 fL (7.4-10.4); Platelet Count 244 thou/uL (130-400); RBC Distribution Width 15.3 % (11.5-14.5); Red Blood Cell (RBC) Count 3.52 mill/uL (4.20-5.40); White Blood Cell (WBC) Count 6.8 thou/uL (4.8-10.8)
[2017-07-23] MEDS: Stress 600 With Zinc 1 TAB PO SCH (08:44)
[2017-07-23] MEDS: Multivitamin W/ Minerals 1 TAB PO SCH (08:44)
[2017-07-23] MEDS: Gabapentin 400 MG CAP PO SCH ×3 (08:44→21:06)
[2017-07-23] MEDS: Amlodipine 5 MG TAB PO SCH (08:44)
[2017-07-23] MEDS: Labetalol HCl 100 MG TAB PO SCH ×2 (08:44→21:06)
[2017-07-23] MEDS: Furosemide 20 MG TAB PO SCH (08:44)
[2017-07-23] MEDS: hydrALAZINE 25 MG TAB PO SCH ×3 (08:44→21:05)
[2017-07-23] MEDS: tiZANidine HCl 4 MG TAB PO SCH ×3 (08:45→21:07)
[2017-07-23] MEDS: metFORMIN 500 MG TAB PO SCH ×2 (08:45→16:28)
[2017-07-23] MEDS: cloNIDine 0.2 MG TAB PO SCH ×2 (08:45→15:27)
--- NOTE | 2017-07-23 13:39 | PRG ---
DATE OF SERVICE: 07/23/2017 SUBJECTIVE: Ms. Zuñiga is doing well. Denies any complaints, resting comfortably, tolerating ther apy. OBJECTIVE: VITAL SIGNS: She is afebrile, heart rate 82, respirations 20, oxygen saturation 99%, blood pressure 140/63. CARDIOVASCULAR: S1, S2 plus. RESPIRATORY: Normal vesicular breath sounds. ABDOMEN: Soft, nontender, bowel sounds heard in all quadrants. EXTREMITIES: Without cyanosis or clubbing. CENTRAL NERVOUS SYSTEM: Improving deconditioning. LABORATORY VALUES: White count of 6.8, H&H is 10.3 and 34.2, sodium 140, potassium 4.4, BUN and crea tinine 26 and 1.46 with a GFR of 43. IMPRESSION: 1. Hypertension, much improved. 2. Chronic kidney disease stage 2-3. 3. Improving deconditioning. 4. Chronic rotator cuff pain. 5. Diabetes mellitus. PLAN: 1. Continue current medications. 2. Nutritional support. 3. DVT and stress ulcer prophylaxis. 4. Decubitus precautions. 5. 1800 calorie heart healthy diet. 6. Accu-Cheks with sliding scale coverage.
[2017-07-23] MEDS: cloNIDine 0.1 MG TAB PO SCH (21:06)
[2017-07-23] MEDS: Enoxaparin Sodium 40 MG/0.4 ML SYRINGE SC SCH (21:07)
[2017-07-24] MEDS: Multivitamin W/ Minerals 1 TAB PO SCH (08:32)
[2017-07-24] MEDS: metFORMIN 500 MG TAB PO SCH ×2 (08:32→17:03)
[2017-07-24] MEDS: Furosemide 20 MG TAB PO SCH (08:32)
[2017-07-24] MEDS: Stress 600 With Zinc 1 TAB PO SCH (08:32)
[2017-07-24] MEDS: tiZANidine HCl 4 MG TAB PO SCH ×3 (08:32→20:43)
[2017-07-24] MEDS: Gabapentin 400 MG CAP PO SCH ×3 (08:32→20:43)
[2017-07-24] MEDS: hydrALAZINE 25 MG TAB PO SCH ×3 (08:33→20:42)
[2017-07-24] MEDS: Labetalol HCl 100 MG TAB PO SCH ×2 (08:33→20:42)
[2017-07-24] MEDS: cloNIDine 0.1 MG TAB PO SCH ×3 (08:34→20:43)
[2017-07-24] MEDS: Amlodipine 5 MG TAB PO SCH (08:34)
--- NOTE | 2017-07-24 13:29 | PRG ---
DATE OF SERVICE: 07/24/2017 SUBJECTIVE: Ms. Zuñiga is doing well. Denies any complaints, resting comfortably, tolerating her therapy. OBJECTIVE: VITAL SIGNS: She is afebrile, heart rate 82, respirations 20, oxygen saturation 96%, blood pressure 147/70. CARDIOVASCULAR: S1, S2 plus. RESPIRATORY: Normal vesicular breath sounds. ABDOMEN: Soft, obese, nontender, bowel sounds heard in all quadrants. EXTREMITIES: Without cyanosis or clubbing. CENTRAL NERVOUS SYSTEM: Improving deconditioning. IMPRESSION: 1. Resolved epidural abscess. 2. Slowly improving deconditioning. 3. Chronic rotator cuff pain. 4. Hypertension, much improved. 5. Diabetes mellitus type 2. PLAN: 1. Continue current medications. 2. Nutritional support. 3. Deep venous thrombosis prophylaxis. 4. Decubitus precautions. 5. Stress ulcer prophylaxis. 6. Physical therapy.
[2017-07-24] MEDS: Enoxaparin Sodium 40 MG/0.4 ML SYRINGE SC SCH (20:47)
[2017-07-25] MEDS: metFORMIN 500 MG TAB PO SCH ×2 (09:22→17:00)
[2017-07-25] MEDS: hydrALAZINE 25 MG TAB PO SCH ×3 (09:44→21:01)
[2017-07-25] MEDS: Gabapentin 400 MG CAP PO SCH ×3 (09:45→21:01)
[2017-07-25] MEDS: Amlodipine 5 MG TAB PO SCH (09:45)
[2017-07-25] MEDS: Labetalol HCl 100 MG TAB PO SCH ×2 (09:45→21:02)
[2017-07-25] MEDS: Stress 600 With Zinc 1 TAB PO SCH (09:45)
[2017-07-25] MEDS: Furosemide 20 MG TAB PO SCH (09:46)
[2017-07-25] MEDS: Multivitamin W/ Minerals 1 TAB PO SCH (09:46)
[2017-07-25] MEDS: cloNIDine 0.1 MG TAB PO SCH ×3 (09:46→21:02)
[2017-07-25] MEDS: tiZANidine HCl 4 MG TAB PO SCH ×3 (09:46→21:01)
[2017-07-25] MEDS ORDERED: HumaLOG 300 UNITS/3 ML VIAL SC PRN (13:10)
[2017-07-25] MEDS ORDERED: Dextrose 50% Abboject 50 ML SYRINGE SLOW IVP PRN (13:10)
[2017-07-25] MEDS ORDERED: Dextrose 5% in Water 1,000 ML IV PRN (13:10)
--- NOTE | 2017-07-25 13:28 | PRG ---
DATE OF SERVICE: 07/25/2017 SUBJECTIVE: Ms. Zuñiga is doing well. Denies any complaints, resting comfortably. She is slowly improving, anticipating going home on next Saturday. OBJECTIVE: VITAL SIGNS: She is afebrile, heart rate 80, respirations 20, oxygen saturation is 99%, blood pressu re 139/70. CARDIOVASCULAR: S1, S2 plus. RESPIRATORY: Normal vesicular breath sounds. ABDOMEN: Soft, nontender, bowel sounds heard in all quadrants. EXTREMITIES: Without cyanosis or clubbing. Peripheral pulses are palpable. CENTRAL NERVOUS SYSTEM: Improving deconditioning. IMPRESSION: 1. Diabetes mellitus type 2. 2. Hypertension, much improved. 3. Resolved epidural abscess. 4. Chronic rotator cuff pain. 5. Improving deconditioning. PLAN: 1. Continue current medications. 2. Accu-Cheks a.c. and at bedtime. 3. Continue physical therapy. 4. Heart healthy ADA diet. 5. Discussed with patient in detail and all questions answered.
[2017-07-25] MEDS: HumaLOG 300 UNITS/3 ML VIAL SC PRN (17:00)
[2017-07-25] MEDS: Enoxaparin Sodium 40 MG/0.4 ML SYRINGE SC SCH (21:02)
[2017-07-26] MEDS: HumaLOG 300 UNITS/3 ML VIAL SC PRN (05:58)
[2017-07-26] MEDS: Gabapentin 400 MG CAP PO SCH ×3 (08:10→20:57)
[2017-07-26] MEDS: Multivitamin W/ Minerals 1 TAB PO SCH (08:10)
[2017-07-26] MEDS: Stress 600 With Zinc 1 TAB PO SCH (08:10)
[2017-07-26] MEDS: hydrALAZINE 25 MG TAB PO SCH ×3 (08:11→20:57)
[2017-07-26] MEDS: Labetalol HCl 100 MG TAB PO SCH ×2 (08:11→20:56)
[2017-07-26] MEDS: Amlodipine 5 MG TAB PO SCH (08:11)
[2017-07-26] MEDS: tiZANidine HCl 4 MG TAB PO SCH ×3 (08:11→20:57)
[2017-07-26] MEDS: cloNIDine 0.1 MG TAB PO SCH ×3 (08:12→20:58)
[2017-07-26] MEDS: Furosemide 20 MG TAB PO SCH (08:12)
[2017-07-26] MEDS: metFORMIN 500 MG TAB PO SCH (08:12)
[2017-07-26] MEDS ORDERED: metFORMIN 500 MG TAB PO SCH (08:55)
[2017-07-26] MEDS ORDERED: metFORMIN 850 MG TAB PO SCH (09:15)
--- NOTE | 2017-07-26 09:32 | PRG ---
DATE OF SERVICE: 07/26/2017 SUBJECTIVE: Ms. Zuñiga is doing well. Denies any complaints, resting comfortably, tolerating her medications. She is not happy with getting her Accu-Cheks done. She is improving with therapy and a nticipating discharge on Saturday. PHYSICAL EXAMINATION: VITAL SIGNS: She is afebrile, heart rate 80, respirations 18, oxygen saturation 98%, blood pressure this morning was elevated at 175/77. CARDIOVASCULAR: S1, S2 plus. RESPIRATORY: Normal vesicular breath sounds. ABDOMEN: Soft, nontender, obese. Bowel sounds heard in all quadrants. EXTREMITIES: Without cyanosis or clubbing. CENTRAL NERVOUS SYSTEM: Improving deconditioning. Blood sugars are 160, 183 and 162. IMPRESSION: 1. Diabetes mellitus type 2. 2. Hypertension, improved. 3. Improving deconditioning. 4. Resolved epidural abscess. 5. Chronic rotator cuff pain. PLAN: 1. Continue current medications, but increase her metformin to 850 b.i.d. 2. 1800 calorie, low sodium diet. 3. DVT and stress ulcer prophylaxis. 4. Decubitus precautions. 5. Continue physical therapy. 6. Discharge planning. She wants [facility].
[2017-07-26] MEDS: metFORMIN 850 MG TAB PO SCH (16:57)
[2017-07-26] MEDS: Enoxaparin Sodium 40 MG/0.4 ML SYRINGE SC SCH ×2 (20:58→21:02)
[2017-07-27] MEDS: HumaLOG 300 UNITS/3 ML VIAL SC PRN ×2 (06:32→16:48)
[2017-07-27] MEDS: Stress 600 With Zinc 1 TAB PO SCH (08:07)
[2017-07-27] MEDS: metFORMIN 850 MG TAB PO SCH ×2 (08:07→16:48)
[2017-07-27] MEDS: Multivitamin W/ Minerals 1 TAB PO SCH (08:08)
[2017-07-27] MEDS: Labetalol HCl 100 MG TAB PO SCH ×2 (08:08→20:46)
[2017-07-27] MEDS: tiZANidine HCl 4 MG TAB PO SCH ×3 (08:08→20:47)
[2017-07-27] MEDS: Furosemide 20 MG TAB PO SCH (08:08)
[2017-07-27] MEDS: Gabapentin 400 MG CAP PO SCH ×3 (08:08→20:42)
[2017-07-27] MEDS: hydrALAZINE 25 MG TAB PO SCH ×3 (08:09→20:47)
[2017-07-27] MEDS: Amlodipine 5 MG TAB PO SCH (08:09)
[2017-07-27] MEDS: cloNIDine 0.1 MG TAB PO SCH ×2 (08:09→15:24)
--- NOTE | 2017-07-27 08:54 | PRG ---
DATE OF ADMISSION: 06/29/2017 DATE OF SERVICE: 07/27/2017 HISTORY OF PRESENT ILLNESS: Mrs. Zuñiga is a very pleasant 71-year-old black female that unfortuna tely had an epidural abscess and diskitis. She was admitted to the hospital and had a laminectomy do ne with removal of abscess. She eventually was transferred to [facility] for 6 weeks of IV antibiotics. SUBJECTIVE: The patient states she is doing very well. She is getting stronger and she has much les s pain. She has no complaints today. Patient did request past this morning for some type of special buddhist conference that she wants to go to buddhist. I did warn her about being very safe and make ensure that she has no episodes of falling , etc. PHYSICAL EXAMINATION: VITAL SIGNS: Today reveal blood pressure 170/70, pulse 82, respirations 18, O2 saturation 98%, and t emperature 98.0. Sugar this morning is 156. Sugar yesterday morning fasting was 162, before lunch 1 32, before supper 133, and one before bedtime 158. GENERAL: This is a well-developed, well-nourished, very pleasant, slightly obese black female in no apparent distress at this time. HEENT: Reveals normocephalic, nontraumatic cranium. Pupils are equally round and reactive. Extraoc ular movements intact. Nose and throat are slightly dry. NECK: Supple. LUNGS: Chest is clear to auscultation. No rales, rhonchi, no wheezes and no cough is heard. CARDIOVASCULAR: Reveals a regular rate and rhythm without murmurs, gallops or rubs. ABDOMEN: Obese, soft, nontender, without organomegaly. Normal bowel sounds are noted in all 4 quadr ants. No rebound or guarding is noted. GENITOURINARY: Deferred. EXTREMITIES: Reveal no clubbing, cyanosis or edema. IMPRESSION: 1. Diabetes, better controlled. 2. Hypertension, stable. 3. Generalized weakness, slowly improving. 4. Epidural abscess, resolved. 5. Chronic rotator cuff pain. PLAN: 1. We will continue present medications. 2. Continue 1800-calorie low sodium diet and encouraged the patient to stick to that pretty well. 3. Continue deep venous thrombosis prophylaxis. 4. Continue stress ulcer prophylaxis. 5. Decubitus precautions. 6. Continue physical therapy and occupational therapy. 7. The patient most likely will be discharged if she continues to do well on Saturday.
[2017-07-27] MEDS: Enoxaparin Sodium 40 MG/0.4 ML SYRINGE SC SCH (20:44)
[2017-07-27] MEDS: cloNIDine 0.2 MG TAB PO SCH (20:46)
--- NOTE | 2017-07-28 07:37 | PRG ---
DATE OF SERVICE: 07/28/2017 DATE OF ADMISSION: 06/29/2017 HISTORY OF PRESENT ILLNESS: Ms. Zuñiga is a very pleasant 71-year-old black female that unfortunat nuria had epidural abscess and diskitis. She was admitted to the hospital and had removal of the absce ss and laminectomy. Eventually, she was transferred to [facility] for a total of 6 w eeks of IV antibiotics. SUBJECTIVE: The patient states she had a wonderful day yesterday. She did go yesterday morning to [facility] conference and came back and had no problems at all. She has no complaints today and state s she is doing well. PHYSICAL EXAMINATION: VITAL SIGNS: Reveal blood pressure this morning 132/60 with pulse 84-88, respirations 18, O2 sat 97% -98%, T-max 97.6. GENERAL: This is a well-developed, well-nourished, slightly obese black female in no apparent distre ss at this time. HEENT: Reveals normocephalic and nontraumatic cranium. Pupils are equally round and reactive. Extr aocular movements are intact. Nose and throat are moist this morning. NECK: Supple, without masses, nodes or bruits. LUNGS: Chest is clear to auscultation. No rales, no rhonchi, no wheezes are heard. No cough is not ed. HEART: Reveals a regular rate and rhythm without murmurs, gallops or rubs. ABDOMEN: Obese, soft, nontender, without organomegaly. No rebound or guarding is noted. Normal bow el sounds are noted in all 4 quadrants. GENITOURINARY: Exam is deferred. EXTREMITIES: Reveal no clubbing, cyanosis or edema. LABORATORY DATA: No labs were done today. ASSESSMENT: 1. Diabetes, stable. 2. Hypertension, stable. 3. Generalized weakness, continues to slowly improve. 4. Epidural abscess, resolved. 5. Chronic rotator cuff pain. PLAN: 1. Continue present medications. 2. Continue 1800 calorie low sodium diet. 3. Continue DVT prophylaxis. 4. Continue stress ulcer prophylaxis. 5. Decubitus precautions. 6. Continue physical therapy and occupational therapy. 7. Possible discharge on Saturday.
[2017-07-28] MEDS: hydrALAZINE 25 MG TAB PO SCH ×3 (08:59→21:38)
[2017-07-28] MEDS: Stress 600 With Zinc 1 TAB PO SCH (08:59)
[2017-07-28] MEDS: cloNIDine 0.2 MG TAB PO SCH ×3 (08:59→21:27)
[2017-07-28] MEDS: tiZANidine HCl 4 MG TAB PO SCH ×3 (09:00→21:36)
[2017-07-28] MEDS: Multivitamin W/ Minerals 1 TAB PO SCH (09:00)
[2017-07-28] MEDS: Labetalol HCl 100 MG TAB PO SCH ×2 (09:00→21:27)
[2017-07-28] MEDS: Furosemide 20 MG TAB PO SCH (09:00)
[2017-07-28] MEDS: Gabapentin 400 MG CAP PO SCH ×3 (09:00→21:27)
[2017-07-28] MEDS: Amlodipine 5 MG TAB PO SCH (09:00)
[2017-07-28] MEDS: metFORMIN 850 MG TAB PO SCH ×2 (09:01→21:25)
[2017-07-28] MEDS ORDERED: hydrALAZINE 10 MG TAB PO SCH (21:15)
[2017-07-28] MEDS: Enoxaparin Sodium 40 MG/0.4 ML SYRINGE SC SCH (21:28)
[2017-07-29] MEDS: HumaLOG 300 UNITS/3 ML VIAL SC PRN (06:10)
[2017-07-29] MEDS: metFORMIN 850 MG TAB PO SCH ×3 (08:00→16:40)
[2017-07-29] MEDS: Stress 600 With Zinc 1 TAB PO SCH (08:57)
[2017-07-29] MEDS: Labetalol HCl 100 MG TAB PO SCH ×2 (08:58→21:21)
[2017-07-29] MEDS: cloNIDine 0.2 MG TAB PO SCH ×3 (08:58→21:21)
[2017-07-29] MEDS: Gabapentin 400 MG CAP PO SCH ×3 (09:00→21:20)
[2017-07-29] MEDS: Amlodipine 5 MG TAB PO SCH (09:00)
[2017-07-29] MEDS: Furosemide 20 MG TAB PO SCH (09:01)
[2017-07-29] MEDS: hydrALAZINE 25 MG TAB PO SCH ×3 (09:01→21:20)
[2017-07-29] MEDS: Multivitamin W/ Minerals 1 TAB PO SCH (09:01)
[2017-07-29] MEDS: tiZANidine HCl 4 MG TAB PO SCH ×4 (09:02→21:21)
--- NOTE | 2017-07-29 13:30 | PRG ---
DATE OF SERVICE: 07/29/2017 SUBJECTIVE: Ms. Zuñiga is doing well. Denies any complaints, resting comfortably. She states sadie t her house will not be ready until tomorrow and she wants to wait until tomorrow to go home. No oth er concerns or questions. OBJECTIVE: VITAL SIGNS: She is afebrile, heart rate 82, blood pressure is 154/71, oxygen saturation is 97%. CARDIOVASCULAR SYSTEM: S1, S2 plus. RESPIRATORY SYSTEM: Normal vesicular breath sounds. ABDOMEN: Soft, nontender, bowel sounds heard in all quadrants. EXTREMITIES: Without cyanosis or clubbing. IMPRESSION: 1. Hypertension, much improved. 2. Deconditioning, improving. 3. Resolved epidural abscess. 4. Chronic rotator cuff pain. 5. Diabetes mellitus type 2. PLAN: 1. Continue current medications. 2. Nutritional support. 3. Heart healthy diet. 4. DVT and stress ulcer prophylaxis. 5. Decubitus precautions. Blood sugars are 117, 154, 158 and 136. 6. Anticipate discharging her home tomorrow.
[2017-07-29] MEDS: Enoxaparin Sodium 40 MG/0.4 ML SYRINGE SC SCH (21:24)
[2017-07-30 05:15] VITALS: BMI 35.1
[2017-07-30] MEDS: Stress 600 With Zinc 1 TAB PO SCH (08:08)
[2017-07-30] MEDS: metFORMIN 850 MG TAB PO SCH (08:08)
[2017-07-30] MEDS: Labetalol HCl 100 MG TAB PO SCH (08:08)
[2017-07-30] MEDS: Gabapentin 400 MG CAP PO SCH (08:08)
[2017-07-30] MEDS: cloNIDine 0.2 MG TAB PO SCH (08:09)
[2017-07-30] MEDS: hydrALAZINE 25 MG TAB PO SCH (08:10)
[2017-07-30] MEDS: Amlodipine 5 MG TAB PO SCH (08:10)
[2017-07-30] MEDS: Furosemide 20 MG TAB PO SCH (08:11)
[2017-07-30] MEDS: tiZANidine HCl 4 MG TAB PO SCH (08:11)
[2017-07-30] MEDS: Multivitamin W/ Minerals 1 TAB PO SCH (08:11)
[2017-07-30 08:14] VITALS: BP 174/81; TEMP 97.1
--- NOTE | 2017-07-30 14:16 | DIS ---
PRINCIPAL DIAGNOSIS: Epidural abscess status post laminectomy. SECONDARY DIAGNOSES: 1. Hypertension. 2. Deconditioning. 3. Peripheral neuropathy. 4. Chronic rotator cuff pain. 5. New onset diabetes mellitus type 2. 6. History of cervical cancer. 7. Obesity. COMPLICATIONS: None. ADVERSE REACTIONS: None. PROCEDURES: None. CONSULTATIONS: None. HOSPITAL COURSE: The patient was admitted to the hospital for long-term IV antibiotic therapy. She has done well and finished her 6 weeks. She has continued to progress with therapy and therapy has d eemed her stable to be discharged with home health. [facility] has been arranged. She w as noticed to have hyperglycemia and her glycohemoglobin was 6.7 and she was started on metformin 500 mg b.i.d. which was increased to 850 b.i.d. and it has kept her blood sugars below 150. Her antihyp ertensive medications need to be adjusted, but her blood pressure is under reasonable control at this point. She has a very small open area in her incision in her back with very minimal serous drainage . No pain. LABORATORY VALUES: Her laboratory values have remained stable. PHYSICAL EXAMINATION: VITAL SIGNS: On the day of discharge, she is afebrile, heart rate is 85, respirations 20, oxygen sat uration 98%, blood pressure is 154/71. HEENT: Normocephalic, atraumatic. CARDIOVASCULAR: S1, S2 plus. RESPIRATORY: Normal vesicular breath sounds. ABDOMEN: Soft, obese, nontender, bowel sounds heard in all quadrants. EXTREMITIES: Without cyanosis or clubbing. Peripheral pulses are palpable. CENTRAL NERVOUS SYSTEM: Grossly nonfocal except for generalized weakness. The incision in the back is completely healed except for a small area in the lower 1/3 which is about the size of a pin head. No erythema or pain, unable to extruded any drainage. LABORATORY VALUES: Last lab work was done on the . Her white count is 6.8, H&H is 10.3 and 34.2 . Blood sugars are 158, 136, 141, 150, 136, and 113. Sodium 140, potassium 4.4, BUN and creatinine 26 and 1.46. DISCHARGE MEDICATIONS: Tylenol 500 mg q.6h. p.r.n., Norvasc 10 mg daily, clonidine 0.3 mg t.i.d., La six 20 mg daily, gabapentin 400 mg t.i.d., hydralazine 100 mg t.i.d., metformin 850 mg b.i.d., Normod yne, which is labetalol 300 mg b.i.d., multivitamin with zinc 1 tablet daily, Zanaflex 4 mg at bedtim e p.r.n. DIET: 1800 calorie heart healthy diet. ACTIVITY: As tolerated. Home health with [facility] with therapy. Physical therapy and wound care if needed. Silvina faye is to follow up in my office in 2 weeks. She is to call us with any questions or concerns. Prescr iptions have been sent in to [facility]. Total time spent on this discharge is 35 minutes.
== END 2017-07-30 14:00 | disposition home health service (06) | DRG 947 ==
LOC: NAV ACUTE 13:30
PROVIDERS: ADMIT Internal Medicine; ATTEND Internal Medicine
DX: R53.1 Weakness (principal); G06.1 Intraspinal abscess and granuloma; E11.22 Type 2 diabetes mellitus with diabetic chronic kidney disease; N18.3 Chronic kidney disease, stage 3 (moderate); E66.01 Morbid (severe) obesity due to excess calories; M46.46 Discitis, unspecified, lumbar region; M19.90 Unspecified osteoarthritis, unspecified site; Z85.41 Personal history of malignant neoplasm of cervix uteri; M25.519 Pain in unspecified shoulder; Z68.34 Body mass index [BMI] 34.0-34.9, adult; M75.100 Unspecified rotator cuff tear or rupture of unspecified shoulder, not specified as traumatic; R19.7 Diarrhea, unspecified; T78.3XXA Angioneurotic edema, initial encounter; E11.65 Type 2 diabetes mellitus with hyperglycemia; I12.9 Hypertensive chronic kidney disease with stage 1 through stage 4 chronic kidney disease, or unspecified chronic kidney disease; D64.9 Anemia, unspecified
CPT/HCPCS: 36415; 36416; 80048; 80053; 80202; 83036; 85025; 85652; 86140; 87070; 87205; 87324; 87449; A4216; C1751; J0696; J1650; J3370; J7050

== ENCOUNTER 2018-03-10 10:42 | Emergency (ER) | payer MEDICARE, BC ==
--- NOTE | 2018-03-10 11:50 | RAD ---
PORTABLE SEMIUPRIGHT FRONTAL CHEST RADIOGRAPH: Date: 03/10/18 COMPARISON: 05/16/17. HISTORY: Swelling and fever. FINDINGS: The cardiac silhouette is prominent. There is pulmonary vascular congestion. No pneumothorax, pleural fluid, lobar consolidation, or alveolar edema. IMPRESSION: Pulmonary vascular congestion and prominence of the cardiac silhouette. If symptoms persist, PA and l ateral imaging of the chest is advised. POS: [facility]
--- NOTE | 2018-03-10 12:54 | ULT ---
RIGHT UPPER EXTREMITY VENOUS DOPPLER ULTRASOUND EVALUATION: HISTORY: Right upper extremity swelling for 5 days. FINDINGS: Multiple longitudinal and transverse images of the right upper extremity venous system are obtained u sing a multihertz linear ray transducer. Real-time, color flow, and spectral waveform Doppler analys is was used to evaluate the right upper extremity venous system. Good flow is seen in the right internal jugular vein, right subclavian vein, right axillary vein, rig ht brachial veins, right basilar vein, right cephalic vein, right ulnar and radial veins. IMPRESSION: No evidence of right upper extremity deep venous thrombosis. Good flow is seen in all the major uppe r extremity veins. POS: [facility]
[2018-03-10] MEDS ORDERED: Fentanyl 100 MCG/2 ML VIAL ONE (13:22)
[2018-03-10] MEDS ORDERED: Acetaminophen 500 MG TAB ONE (13:22)
[2018-03-10] MEDS ORDERED: Sodium Chloride 0.9% 1,000 ML ONE (13:33)
[2018-03-10 13:35] LABS: Bilirubin Negative (Negative); Blood, Urine Negative (Negative); Clarity Clear (Clear); Glucose, Urine (Dipstick) Negative (Negative); Leukocyte Trace (Negative); Nitrite Positive (Negative); Protein, Urine (Dipstick) 100 mg/dL (Neg-Trace); Urobilinogen 0.2 mg/dL (0.2-1.0); pH, Urine 6.5 (5.0-9.0)
[2018-03-10 13:51] LABS: ALT (SGPT) 23 U/L (8-55); AST (SGOT) 48 U/L (5-34); Albumin 3.7 g/dL (3.4-4.8); Alkaline Phosphatase 75 U/L (40-150); Anion Gap 20 mmol/L (10-20); Anisocytosis SLIGHT = 6-15 cells (100X) (0-5/hpf); BUN (Urea Nitrogen) 20 mg/dL (9.8-20.1); Bilirubin, Total 0.7 mg/dL (0.2-1.2); CK (CPK) 48 U/L (29-168); Calc. Creatinine Clearance 0 mL/min (70-130); Calcium 10.1 mg/dL (7.8-10.44); Carbon Dioxide 23 mmol/L (23-31); Chloride 102 mmol/L (98-107); Eosinophils 3 % (0-10); Estimated GFR-MDRD 48; Globulin 5.3 g/dL (2.4-3.5); Glucose 96 mg/dL (80-115); Hemoglobin 10.8 g/dL (12.0-16.0); Hypochromia SLIGHT = 6-15 cells (100X) (0-5/hpf); Lymphocytes 30 % (21-51); MDiff Complete? YES; Mean Corpuscular HGB CONC 30.2 g/dL (32.0-36.0); Mean Corpuscular Hemoglobin 28.8 pg (27.0-31.0); Mean Corpuscular Volume 95.4 fL (78.0-98.0); Mean Platelet Volume 6.7 fL (7.4-10.4); Monocytes 7 % (0-10); Neutrophil 60 % (42-75); PLT Morphology Comment Appears Adequate; Platelet Count 334 thou/uL (130-400); RBC Distribution Width 17.3 % (11.5-14.5); Red Blood Cell (RBC) Count 3.73 mill/uL (4.20-5.40); Sodium 139 mmol/L (136-145); White Blood Cell (WBC) Count 12.3 thou/uL (4.8-10.8)
[2018-03-10] MEDS ORDERED: Sodium Chloride 0.9% 100 ML ONE (13:52)
[2018-03-10] MEDS ORDERED: Sodium Chloride 0.9% 250 ML 250 ML ONE (13:54)
[2018-03-10 13:55] LABS: Bacteria/HPF 1+ HPF (None Seen); Other Microscopic Description NO; Squamous Epithelial 0-3 HPF (0-3)
[2018-03-10 13:59] LABS: RBC/HPF None Seen HPF (0-3)
[2018-03-10] MEDS ORDERED: cefTRIAXone\\ROCEPHIN 1 GM VIAL ONE (14:00)
--- NOTE | 2018-03-10 15:27 | RAD ---
RIGHT WRIST THREE VIEWS: Indication: Pain, swelling. Limited mobility. FINDINGS: There is osseous irregularity involving the medial aspect of the carpal row at the expected region of the pisiform/triquetrum. There is limited assessment without a well-positioned lateral projection. There is medially located soft tissue swelling. Osteoarthritis is present. IMPRESSION: Fracture within the region of the superimposed pisiform and triquetrum bones. There is associated sof t tissue swelling. Correlation with wrist CT, noncontrast, would prove useful for further anatomic de lineation. POS: [facility]
[2018-03-10 22:15] LABS: CRP (Inflammatory) 25.56 mg/dL (= or < 0.5)
== END 2018-03-10 15:04 | disposition short-term general hospital (02) ==
LOC: NAV ERS 10:42
DX: M79.89 Other specified soft tissue disorders (principal); I10 Essential (primary) hypertension; E66.9 Obesity, unspecified; M19.90 Unspecified osteoarthritis, unspecified site; Z85.41 Personal history of malignant neoplasm of cervix uteri; Z79.899 Other long term (current) drug therapy
CPT/HCPCS: 36415; 71045; 80053; 81003; 81015; 82550; 83605; 85025; 85652; 86140; 87040; 87077; 87086; 87186; 93005; 96361; 96374; 96375; J0696; J3010; J3370; J7050

== ENCOUNTER 2018-12-10 11:57 | Outpatient (CLI) | payer MEDICARE, BC ==
--- NOTE | 2018-12-10 12:18 | RAD ---
XR Chest Pa Lat STANDARD HISTORY: Shortness of breath and cough COMPARISON: 03/10/2018 FINDINGS: The cardiac silhouette is prominent. There is pulmonary vascular congestion. No pneumothorax, pleural fluid, lobar consolidation, or alveolar edema.
== END 2018-12-10 11:58 | disposition home or self-care (01) ==
LOC: NAV RAD 11:57
PROVIDERS: ATTEND Nurse Practitioner Adult Health
DX: R06.02 Shortness of breath (principal); R05 Cough
CPT/HCPCS: 71046

== ENCOUNTER 2019-07-27 20:00 | Emergency (ER) | payer MEDICARE, BC ==
[2019-07-27] MEDS ORDERED: cloNIDine 0.1 MG TAB ONE (21:06)
[2019-07-27] MEDS ORDERED: cloNIDine 0.2 MG TAB ONE (21:06)
--- NOTE | 2019-07-27 21:18 | CT ---
CT BRAIN WITHOUT CONTRAST: History: Fall. Headache. FINDINGS: There are changes of cortical atrophy, ischemic disease and old infracting in the left posterior ian etal occipital lobe. The ventricular size is appropriate and the basilar cisterns patent. No evidence of acute infarct, hemorrhage, midline shift, or abnormal extraaxial fluid collections are seen. The bony calvarium is intact. The visualized paranasal sinuses and mastoid air cells are well aerated. IMPRESSION: No CT evidence of acute intracranial process. POS: [id number]
[2019-07-27] MEDS ORDERED: hydrALAZINE 20 MG/ML VIAL ONE (22:38)
[2019-07-27 22:56] LABS: Anion Gap 17 mmol/L (10-20); BUN (Urea Nitrogen) 27 mg/dL (9.8-20.1); Calc. Creatinine Clearance 0 mL/min (70-130); Calcium 9.8 mg/dL (7.8-10.44); Carbon Dioxide 28 mmol/L (23-31); Chloride 103 mmol/L (98-107); Estimated GFR-MDRD 40; Glucose 191 mg/dL (83-110); Potassium 3.6 mmol/L (3.5-5.1); Sodium 144 mmol/L (136-145)
== END 2019-07-27 23:20 | disposition home or self-care (01) ==
LOC: NAV ERS 20:00
DX: S09.90XA Unspecified injury of head, initial encounter (principal); I10 Essential (primary) hypertension; M19.90 Unspecified osteoarthritis, unspecified site; M86.9 Osteomyelitis, unspecified; Z87.891 Personal history of nicotine dependence; Z85.41 Personal history of malignant neoplasm of cervix uteri; Z79.84 Long term (current) use of oral hypoglycemic drugs; Z79.899 Other long term (current) drug therapy; Z79.82 Long term (current) use of aspirin; W01.198A Fall on same level from slipping, tripping and stumbling with subsequent striking against other object, initial encounter
CPT/HCPCS: 70450; 80048; 96374; J0360

== ENCOUNTER 2021-08-09 14:25 | Inpatient (IN) | payer MEDICARE, BC ==
[2021-08-09] MEDS ORDERED: Dextrose 5% in Water 1,000 ML IV PRN (16:45)
[2021-08-09] MEDS ORDERED: Dextrose 50% Abboject 50 ML SYRINGE IVP PRN (16:45)
[2021-08-09] MEDS ORDERED: HumaLOG 300 UNITS/3 ML VIAL SC PRN (16:45)
[2021-08-09] MEDS: Carvedilol 6.25 MG TAB PO SCH (17:06)
[2021-08-09] MEDS: hydrALAZINE 25 MG TAB PO SCH (20:28)
[2021-08-09] MEDS: tiZANidine HCl 4 MG TAB PO SCH (20:29)
[2021-08-10 06:44] LABS: #Basophils 0.1 thou/uL (0.0-0.2); #Eosinphils 0.1 thou/uL (0.0-0.7); #Lymphocytes 1.7 thou/uL (1.20-3.40); #Monocytes 0.5 thou/uL (0.11-0.59); #Neutrophils 4.8 thou/uL (1.40-6.50); %Basophils 1.4 % (0.0-1.0); %Eosinophils 1.6 % (0.0-10.0); %Lymphocytes 23.5 % (21.0-51.0); %Monocytes 6.7 % (0.0-10.0); %Neutrophils 66.9 % (42.0-75.0); Hemoglobin 12.1 g/dL (12.0-16.0); Mean Corpuscular Hemoglobin 32.2 pg (27.0-31.0); Mean Platelet Volume 6.7 fL (7.4-10.4); Platelet Count 270 thou/uL (130-400); RBC Distribution Width 13.7 % (11.5-14.5); Red Blood Cell (RBC) Count 3.76 mill/uL (4.20-5.40); White Blood Cell (WBC) Count 7.2 thou/uL (4.8-10.8)
[2021-08-10 06:59] LABS: ALT (SGPT) 32 U/L (8-55); AST (SGOT) 25 U/L (5-34); Albumin 3.1 g/dL (3.4-4.8); Alkaline Phosphatase 39 U/L (40-110); Anion Gap 13 mmol/L (10-20); BUN (Urea Nitrogen) 48 mg/dL (9.8-20.1); Bilirubin, Total 0.4 mg/dL (0.2-1.2); Calc. Creatinine Clearance 50 mL/min (70-130); Calcium 9.8 mg/dL (7.8-10.44); Carbon Dioxide 35 mmol/L (23-31); Chloride 94 mmol/L (98-107); Globulin 3.6 g/dL (2.4-3.5); Glucose 154 mg/dL (83-110); Potassium 3.6 mmol/L (3.5-5.1); Protein, Total 6.7 g/dL (5.8-8.1); Sodium 138 mmol/L (136-145)
[2021-08-10] MEDS: glyBURIDE 2.5 MG TAB PO SCH (07:30)
[2021-08-10] MEDS: NIFEdipine XL 30 MG TAB PO SCH (08:41)
[2021-08-10] MEDS: hydrALAZINE 25 MG TAB PO SCH ×3 (08:43→21:32)
[2021-08-10] MEDS: Carvedilol 6.25 MG TAB PO SCH ×2 (08:43→16:52)
[2021-08-10] MEDS: tiZANidine HCl 4 MG TAB PO SCH ×2 (08:44→21:32)
[2021-08-10] MEDS: predniSONE 20 MG TAB PO SCH (08:44)
[2021-08-10] MEDS: Aspirin 81 mg Enteric Coated Tablet PO SCH (08:44)
[2021-08-10] MEDS: Furosemide 20 MG TAB PO SCH (08:44)
[2021-08-11] MEDS: Aspirin 81 mg Enteric Coated Tablet PO SCH (08:26)
[2021-08-11] MEDS: tiZANidine HCl 4 MG TAB PO SCH ×2 (08:26→20:53)
[2021-08-11] MEDS: predniSONE 20 MG TAB PO SCH (08:27)
[2021-08-11] MEDS: hydrALAZINE 25 MG TAB PO SCH ×3 (08:28→20:53)
[2021-08-11] MEDS: NIFEdipine XL 30 MG TAB PO SCH (08:28)
[2021-08-11] MEDS: Furosemide 20 MG TAB PO SCH (08:29)
[2021-08-11] MEDS: Carvedilol 6.25 MG TAB PO SCH ×2 (08:30→16:50)
[2021-08-11] MEDS: Allopurinol 100 MG TAB PO SCH (08:30)
[2021-08-11] MEDS: glyBURIDE 2.5 MG TAB PO SCH (08:43)
[2021-08-11 11:22] LABS: SARS-CoV-2 PCR by NAA Not Detected (NotDetected)
[2021-08-12] MEDS: Furosemide 20 MG TAB PO SCH (08:09)
[2021-08-12] MEDS: hydrALAZINE 25 MG TAB PO SCH ×3 (08:09→21:12)
[2021-08-12] MEDS: glyBURIDE 2.5 MG TAB PO SCH (08:10)
[2021-08-12] MEDS: Allopurinol 100 MG TAB PO SCH (08:10)
[2021-08-12] MEDS: NIFEdipine XL 30 MG TAB PO SCH (08:11)
[2021-08-12] MEDS: Carvedilol 6.25 MG TAB PO SCH ×2 (08:12→16:26)
[2021-08-12] MEDS: Aspirin 81 mg Enteric Coated Tablet PO SCH (08:12)
[2021-08-12] MEDS: predniSONE 20 MG TAB PO SCH (08:13)
[2021-08-12] MEDS: tiZANidine HCl 4 MG TAB PO SCH ×2 (08:13→21:12)
[2021-08-13 04:16] VITALS: BMI 37.2
[2021-08-13] MEDS: glyBURIDE 2.5 MG TAB PO SCH (08:19)
[2021-08-13] MEDS: tiZANidine HCl 4 MG TAB PO SCH ×2 (08:59→20:52)
[2021-08-13] MEDS: NIFEdipine XL 30 MG TAB PO SCH (08:59)
[2021-08-13] MEDS: Allopurinol 100 MG TAB PO SCH (09:01)
[2021-08-13] MEDS: Carvedilol 6.25 MG TAB PO SCH ×2 (09:02→17:05)
[2021-08-13] MEDS: hydrALAZINE 25 MG TAB PO SCH ×3 (09:02→20:52)
[2021-08-13] MEDS: Furosemide 20 MG TAB PO SCH (09:03)
[2021-08-13] MEDS: predniSONE 20 MG TAB PO SCH (09:03)
[2021-08-13] MEDS: Aspirin 81 mg Enteric Coated Tablet PO SCH (09:03)
[2021-08-14] MEDS: hydrALAZINE 25 MG TAB PO SCH ×3 (08:17→20:09)
[2021-08-14] MEDS: NIFEdipine XL 30 MG TAB PO SCH (08:18)
[2021-08-14] MEDS: predniSONE 20 MG TAB PO SCH (08:19)
[2021-08-14] MEDS: Allopurinol 100 MG TAB PO SCH (08:19)
[2021-08-14] MEDS: Aspirin 81 mg Enteric Coated Tablet PO SCH (08:19)
[2021-08-14] MEDS: tiZANidine HCl 4 MG TAB PO SCH ×2 (08:20→20:10)
[2021-08-14] MEDS: Furosemide 20 MG TAB PO SCH (08:20)
[2021-08-14] MEDS: Carvedilol 6.25 MG TAB PO SCH ×2 (08:20→17:04)
[2021-08-14] MEDS: glyBURIDE 2.5 MG TAB PO SCH (08:29)
[2021-08-14] MEDS ORDERED: Losartan 25 MG TAB PO SCH (21:00)
[2021-08-15] MEDS: glyBURIDE 2.5 MG TAB PO SCH (07:54)
[2021-08-15] MEDS: Furosemide 20 MG TAB PO SCH (07:57)
[2021-08-15] MEDS: Carvedilol 6.25 MG TAB PO SCH (07:57)
[2021-08-15] MEDS: Aspirin 81 mg Enteric Coated Tablet PO SCH (07:58)
[2021-08-15] MEDS: hydrALAZINE 25 MG TAB PO SCH (07:58)
[2021-08-15] MEDS: NIFEdipine XL 30 MG TAB PO SCH (07:59)
[2021-08-15] MEDS: Allopurinol 100 MG TAB PO SCH (08:00)
[2021-08-15] MEDS: tiZANidine HCl 4 MG TAB PO SCH (08:00)
[2021-08-15] MEDS: predniSONE 20 MG TAB PO SCH (08:00)
[2021-08-15 08:06] VITALS: TEMP 98
[2021-08-15 16:09] VITALS: BP 142/64
[2021-08-15] MEDS ORDERED: Losartan Potassium 50 MG TAB PO SCH (21:00)
[2021-08-16] MEDS ORDERED: cloNIDine 0.3mg/24 Hour PATCH TD SCH (09:00)
[2021-08-16] MEDS ORDERED: Allopurinol 100 MG TAB PO SCH (09:00)
== END 2021-08-15 14:40 | disposition home or self-care (01) | DRG 947 ==
LOC: NAV ACUTE 15:14
PROVIDERS: ADMIT Internal Medicine; ATTEND Internal Medicine
DX: R53.81 Other malaise (principal); I50.33 Acute on chronic diastolic (congestive) heart failure; I13.0 Hypertensive heart and chronic kidney disease with heart failure and stage 1 through stage 4 chronic kidney disease, or unspecified chronic kidney disease; M10.9 Gout, unspecified; E78.5 Hyperlipidemia, unspecified; M19.90 Unspecified osteoarthritis, unspecified site; G47.33 Obstructive sleep apnea (adult) (pediatric); Z96.653 Presence of artificial knee joint, bilateral; N18.32 Chronic kidney disease, stage 3b; I87.2 Venous insufficiency (chronic) (peripheral); E66.9 Obesity, unspecified; E11.22 Type 2 diabetes mellitus with diabetic chronic kidney disease; E11.65 Type 2 diabetes mellitus with hyperglycemia; G89.29 Other chronic pain; Z68.36 Body mass index [BMI] 36.0-36.9, adult; Z90.49 Acquired absence of other specified parts of digestive tract; Z98.49 Cataract extraction status, unspecified eye; Z88.5 Allergy status to narcotic agent; Z88.0 Allergy status to penicillin; Z20.822 Contact with and (suspected) exposure to COVID-19
CPT/HCPCS: 36415; 80053; 85025; J7512; U0003; U0005

== ENCOUNTER 2022-07-16 16:18 | Emergency (ER) | payer MEDICARE, BC | END 2022-07-16 17:29 | disposition home or self-care (01) | LOC: NAV ERS 16:18 | DX: M79.662 Pain in left lower leg (principal); G89.29 Other chronic pain; I10 Essential (primary) hypertension; E66.9 Obesity, unspecified; Z87.891 Personal history of nicotine dependence | CPT/HCPCS: 99283 ==

== ENCOUNTER 2023-01-24 17:50 | Inpatient (IN) | payer MEDICARE ==
[2023-01-24] MEDS ORDERED: Guaifenesin DM 100-10/5 ML UDCUP PO PRN (20:13)
[2023-01-24] MEDS ORDERED: Benzonatate 100 MG CAP PO PRN (20:13)
[2023-01-24] MEDS ORDERED: Bisacodyl 10 MG SUPP PR PRN (20:13)
[2023-01-24] MEDS ORDERED: Benzocaine/Menthol 1 LOZ LOZ PO PRN (20:13)
[2023-01-24] MEDS ORDERED: Acetaminophen 650 MG Suppository PR PRN (20:13)
[2023-01-24] MEDS ORDERED: Sodium Chloride 0.65% Nasal 44 ML BOT EA NARE PRN (20:13)
[2023-01-24] MEDS ORDERED: Bisacodyl 5 MG TAB PO PRN (20:13)
[2023-01-24] MEDS ORDERED: Artificial Tear Sol 15 ML BOT EA EYE PRN (20:13)
[2023-01-24] MEDS ORDERED: Calcium Carbonate 500 MG ChewTAB PO PRN (20:13)
[2023-01-24] MEDS ORDERED: Senokot S 8.6-50 MG TAB PO PRN (20:13)
[2023-01-26] MEDS: Carvedilol 6.25 MG TAB PO SCH (18:38)
[2023-01-26] MEDS: tiZANidine HCl 4 MG TAB PO SCH (20:45)
[2023-01-26] MEDS: Atorvastatin Calcium 40 MG TAB PO SCH (20:45)
[2023-01-26] MEDS: Minoxidil 2.5 MG TAB PO SCH (23:59)
[2023-01-27] MEDS: Ferrous Sulfate 325 MG TAB PO SCH (07:19)
[2023-01-27] MEDS: Furosemide 40 MG TAB PO SCH (07:20)
[2023-01-27] MEDS: Carvedilol 6.25 MG TAB PO SCH ×2 (07:20→16:21)
[2023-01-27] MEDS: Isosorbide Mononitrate 20 MG TAB PO SCH (08:28)
[2023-01-27] MEDS: Clopidogrel Bisulfate 75 MG TAB PO SCH (08:28)
[2023-01-27] MEDS: Losartan 25 MG TAB PO SCH (08:28)
[2023-01-27] MEDS: Minoxidil 2.5 MG TAB PO SCH ×2 (08:28→21:20)
[2023-01-27] MEDS: tiZANidine HCl 4 MG TAB PO SCH ×2 (08:28→21:20)
[2023-01-27] MEDS: Acetaminophen 325 MG TAB PO PRN (13:43)
[2023-01-27] MEDS: Atorvastatin Calcium 40 MG TAB PO SCH (21:20)
[2023-01-28] MEDS: Isosorbide Mononitrate 20 MG TAB PO SCH (08:57)
[2023-01-28] MEDS: Carvedilol 6.25 MG TAB PO SCH ×2 (08:57→17:01)
[2023-01-28] MEDS: Acetaminophen/Codeine 30-300mg Tablet PO PRN (08:58)
[2023-01-28] MEDS: Clopidogrel Bisulfate 75 MG TAB PO SCH (08:59)
[2023-01-28] MEDS: Losartan 25 MG TAB PO SCH (08:59)
[2023-01-28] MEDS: tiZANidine HCl 4 MG TAB PO SCH ×2 (08:59→21:26)
[2023-01-28] MEDS: Ferrous Sulfate 325 MG TAB PO SCH (08:59)
[2023-01-28] MEDS: Furosemide 40 MG TAB PO SCH (09:00)
[2023-01-28] MEDS: Acetaminophen 325 MG TAB PO PRN ×2 (14:02→22:09)
[2023-01-28] MEDS: Minoxidil 2.5 MG TAB PO SCH ×2 (15:33→21:26)
[2023-01-28] MEDS: Atorvastatin Calcium 40 MG TAB PO SCH (21:26)
[2023-01-29 05:48] LABS: #Basophils 0.1 thou/uL (0.0-0.2); #Eosinphils 0.2 thou/uL (0.0-0.7); #Lymphocytes 1.4 thou/uL (1.20-3.40); #Monocytes 0.8 thou/uL (0.11-0.59); #Neutrophils 7.6 thou/uL (1.40-6.50); %Basophils 1.4 % (0.0-1.0); %Eosinophils 1.9 % (0.0-10.0); %Lymphocytes 13.4 % (21.0-51.0); %Monocytes 8.3 % (0.0-10.0); %Neutrophils 75.1 % (42.0-75.0); Hemoglobin 8.3 g/dL (12.0-16.0); Mean Corpuscular HGB CONC 30.4 g/dL (32.0-36.0); Mean Corpuscular Hemoglobin 29.7 pg (27.0-31.0); Mean Corpuscular Volume 97.8 fl (78.0-98.0); Mean Platelet Volume 5.9 fL (7.4-10.4); Platelet Count 260 10x3/uL (130-400); RBC Distribution Width 15.6 % (11.5-14.5); Red Blood Cell (RBC) Count 2.79 mill/uL (4.20-5.40); White Blood Cell (WBC) Count 10.1 10x3/uL (4.8-10.8)
[2023-01-29 06:00] LABS: Anion Gap 16 mmol/L (10-20); BUN (Urea Nitrogen) 74 mg/dL (9.8-20.1); Calc. Creatinine Clearance 29 mL/min (70-130); Calcium 9.1 mg/dL (7.8-10.44); Carbon Dioxide 32 mmol/L (23-31); Chloride 97 mmol/L (98-107); Estimated GFR 17; Glucose 114 mg/dL (83-110); Potassium 3.9 mmol/L (3.5-5.1); Sodium 141 mmol/L (136-145)
[2023-01-29] MEDS: Acetaminophen/Codeine 30-300mg Tablet PO PRN (08:23)
[2023-01-29] MEDS: Losartan 25 MG TAB PO SCH (08:28)
[2023-01-29] MEDS: Isosorbide Mononitrate 20 MG TAB PO SCH (08:28)
[2023-01-29] MEDS: Carvedilol 6.25 MG TAB PO SCH ×2 (08:29→17:36)
[2023-01-29] MEDS: Minoxidil 2.5 MG TAB PO SCH ×2 (08:30→21:04)
[2023-01-29] MEDS: Clopidogrel Bisulfate 75 MG TAB PO SCH (08:30)
[2023-01-29] MEDS: Furosemide 40 MG TAB PO SCH (08:30)
[2023-01-29] MEDS: Ferrous Sulfate 325 MG TAB PO SCH (08:30)
[2023-01-29] MEDS: tiZANidine HCl 4 MG TAB PO SCH ×2 (08:30→21:04)
[2023-01-29] MEDS: Atorvastatin Calcium 40 MG TAB PO SCH (21:04)
[2023-01-30] MEDS: Losartan 25 MG TAB PO SCH (07:57)
[2023-01-30] MEDS: Furosemide 40 MG TAB PO SCH (07:57)
[2023-01-30] MEDS: Clopidogrel Bisulfate 75 MG TAB PO SCH (07:57)
[2023-01-30] MEDS: Ferrous Sulfate 325 MG TAB PO SCH (07:57)
[2023-01-30] MEDS: Carvedilol 6.25 MG TAB PO SCH ×2 (07:57→16:39)
[2023-01-30] MEDS: Minoxidil 2.5 MG TAB PO SCH ×2 (07:57→20:37)
[2023-01-30] MEDS: tiZANidine HCl 4 MG TAB PO SCH ×2 (07:57→20:37)
[2023-01-30] MEDS: Isosorbide Mononitrate 20 MG TAB PO SCH (07:58)
[2023-01-30] MEDS: Acetaminophen 325 MG TAB PO PRN ×2 (09:22→13:59)
[2023-01-30] MEDS ORDERED: Carvedilol 6.25 MG TAB PO SCH ×2 (12:03→12:30)
[2023-01-30] MEDS ORDERED: Losartan 25 MG TAB PO SCH ×2 (12:04→12:30)
[2023-01-30] MEDS: Atorvastatin Calcium 40 MG TAB PO SCH (20:37)
[2023-01-31] MEDS: Furosemide 40 MG TAB PO SCH (07:40)
[2023-01-31] MEDS: Carvedilol 6.25 MG TAB PO SCH ×2 (07:40→17:06)
[2023-01-31] MEDS: Ferrous Sulfate 325 MG TAB PO SCH (07:40)
[2023-01-31] MEDS ORDERED: Acetaminophen 500 MG TAB PO PRN (07:45)
[2023-01-31] MEDS: Clopidogrel Bisulfate 75 MG TAB PO SCH (09:08)
[2023-01-31] MEDS: Minoxidil 2.5 MG TAB PO SCH ×2 (09:08→20:56)
[2023-01-31] MEDS: Isosorbide Mononitrate 20 MG TAB PO SCH (09:08)
[2023-01-31] MEDS: tiZANidine HCl 4 MG TAB PO SCH ×2 (09:08→20:56)
[2023-01-31] MEDS: Losartan 25 MG TAB PO SCH (09:09)
[2023-01-31] MEDS: cefTRIAXone\\ROCEPHIN 1 GM in Sodium Chloride 0.9% 100 ML IVPB SCH (13:59)
[2023-01-31] MEDS: Acetaminophen 325 MG TAB PO PRN ×2 (14:01→20:56)
[2023-01-31] MEDS: Atorvastatin Calcium 40 MG TAB PO SCH (20:56)
[2023-02-01 05:56] LABS: #Basophils 0.1 thou/uL (0.0-0.2); #Eosinphils 0.1 thou/uL (0.0-0.7); #Lymphocytes 1.2 thou/uL (1.20-3.40); #Monocytes 0.7 thou/uL (0.11-0.59); #Neutrophils 8.3 thou/uL (1.40-6.50); %Basophils 0.8 % (0.0-1.0); %Eosinophils 1.2 % (0.0-10.0); %Lymphocytes 11.3 % (21.0-51.0); %Monocytes 6.8 % (0.0-10.0); Hemoglobin 7.8 g/dL (12.0-16.0); Mean Corpuscular HGB CONC 30.5 g/dL (32.0-36.0); Mean Corpuscular Hemoglobin 29.5 pg (27.0-31.0); Mean Corpuscular Volume 96.9 fl (78.0-98.0); Mean Platelet Volume 5.6 fL (7.4-10.4); Platelet Count 328 10x3/uL (130-400); Red Blood Cell (RBC) Count 2.62 mill/uL (4.20-5.40); White Blood Cell (WBC) Count 10.4 10x3/uL (4.8-10.8)
[2023-02-01 06:15] LABS: Anion Gap 15 mmol/L (10-20); BUN (Urea Nitrogen) 87 mg/dL (9.8-20.1); Calc. Creatinine Clearance 26 mL/min (70-130); Calcium 9.1 mg/dL (7.8-10.44); Carbon Dioxide 33 mmol/L (23-31); Chloride 94 mmol/L (98-107); Estimated GFR 15; Glucose 127 mg/dL (83-110); Potassium 4.2 mmol/L (3.5-5.1); Sodium 138 mmol/L (136-145)
[2023-02-01] MEDS: Isosorbide Mononitrate 20 MG TAB PO SCH (07:32)
[2023-02-01] MEDS: Ferrous Sulfate 325 MG TAB PO SCH (07:32)
[2023-02-01] MEDS: Furosemide 40 MG TAB PO SCH (07:33)
[2023-02-01] MEDS: tiZANidine HCl 4 MG TAB PO SCH ×2 (07:33→21:11)
[2023-02-01] MEDS: Carvedilol 6.25 MG TAB PO SCH ×2 (07:33→17:00)
[2023-02-01] MEDS: Clopidogrel Bisulfate 75 MG TAB PO SCH (07:33)
[2023-02-01] MEDS: Minoxidil 2.5 MG TAB PO SCH ×2 (07:34→21:11)
[2023-02-01] MEDS: Losartan 25 MG TAB PO SCH (07:34)
[2023-02-01] MEDS: Acetaminophen 325 MG TAB PO PRN ×3 (08:05→21:18)
[2023-02-01] MEDS: cefTRIAXone\\ROCEPHIN 1 GM in Sodium Chloride 0.9% 100 ML IVPB SCH (13:42)
[2023-02-01] MEDS: Atorvastatin Calcium 40 MG TAB PO SCH (21:11)
[2023-02-02 06:39] LABS: #Basophils 0.1 thou/uL (0.0-0.2); #Eosinphils 0.1 thou/uL (0.0-0.7); #Lymphocytes 1.5 thou/uL (1.20-3.40); #Monocytes 0.7 thou/uL (0.11-0.59); #Neutrophils 8.4 thou/uL (1.40-6.50); %Basophils 1.3 % (0.0-1.0); %Lymphocytes 13.6 % (21.0-51.0); %Monocytes 6.2 % (0.0-10.0); %Neutrophils 77.9 % (42.0-75.0); Hemoglobin 7.7 g/dL (12.0-16.0); Mean Corpuscular HGB CONC 30.3 g/dL (32.0-36.0); Mean Corpuscular Hemoglobin 29.5 pg (27.0-31.0); Mean Corpuscular Volume 97.2 fl (78.0-98.0); Mean Platelet Volume 5.4 fL (7.4-10.4); Platelet Count 323 10x3/uL (130-400); RBC Distribution Width 14.7 % (11.5-14.5); Red Blood Cell (RBC) Count 2.63 mill/uL (4.20-5.40); White Blood Cell (WBC) Count 10.8 10x3/uL (4.8-10.8)
[2023-02-02 06:47] LABS: Anion Gap 17 mmol/L (10-20); BUN (Urea Nitrogen) 97 mg/dL (9.8-20.1); Calc. Creatinine Clearance 25 mL/min (70-130); Calcium 9.1 mg/dL (7.8-10.44); Carbon Dioxide 31 mmol/L (23-31); Chloride 93 mmol/L (98-107); Estimated GFR 14; Glucose 113 mg/dL (83-110); Potassium 4.1 mmol/L (3.5-5.1); Sodium 137 mmol/L (136-145)
[2023-02-02] MEDS: Furosemide 40 MG TAB PO SCH (07:40)
[2023-02-02] MEDS: Acetaminophen 325 MG TAB PO PRN ×3 (07:52→17:13)
[2023-02-02] MEDS: Isosorbide Mononitrate 20 MG TAB PO SCH (07:54)
[2023-02-02] MEDS: Carvedilol 6.25 MG TAB PO SCH ×2 (07:56→16:59)
[2023-02-02] MEDS: Clopidogrel Bisulfate 75 MG TAB PO SCH (07:57)
[2023-02-02] MEDS: Ferrous Sulfate 325 MG TAB PO SCH (07:57)
[2023-02-02] MEDS: Minoxidil 2.5 MG TAB PO SCH ×2 (07:58→20:43)
[2023-02-02] MEDS ORDERED: Furosemide 20 MG/2 ML VIAL SLOW IVP SCH (10:00)
[2023-02-02] MEDS: Diclofenac 1% 100 GM GEL TP PRN ×2 (11:01→20:44)
[2023-02-02] MEDS: cefTRIAXone\\ROCEPHIN 1 GM in Sodium Chloride 0.9% 100 ML IVPB SCH (12:48)
[2023-02-02] MEDS: Atorvastatin Calcium 40 MG TAB PO SCH (20:38)
[2023-02-02] MEDS: tiZANidine HCl 4 MG TAB PO SCH (20:38)
[2023-02-03 06:44] LABS: Anion Gap 16 mmol/L (10-20); BUN (Urea Nitrogen) 95 mg/dL (9.8-20.1); Calc. Creatinine Clearance 26 mL/min (70-130); Calcium 8.7 mg/dL (7.8-10.44); Carbon Dioxide 32 mmol/L (23-31); Chloride 94 mmol/L (98-107); Estimated GFR 14; Glucose 104 mg/dL (83-110); Potassium 3.9 mmol/L (3.5-5.1); Sodium 138 mmol/L (136-145)
[2023-02-03] MEDS: Furosemide 40 MG TAB PO SCH (08:44)
[2023-02-03] MEDS: Carvedilol 6.25 MG TAB PO SCH ×2 (08:45→17:54)
[2023-02-03] MEDS: Clopidogrel Bisulfate 75 MG TAB PO SCH (08:45)
[2023-02-03] MEDS: Isosorbide Mononitrate 20 MG TAB PO SCH (08:45)
[2023-02-03] MEDS: Minoxidil 2.5 MG TAB PO SCH ×2 (08:45→23:18)
[2023-02-03] MEDS: Ferrous Sulfate 325 MG TAB PO SCH (08:45)
[2023-02-03] MEDS: Acetaminophen 325 MG TAB PO PRN ×3 (08:51→20:41)
[2023-02-03] MEDS: cefTRIAXone\\ROCEPHIN 1 GM in Sodium Chloride 0.9% 100 ML IVPB SCH (14:22)
[2023-02-03] MEDS: Atorvastatin Calcium 40 MG TAB PO SCH (20:40)
[2023-02-03] MEDS: tiZANidine HCl 4 MG TAB PO SCH (20:40)
[2023-02-04] MEDS: Furosemide 40 MG TAB PO SCH (07:08)
[2023-02-04] MEDS: Clopidogrel Bisulfate 75 MG TAB PO SCH (07:11)
[2023-02-04] MEDS: Carvedilol 6.25 MG TAB PO SCH ×2 (07:12→18:09)
[2023-02-04] MEDS: Ferrous Sulfate 325 MG TAB PO SCH (07:13)
[2023-02-04] MEDS: Isosorbide Mononitrate 20 MG TAB PO SCH (07:13)
[2023-02-04] MEDS: Minoxidil 2.5 MG TAB PO SCH ×2 (08:19→21:39)
[2023-02-04] MEDS: Acetaminophen 500 MG TAB PO PRN (10:16)
[2023-02-04] MEDS: cefTRIAXone\\ROCEPHIN 1 GM in Sodium Chloride 0.9% 100 ML IVPB SCH (13:07)
[2023-02-04] MEDS: tiZANidine HCl 4 MG TAB PO SCH (21:39)
[2023-02-04] MEDS: Acetaminophen 325 MG TAB PO PRN (21:55)
[2023-02-04] MEDS: Atorvastatin Calcium 40 MG TAB PO SCH (21:56)
[2023-02-05 06:04] LABS: #Basophils 0.1 thou/uL (0.0-0.2); #Eosinphils 0.2 thou/uL (0.0-0.7); #Lymphocytes 1.5 thou/uL (1.20-3.40); #Monocytes 0.6 thou/uL (0.11-0.59); #Neutrophils 6.9 thou/uL (1.40-6.50); %Basophils 1.2 % (0.0-1.0); %Eosinophils 2.3 % (0.0-10.0); %Monocytes 6.3 % (0.0-10.0); %Neutrophils 74.2 % (42.0-75.0); Hemoglobin 7.4 g/dL (12.0-16.0); Mean Corpuscular HGB CONC 30.2 g/dL (32.0-36.0); Mean Corpuscular Hemoglobin 29.3 pg (27.0-31.0); Mean Platelet Volume 5.2 fL (7.4-10.4); Platelet Count 325 10x3/uL (130-400); RBC Distribution Width 15.1 % (11.5-14.5); Red Blood Cell (RBC) Count 2.52 mill/uL (4.20-5.40); White Blood Cell (WBC) Count 9.4 10x3/uL (4.8-10.8)
[2023-02-05 06:18] LABS: Anion Gap 16 mmol/L (10-20); BUN (Urea Nitrogen) 103 mg/dL (9.8-20.1); Calc. Creatinine Clearance 28 mL/min (70-130); Calcium 9.2 mg/dL (7.8-10.44); Carbon Dioxide 31 mmol/L (23-31); Chloride 95 mmol/L (98-107); Estimated GFR 15; Glucose 104 mg/dL (83-110); Potassium 4.2 mmol/L (3.5-5.1); Sodium 138 mmol/L (136-145)
[2023-02-05] MEDS: Furosemide 40 MG TAB PO SCH (08:14)
[2023-02-05] MEDS: Ferrous Sulfate 325 MG TAB PO SCH (08:14)
[2023-02-05] MEDS: Carvedilol 6.25 MG TAB PO SCH ×2 (08:14→17:31)
[2023-02-05] MEDS: Clopidogrel Bisulfate 75 MG TAB PO SCH (08:15)
[2023-02-05] MEDS: Acetaminophen 325 MG TAB PO PRN ×2 (08:15→23:51)
[2023-02-05] MEDS: Isosorbide Mononitrate 20 MG TAB PO SCH (08:15)
[2023-02-05] MEDS: Minoxidil 2.5 MG TAB PO SCH ×2 (08:16→20:42)
[2023-02-05] MEDS: cefTRIAXone\\ROCEPHIN 1 GM in Sodium Chloride 0.9% 100 ML IVPB SCH (13:14)
[2023-02-05] MEDS: Acetaminophen 500 MG TAB PO PRN (14:09)
[2023-02-05] MEDS: Atorvastatin Calcium 40 MG TAB PO SCH (20:42)
[2023-02-05] MEDS: tiZANidine HCl 4 MG TAB PO SCH (20:42)
[2023-02-06 06:23] LABS: Anion Gap 15 mmol/L (10-20); BUN (Urea Nitrogen) 103 mg/dL (9.8-20.1); Calc. Creatinine Clearance 29 mL/min (70-130); Calcium 9.5 mg/dL (7.8-10.44); Carbon Dioxide 32 mmol/L (23-31); Chloride 95 mmol/L (98-107); Estimated GFR 17; Glucose 108 mg/dL (83-110); Potassium 4.1 mmol/L (3.5-5.1); Sodium 138 mmol/L (136-145)
[2023-02-06 06:28] LABS: #Basophils 0.1 thou/uL (0.0-0.2); #Eosinphils 0.2 thou/uL (0.0-0.7); #Lymphocytes 1.1 thou/uL (1.20-3.40); #Monocytes 0.5 thou/uL (0.11-0.59); #Neutrophils 6.4 thou/uL (1.40-6.50); %Basophils 1.6 % (0.0-1.0); %Eosinophils 2.8 % (0.0-10.0); %Monocytes 5.9 % (0.0-10.0); %Neutrophils 76.8 % (42.0-75.0); Hemoglobin 7.6 g/dL (12.0-16.0); Mean Corpuscular HGB CONC 30.9 g/dL (32.0-36.0); Mean Corpuscular Hemoglobin 29.6 pg (27.0-31.0); Mean Corpuscular Volume 95.7 fl (78.0-98.0); Mean Platelet Volume 5.1 fL (7.4-10.4); Platelet Count 338 10x3/uL (130-400); RBC Distribution Width 14.6 % (11.5-14.5); Red Blood Cell (RBC) Count 2.56 mill/uL (4.20-5.40); White Blood Cell (WBC) Count 8.3 10x3/uL (4.8-10.8)
[2023-02-06] MEDS: Acetaminophen 500 MG TAB PO PRN (08:29)
[2023-02-06] MEDS: Clopidogrel Bisulfate 75 MG TAB PO SCH (08:30)
[2023-02-06] MEDS: Carvedilol 6.25 MG TAB PO SCH ×2 (08:30→16:04)
[2023-02-06] MEDS: Furosemide 40 MG TAB PO SCH (08:30)
[2023-02-06] MEDS: Ferrous Sulfate 325 MG TAB PO SCH (08:30)
[2023-02-06] MEDS: Isosorbide Mononitrate 20 MG TAB PO SCH (08:30)
[2023-02-06] MEDS: Minoxidil 2.5 MG TAB PO SCH ×2 (08:31→20:43)
[2023-02-06] MEDS: cefTRIAXone\\ROCEPHIN 1 GM in Sodium Chloride 0.9% 100 ML IVPB SCH (13:01)
[2023-02-06] MEDS: metroNIDAZOLE 500 MG TAB PO SCH ×2 (15:38→20:43)
[2023-02-06] MEDS: Acetaminophen 325 MG TAB PO PRN (15:41)
[2023-02-06] MEDS ORDERED: traMADol HCl 50 MG TAB PO SCH (17:30)
[2023-02-06] MEDS: tiZANidine HCl 4 MG TAB PO SCH (20:43)
[2023-02-06] MEDS: Atorvastatin Calcium 40 MG TAB PO SCH (20:47)
[2023-02-07] MEDS: Acetaminophen 325 MG TAB PO PRN ×3 (00:58→21:33)
[2023-02-07 05:56] LABS: #Basophils 0.1 thou/uL (0.0-0.2); #Eosinphils 0.1 thou/uL (0.0-0.7); #Monocytes 0.5 thou/uL (0.11-0.59); #Neutrophils 5.2 thou/uL (1.40-6.50); %Basophils 1.2 % (0.0-1.0); %Eosinophils 2.1 % (0.0-10.0); %Lymphocytes 15.2 % (21.0-51.0); %Monocytes 6.5 % (0.0-10.0); Hemoglobin 7.5 g/dL (12.0-16.0); Mean Corpuscular HGB CONC 31.4 g/dL (32.0-36.0); Mean Corpuscular Hemoglobin 29.4 pg (27.0-31.0); Mean Corpuscular Volume 93.8 fl (78.0-98.0); Mean Platelet Volume 5.1 fL (7.4-10.4); Platelet Count 330 10x3/uL (130-400); RBC Distribution Width 14.4 % (11.5-14.5); Red Blood Cell (RBC) Count 2.54 mill/uL (4.20-5.40); White Blood Cell (WBC) Count 6.9 10x3/uL (4.8-10.8)
[2023-02-07 06:07] LABS: Anion Gap 16 mmol/L (10-20); BUN (Urea Nitrogen) 104 mg/dL (9.8-20.1); CRP (Inflammatory) 14.66 mg/dL (= or < 0.5); Calc. Creatinine Clearance 31 mL/min (70-130); Calcium 9.3 mg/dL (7.8-10.44); Carbon Dioxide 31 mmol/L (23-31); Chloride 95 mmol/L (98-107); Estimated GFR 18; Glucose 92 mg/dL (83-110); Sodium 138 mmol/L (136-145)
[2023-02-07] MEDS: Isosorbide Mononitrate 20 MG TAB PO SCH (07:57)
[2023-02-07] MEDS: Ferrous Sulfate 325 MG TAB PO SCH (07:57)
[2023-02-07] MEDS: Carvedilol 25 MG TAB PO SCH ×2 (07:57→17:13)
[2023-02-07] MEDS: Minoxidil 2.5 MG TAB PO SCH ×2 (07:58→21:32)
[2023-02-07] MEDS: Clopidogrel Bisulfate 75 MG TAB PO SCH (07:58)
[2023-02-07] MEDS: metroNIDAZOLE 500 MG TAB PO SCH ×3 (07:58→21:32)
[2023-02-07] MEDS: Furosemide 40 MG TAB PO SCH (07:59)
[2023-02-07] MEDS: Ondansetron ODT 4 MG TAB PO PRN (10:04)
[2023-02-07] MEDS: traMADol HCl 50 MG TAB PO PRN ×3 (10:55→23:18)
[2023-02-07] MEDS: cefTRIAXone\\ROCEPHIN 1 GM in Sodium Chloride 0.9% 100 ML IVPB SCH (12:25)
[2023-02-07] MEDS ORDERED: cefTRIAXone\\ROCEPHIN 1 GM in Sodium Chloride 0.9% 100 ML IVPB SCH (20:30)
[2023-02-07] MEDS: Atorvastatin Calcium 40 MG TAB PO SCH (21:31)
[2023-02-07] MEDS: tiZANidine HCl 4 MG TAB PO SCH (21:32)
[2023-02-08] MEDS: Furosemide 40 MG TAB PO SCH (07:39)
[2023-02-08] MEDS: Isosorbide Mononitrate 20 MG TAB PO SCH (08:00)
[2023-02-08] MEDS: Minoxidil 2.5 MG TAB PO SCH ×2 (08:00→21:16)
[2023-02-08] MEDS: Clopidogrel Bisulfate 75 MG TAB PO SCH (08:00)
[2023-02-08] MEDS: Ferrous Sulfate 325 MG TAB PO SCH (08:00)
[2023-02-08] MEDS: metroNIDAZOLE 500 MG TAB PO SCH ×3 (08:01→21:16)
[2023-02-08] MEDS: Carvedilol 25 MG TAB PO SCH ×2 (08:01→17:17)
[2023-02-08] MEDS: traMADol HCl 50 MG TAB PO PRN ×2 (08:05→21:54)
[2023-02-08] MEDS: cefTRIAXone\\ROCEPHIN 1 GM in Sodium Chloride 0.9% 100 ML IVPB SCH (12:15)
[2023-02-08] MEDS: Acetaminophen 325 MG TAB PO PRN (14:42)
[2023-02-08] MEDS: Atorvastatin Calcium 40 MG TAB PO SCH (21:16)
[2023-02-08] MEDS: tiZANidine HCl 4 MG TAB PO SCH (21:16)
[2023-02-09 05:24] LABS: #Eosinphils 0.2 thou/uL (0.0-0.7); #Lymphocytes 1.1 thou/uL (1.20-3.40); #Monocytes 0.5 thou/uL (0.11-0.59); #Neutrophils 5.3 thou/uL (1.40-6.50); %Basophils 0.6 % (0.0-1.0); %Eosinophils 2.6 % (0.0-10.0); %Lymphocytes 15.1 % (21.0-51.0); %Monocytes 7.4 % (0.0-10.0); %Neutrophils 74.2 % (42.0-75.0); Hemoglobin 7.7 g/dL (12.0-16.0); Mean Corpuscular HGB CONC 30.9 g/dL (32.0-36.0); Mean Corpuscular Hemoglobin 29.5 pg (27.0-31.0); Mean Corpuscular Volume 95.4 fl (78.0-98.0); Platelet Count 318 10x3/uL (130-400); RBC Distribution Width 14.9 % (11.5-14.5); Red Blood Cell (RBC) Count 2.61 mill/uL (4.20-5.40); White Blood Cell (WBC) Count 7.2 10x3/uL (4.8-10.8)
[2023-02-09 05:47] LABS: Anion Gap 15 mmol/L (10-20); BUN (Urea Nitrogen) 89 mg/dL (9.8-20.1); Calc. Creatinine Clearance 31 mL/min (70-130); Calcium 9.3 mg/dL (7.8-10.44); Carbon Dioxide 33 mmol/L (23-31); Chloride 96 mmol/L (98-107); Estimated GFR 18; Glucose 83 mg/dL (83-110); Potassium 4.1 mmol/L (3.5-5.1); Sodium 140 mmol/L (136-145)
[2023-02-09] MEDS: Acetaminophen 325 MG TAB PO PRN ×2 (08:05→21:09)
[2023-02-09] MEDS: metroNIDAZOLE 500 MG TAB PO SCH ×3 (08:06→21:04)
[2023-02-09] MEDS: Isosorbide Mononitrate 20 MG TAB PO SCH (08:06)
[2023-02-09] MEDS: Minoxidil 2.5 MG TAB PO SCH ×2 (08:07→21:02)
[2023-02-09] MEDS: Carvedilol 25 MG TAB PO SCH ×2 (08:07→16:39)
[2023-02-09] MEDS: Ferrous Sulfate 325 MG TAB PO SCH (08:07)
[2023-02-09] MEDS: Furosemide 40 MG TAB PO SCH (08:07)
[2023-02-09] MEDS: Clopidogrel Bisulfate 75 MG TAB PO SCH (08:07)
[2023-02-09] MEDS: cefTRIAXone\\ROCEPHIN 1 GM in Sodium Chloride 0.9% 100 ML IVPB SCH (12:59)
[2023-02-09] MEDS: Atorvastatin Calcium 40 MG TAB PO SCH (21:04)
[2023-02-09] MEDS: Ondansetron ODT 4 MG TAB PO PRN (21:04)
[2023-02-09] MEDS: tiZANidine HCl 4 MG TAB PO SCH (21:09)
[2023-02-10] MEDS: traMADol HCl 50 MG TAB PO PRN ×2 (06:10→16:44)
[2023-02-10] MEDS: Isosorbide Mononitrate 20 MG TAB PO SCH (08:02)
[2023-02-10] MEDS: metroNIDAZOLE 500 MG TAB PO SCH ×3 (08:02→21:37)
[2023-02-10] MEDS: Furosemide 40 MG TAB PO SCH (08:02)
[2023-02-10] MEDS: Clopidogrel Bisulfate 75 MG TAB PO SCH (08:02)
[2023-02-10] MEDS: Carvedilol 25 MG TAB PO SCH ×2 (08:02→16:44)
[2023-02-10] MEDS: Minoxidil 2.5 MG TAB PO SCH ×2 (08:02→20:54)
[2023-02-10] MEDS: Ferrous Sulfate 325 MG TAB PO SCH (08:02)
[2023-02-10] MEDS: cefTRIAXone\\ROCEPHIN 1 GM in Sodium Chloride 0.9% 100 ML IVPB SCH (12:25)
[2023-02-10] MEDS: Acetaminophen 500 MG TAB PO PRN (13:30)
[2023-02-10] MEDS: Atorvastatin Calcium 40 MG TAB PO SCH (20:54)
[2023-02-10] MEDS: Acetaminophen 325 MG TAB PO PRN (20:54)
[2023-02-10] MEDS: tiZANidine HCl 4 MG TAB PO SCH (20:55)
[2023-02-11 05:57] LABS: #Basophils 0.1 thou/uL (0.0-0.2); #Eosinphils 0.1 thou/uL (0.0-0.7); #Lymphocytes 1.3 thou/uL (1.20-3.40); #Monocytes 0.6 thou/uL (0.11-0.59); #Neutrophils 5.8 thou/uL (1.40-6.50); %Basophils 1.5 % (0.0-1.0); %Eosinophils 1.3 % (0.0-10.0); %Monocytes 7.4 % (0.0-10.0); %Neutrophils 72.8 % (42.0-75.0); Hemoglobin 7.1 g/dL (12.0-16.0); Mean Corpuscular HGB CONC 30.1 g/dL (32.0-36.0); Mean Corpuscular Hemoglobin 29.2 pg (27.0-31.0); Mean Platelet Volume 4.9 fL (7.4-10.4); Platelet Count 290 10x3/uL (130-400); RBC Distribution Width 15.7 % (11.5-14.5); Red Blood Cell (RBC) Count 2.43 mill/uL (4.20-5.40); White Blood Cell (WBC) Count 7.9 10x3/uL (4.8-10.8)
[2023-02-11 06:12] LABS: Anion Gap 13 mmol/L (10-20); BUN (Urea Nitrogen) 79 mg/dL (9.8-20.1); Calc. Creatinine Clearance 28 mL/min (70-130); Calcium 8.6 mg/dL (7.8-10.44); Carbon Dioxide 33 mmol/L (23-31); Chloride 97 mmol/L (98-107); Estimated GFR 17; Glucose 92 mg/dL (83-110); Potassium 3.5 mmol/L (3.5-5.1); Sodium 139 mmol/L (136-145)
[2023-02-11] MEDS: Isosorbide Mononitrate 20 MG TAB PO SCH (08:08)
[2023-02-11] MEDS: Clopidogrel Bisulfate 75 MG TAB PO SCH (08:09)
[2023-02-11] MEDS: Minoxidil 2.5 MG TAB PO SCH ×2 (08:09→20:58)
[2023-02-11] MEDS: Ferrous Sulfate 325 MG TAB PO SCH (08:09)
[2023-02-11] MEDS: Carvedilol 25 MG TAB PO SCH ×2 (08:09→17:14)
[2023-02-11] MEDS: metroNIDAZOLE 500 MG TAB PO SCH ×3 (08:09→20:58)
[2023-02-11] MEDS: traMADol HCl 50 MG TAB PO PRN ×2 (09:02→18:16)
[2023-02-11] MEDS: Ondansetron ODT 4 MG TAB PO PRN (11:46)
[2023-02-11] MEDS: Furosemide 40 MG TAB PO SCH (11:46)
[2023-02-11] MEDS: cefTRIAXone\\ROCEPHIN 1 GM in Sodium Chloride 0.9% 100 ML IVPB SCH (11:47)
[2023-02-11] MEDS: Acetaminophen 500 MG TAB PO PRN (12:55)
[2023-02-11] MEDS: Atorvastatin Calcium 40 MG TAB PO SCH (20:58)
[2023-02-11] MEDS: tiZANidine HCl 4 MG TAB PO SCH (20:58)
[2023-02-12 06:02] LABS: #Basophils 0.1 thou/uL (0.0-0.2); #Eosinphils 0.1 thou/uL (0.0-0.7); #Lymphocytes 1.4 thou/uL (1.20-3.40); #Monocytes 0.6 thou/uL (0.11-0.59); #Neutrophils 5.2 thou/uL (1.40-6.50); %Basophils 1.4 % (0.0-1.0); %Eosinophils 1.6 % (0.0-10.0); %Lymphocytes 18.6 % (21.0-51.0); %Monocytes 7.7 % (0.0-10.0); %Neutrophils 70.7 % (42.0-75.0); Mean Corpuscular HGB CONC 30.5 g/dL (32.0-36.0); Mean Platelet Volume 4.8 fL (7.4-10.4); Platelet Count 290 10x3/uL (130-400); RBC Distribution Width 15.2 % (11.5-14.5); Red Blood Cell (RBC) Count 2.41 mill/uL (4.20-5.40); White Blood Cell (WBC) Count 7.4 10x3/uL (4.8-10.8)
[2023-02-12 06:09] LABS: Anion Gap 13 mmol/L (10-20); BUN (Urea Nitrogen) 73 mg/dL (9.8-20.1); Calc. Creatinine Clearance 27 mL/min (70-130); Calcium 8.5 mg/dL (7.8-10.44); Carbon Dioxide 33 mmol/L (23-31); Chloride 99 mmol/L (98-107); Estimated GFR 16; Glucose 99 mg/dL (83-110); Potassium 3.6 mmol/L (3.5-5.1); Sodium 141 mmol/L (136-145)
[2023-02-12] MEDS: traMADol HCl 50 MG TAB PO PRN (06:42)
[2023-02-12] MEDS: Minoxidil 2.5 MG TAB PO SCH ×2 (08:41→20:39)
[2023-02-12] MEDS: metroNIDAZOLE 500 MG TAB PO SCH ×3 (08:41→20:39)
[2023-02-12] MEDS: Ferrous Sulfate 325 MG TAB PO SCH (08:42)
[2023-02-12] MEDS: Isosorbide Mononitrate 20 MG TAB PO SCH (08:42)
[2023-02-12] MEDS: Clopidogrel Bisulfate 75 MG TAB PO SCH (08:42)
[2023-02-12] MEDS: Furosemide 40 MG TAB PO SCH (08:42)
[2023-02-12] MEDS: Carvedilol 25 MG TAB PO SCH ×2 (08:42→17:37)
[2023-02-12] MEDS: cefTRIAXone\\ROCEPHIN 1 GM in Sodium Chloride 0.9% 100 ML IVPB SCH (11:42)
[2023-02-12] MEDS: Atorvastatin Calcium 40 MG TAB PO SCH (20:39)
[2023-02-12] MEDS: tiZANidine HCl 4 MG TAB PO SCH (20:39)
[2023-02-12] MEDS: Acetaminophen 325 MG TAB PO PRN (20:43)
[2023-02-13] MEDS: Acetaminophen 325 MG TAB PO PRN (04:09)
[2023-02-13 06:04] LABS: #Basophils 0.1 thou/uL (0.0-0.2); #Eosinphils 0.2 thou/uL (0.0-0.7); #Lymphocytes 1.3 thou/uL (1.20-3.40); #Monocytes 0.6 thou/uL (0.11-0.59); #Neutrophils 5.3 thou/uL (1.40-6.50); %Eosinophils 2.2 % (0.0-10.0); %Monocytes 7.4 % (0.0-10.0); %Neutrophils 71.4 % (42.0-75.0); Hemoglobin 7.6 g/dL (12.0-16.0); Mean Corpuscular Hemoglobin 29.6 pg (27.0-31.0); Mean Corpuscular Volume 95.4 fl (78.0-98.0); Mean Platelet Volume 4.9 fL (7.4-10.4); Platelet Count 300 10x3/uL (130-400); RBC Distribution Width 15.4 % (11.5-14.5); Red Blood Cell (RBC) Count 2.56 mill/uL (4.20-5.40); White Blood Cell (WBC) Count 7.4 10x3/uL (4.8-10.8)
[2023-02-13 06:18] LABS: Anion Gap 14 mmol/L (10-20); BUN (Urea Nitrogen) 68 mg/dL (9.8-20.1); Calc. Creatinine Clearance 26 mL/min (70-130); Calcium 8.7 mg/dL (7.8-10.44); Carbon Dioxide 31 mmol/L (23-31); Chloride 99 mmol/L (98-107); Estimated GFR 16; Glucose 90 mg/dL (83-110); Potassium 3.7 mmol/L (3.5-5.1); Sodium 140 mmol/L (136-145)
[2023-02-13] MEDS: Carvedilol 25 MG TAB PO SCH ×2 (08:56→17:17)
[2023-02-13] MEDS: Isosorbide Mononitrate 20 MG TAB PO SCH (08:56)
[2023-02-13] MEDS: Clopidogrel Bisulfate 75 MG TAB PO SCH (08:56)
[2023-02-13] MEDS: metroNIDAZOLE 500 MG TAB PO SCH ×3 (08:57→20:33)
[2023-02-13] MEDS: Ferrous Sulfate 325 MG TAB PO SCH (08:57)
[2023-02-13] MEDS: Furosemide 40 MG TAB PO SCH (08:57)
[2023-02-13] MEDS: traMADol HCl 50 MG TAB PO PRN ×2 (08:57→20:33)
[2023-02-13] MEDS: Minoxidil 2.5 MG TAB PO SCH ×2 (08:57→20:32)
[2023-02-13] MEDS: cefTRIAXone\\ROCEPHIN 1 GM in Sodium Chloride 0.9% 100 ML IVPB SCH (11:12)
[2023-02-13] MEDS ORDERED: Fluconazole 100 MG TAB PO SCH (15:15)
[2023-02-13] MEDS: Ondansetron ODT 4 MG TAB PO PRN (20:33)
[2023-02-13] MEDS: Atorvastatin Calcium 40 MG TAB PO SCH (20:36)
[2023-02-13] MEDS: tiZANidine HCl 4 MG TAB PO SCH (20:36)
[2023-02-14 06:05] LABS: #Basophils 0.1 thou/uL (0.0-0.2); #Eosinphils 0.1 thou/uL (0.0-0.7); #Lymphocytes 1.5 thou/uL (1.20-3.40); #Monocytes 0.5 thou/uL (0.11-0.59); #Neutrophils 5.2 thou/uL (1.40-6.50); %Basophils 1.2 % (0.0-1.0); %Eosinophils 1.3 % (0.0-10.0); %Lymphocytes 20.9 % (21.0-51.0); %Monocytes 6.7 % (0.0-10.0); %Neutrophils 69.9 % (42.0-75.0); Hemoglobin 7.1 g/dL (12.0-16.0); Mean Corpuscular Hemoglobin 29.1 pg (27.0-31.0); Mean Corpuscular Volume 97.1 fl (78.0-98.0); Mean Platelet Volume 4.9 fL (7.4-10.4); Platelet Count 302 10x3/uL (130-400); RBC Distribution Width 15.9 % (11.5-14.5); Red Blood Cell (RBC) Count 2.43 mill/uL (4.20-5.40); White Blood Cell (WBC) Count 7.4 10x3/uL (4.8-10.8)
[2023-02-14 06:27] LABS: Anion Gap 15 mmol/L (10-20); BUN (Urea Nitrogen) 64 mg/dL (9.8-20.1); Calc. Creatinine Clearance 26 mL/min (70-130); Calcium 8.6 mg/dL (7.8-10.44); Carbon Dioxide 31 mmol/L (23-31); Chloride 99 mmol/L (98-107); Estimated GFR 16; Glucose 93 mg/dL (83-110); Potassium 3.8 mmol/L (3.5-5.1); Sodium 141 mmol/L (136-145)
[2023-02-14] MEDS: Furosemide 40 MG TAB PO SCH (07:29)
[2023-02-14] MEDS: Ferrous Sulfate 325 MG TAB PO SCH (07:29)
[2023-02-14] MEDS: Carvedilol 25 MG TAB PO SCH ×2 (07:29→16:39)
[2023-02-14] MEDS: traMADol HCl 50 MG TAB PO PRN ×2 (08:24→19:37)
[2023-02-14] MEDS: Isosorbide Mononitrate 20 MG TAB PO SCH (09:14)
[2023-02-14] MEDS: Clopidogrel Bisulfate 75 MG TAB PO SCH (09:15)
[2023-02-14] MEDS: Minoxidil 2.5 MG TAB PO SCH ×2 (09:15→21:02)
[2023-02-14] MEDS: metroNIDAZOLE 500 MG TAB PO SCH ×3 (09:15→21:02)
[2023-02-14] MEDS: cefTRIAXone\\ROCEPHIN 1 GM in Sodium Chloride 0.9% 100 ML IVPB SCH (12:37)
[2023-02-14] MEDS: Atorvastatin Calcium 40 MG TAB PO SCH (21:02)
[2023-02-14] MEDS: tiZANidine HCl 4 MG TAB PO SCH (21:02)
[2023-02-15] MEDS: metroNIDAZOLE 500 MG TAB PO SCH ×3 (07:54→20:26)
[2023-02-15] MEDS: Minoxidil 2.5 MG TAB PO SCH ×2 (07:54→20:26)
[2023-02-15] MEDS: Isosorbide Mononitrate 20 MG TAB PO SCH (07:54)
[2023-02-15] MEDS: Ferrous Sulfate 325 MG TAB PO SCH (07:54)
[2023-02-15] MEDS: Clopidogrel Bisulfate 75 MG TAB PO SCH (07:54)
[2023-02-15] MEDS: Furosemide 40 MG TAB PO SCH (07:55)
[2023-02-15] MEDS: traMADol HCl 50 MG TAB PO PRN ×2 (07:55→17:18)
[2023-02-15] MEDS: Carvedilol 25 MG TAB PO SCH ×2 (07:55→17:19)
[2023-02-15] MEDS: Acetaminophen 500 MG TAB PO PRN (09:32)
[2023-02-15] MEDS: cefTRIAXone\\ROCEPHIN 1 GM in Sodium Chloride 0.9% 100 ML IVPB SCH (12:05)
[2023-02-15] MEDS: cloNIDine 0.1 MG TAB PO SCH (20:26)
[2023-02-15] MEDS: tiZANidine HCl 4 MG TAB PO SCH (20:26)
[2023-02-15] MEDS: Atorvastatin Calcium 40 MG TAB PO SCH (20:26)
[2023-02-16 05:28] LABS: #Basophils 0.1 thou/uL (0.0-0.2); #Eosinphils 0.1 thou/uL (0.0-0.7); #Lymphocytes 1.3 thou/uL (1.20-3.40); #Monocytes 0.6 thou/uL (0.11-0.59); #Neutrophils 4.3 thou/uL (1.40-6.50); %Basophils 1.2 % (0.0-1.0); %Eosinophils 1.7 % (0.0-10.0); %Lymphocytes 20.6 % (21.0-51.0); %Monocytes 9.1 % (0.0-10.0); %Neutrophils 67.5 % (42.0-75.0); Hemoglobin 7.2 g/dL (12.0-16.0); Mean Corpuscular HGB CONC 30.1 g/dL (32.0-36.0); Mean Corpuscular Hemoglobin 29.5 pg (27.0-31.0); Mean Corpuscular Volume 97.9 fl (78.0-98.0); Mean Platelet Volume 5.5 fL (7.4-10.4); Platelet Count 293 10x3/uL (130-400); RBC Distribution Width 16.9 % (11.5-14.5); Red Blood Cell (RBC) Count 2.43 mill/uL (4.20-5.40); White Blood Cell (WBC) Count 6.3 10x3/uL (4.8-10.8)
[2023-02-16 05:39] LABS: Anion Gap 15 mmol/L (10-20); BUN (Urea Nitrogen) 60 mg/dL (9.8-20.1); Calc. Creatinine Clearance 29 mL/min (70-130); Calcium 8.6 mg/dL (7.8-10.44); Chloride 99 mmol/L (98-107); Estimated GFR 17; Glucose 99 mg/dL (83-110); Potassium 3.6 mmol/L (3.5-5.1); Sodium 140 mmol/L (136-145)
[2023-02-16 05:47] LABS: Carbon Dioxide 30 mmol/L (23-31)
[2023-02-16] MEDS: Isosorbide Mononitrate 20 MG TAB PO SCH (08:49)
[2023-02-16] MEDS: Minoxidil 2.5 MG TAB PO SCH ×2 (08:50→20:35)
[2023-02-16] MEDS: cloNIDine 0.1 MG TAB PO SCH ×2 (08:50→20:34)
[2023-02-16] MEDS: Clopidogrel Bisulfate 75 MG TAB PO SCH (08:50)
[2023-02-16] MEDS: Carvedilol 25 MG TAB PO SCH ×2 (08:51→17:01)
[2023-02-16] MEDS: Furosemide 40 MG TAB PO SCH (08:51)
[2023-02-16] MEDS: Ferrous Sulfate 325 MG TAB PO SCH (08:51)
[2023-02-16] MEDS: metroNIDAZOLE 500 MG TAB PO SCH ×3 (08:51→20:35)
[2023-02-16] MEDS: traMADol HCl 50 MG TAB PO PRN (08:51)
[2023-02-16] MEDS: cefTRIAXone\\ROCEPHIN 1 GM in Sodium Chloride 0.9% 100 ML IVPB SCH (12:01)
[2023-02-16] MEDS: Atorvastatin Calcium 40 MG TAB PO SCH (20:35)
[2023-02-16] MEDS: tiZANidine HCl 4 MG TAB PO SCH (20:35)
[2023-02-17] MEDS: Isosorbide Mononitrate 20 MG TAB PO SCH (09:13)
[2023-02-17] MEDS: metroNIDAZOLE 500 MG TAB PO SCH ×3 (09:13→20:36)
[2023-02-17] MEDS: Minoxidil 2.5 MG TAB PO SCH ×2 (09:14→20:37)
[2023-02-17] MEDS: Clopidogrel Bisulfate 75 MG TAB PO SCH (09:14)
[2023-02-17] MEDS: Acetaminophen 325 MG TAB PO PRN (09:15)
[2023-02-17] MEDS: Ferrous Sulfate 325 MG TAB PO SCH (09:16)
[2023-02-17] MEDS: Furosemide 40 MG TAB PO SCH (09:16)
[2023-02-17] MEDS: Carvedilol 25 MG TAB PO SCH ×2 (09:16→17:36)
[2023-02-17] MEDS: cloNIDine 0.1 MG TAB PO SCH ×2 (09:16→20:36)
[2023-02-17] MEDS: Lidocaine 4% Patch TD PRN ×2 (09:17→20:51)
[2023-02-17] MEDS: cefTRIAXone\\ROCEPHIN 1 GM in Sodium Chloride 0.9% 100 ML IVPB SCH (11:34)
[2023-02-17] MEDS: traMADol HCl 50 MG TAB PO PRN (15:32)
[2023-02-17] MEDS: tiZANidine HCl 4 MG TAB PO SCH (20:36)
[2023-02-17] MEDS: Atorvastatin Calcium 40 MG TAB PO SCH (20:37)
[2023-02-18 06:03] LABS: #Basophils 0.1 thou/uL (0.0-0.2); #Eosinphils 0.2 thou/uL (0.0-0.7); #Lymphocytes 1.5 thou/uL (1.20-3.40); #Monocytes 0.6 thou/uL (0.11-0.59); #Neutrophils 5.1 thou/uL (1.40-6.50); %Basophils 1.3 % (0.0-1.0); %Eosinophils 2.1 % (0.0-10.0); %Monocytes 8.5 % (0.0-10.0); %Neutrophils 68.1 % (42.0-75.0); Hemoglobin 7.2 g/dL (12.0-16.0); Mean Corpuscular HGB CONC 30.3 g/dL (32.0-36.0); Mean Corpuscular Hemoglobin 29.5 pg (27.0-31.0); Mean Corpuscular Volume 97.3 fl (78.0-98.0); Mean Platelet Volume 5.4 fL (7.4-10.4); Platelet Count 298 10x3/uL (130-400); RBC Distribution Width 16.8 % (11.5-14.5); Red Blood Cell (RBC) Count 2.44 mill/uL (4.20-5.40); White Blood Cell (WBC) Count 7.5 10x3/uL (4.8-10.8)
[2023-02-18 06:12] LABS: Anion Gap 13 mmol/L (10-20); BUN (Urea Nitrogen) 52 mg/dL (9.8-20.1); Calc. Creatinine Clearance 29 mL/min (70-130); Calcium 8.5 mg/dL (7.8-10.44); Carbon Dioxide 29 mmol/L (23-31); Chloride 99 mmol/L (98-107); Estimated GFR 17; Glucose 92 mg/dL (83-110); Potassium 3.4 mmol/L (3.5-5.1); Sodium 138 mmol/L (136-145)
[2023-02-18] MEDS: Carvedilol 25 MG TAB PO SCH ×2 (07:49→16:56)
[2023-02-18] MEDS: Furosemide 40 MG TAB PO SCH (07:49)
[2023-02-18] MEDS: Ferrous Sulfate 325 MG TAB PO SCH (07:49)
[2023-02-18] MEDS: Clopidogrel Bisulfate 75 MG TAB PO SCH (07:50)
[2023-02-18] MEDS: cloNIDine 0.1 MG TAB PO SCH ×2 (07:50→21:15)
[2023-02-18] MEDS: Isosorbide Mononitrate 20 MG TAB PO SCH (07:50)
[2023-02-18] MEDS: Minoxidil 2.5 MG TAB PO SCH ×2 (07:51→21:15)
[2023-02-18] MEDS: metroNIDAZOLE 500 MG TAB PO SCH ×3 (07:51→21:16)
[2023-02-18] MEDS: traMADol HCl 50 MG TAB PO PRN (07:54)
[2023-02-18] MEDS: Lidocaine 4% Patch TD PRN (07:55)
[2023-02-18] MEDS: cefTRIAXone\\ROCEPHIN 1 GM in Sodium Chloride 0.9% 100 ML IVPB SCH (12:53)
[2023-02-18] MEDS ORDERED: Potassium Chloride 20 MEQ TAB PO SCH (17:00)
[2023-02-18] MEDS: tiZANidine HCl 4 MG TAB PO SCH (21:15)
[2023-02-18] MEDS: Atorvastatin Calcium 40 MG TAB PO SCH (21:16)
[2023-02-19] MEDS: Isosorbide Mononitrate 20 MG TAB PO SCH (08:09)
[2023-02-19] MEDS: Furosemide 40 MG TAB PO SCH (08:09)
[2023-02-19] MEDS: metroNIDAZOLE 500 MG TAB PO SCH ×3 (08:09→20:32)
[2023-02-19] MEDS: Carvedilol 25 MG TAB PO SCH ×2 (08:09→16:35)
[2023-02-19] MEDS: cloNIDine 0.1 MG TAB PO SCH ×2 (08:09→20:32)
[2023-02-19] MEDS: Ferrous Sulfate 325 MG TAB PO SCH (08:09)
[2023-02-19] MEDS: Minoxidil 2.5 MG TAB PO SCH ×2 (08:10→20:32)
[2023-02-19] MEDS: Clopidogrel Bisulfate 75 MG TAB PO SCH (08:10)
[2023-02-19] MEDS: traMADol HCl 50 MG TAB PO PRN ×2 (08:13→20:33)
[2023-02-19] MEDS: cefTRIAXone\\ROCEPHIN 1 GM in Sodium Chloride 0.9% 100 ML IVPB SCH (12:55)
[2023-02-19] MEDS: Atorvastatin Calcium 40 MG TAB PO SCH (20:35)
[2023-02-19] MEDS: tiZANidine HCl 4 MG TAB PO SCH (20:35)
[2023-02-20] MEDS: Ferrous Sulfate 325 MG TAB PO SCH (07:57)
[2023-02-20] MEDS: Isosorbide Mononitrate 20 MG TAB PO SCH (07:58)
[2023-02-20] MEDS: traMADol HCl 50 MG TAB PO PRN (07:58)
[2023-02-20] MEDS: Minoxidil 2.5 MG TAB PO SCH ×2 (07:58→21:07)
[2023-02-20] MEDS: cloNIDine 0.1 MG TAB PO SCH ×2 (07:58→21:07)
[2023-02-20] MEDS: Gabapentin 100 MG CAP PO SCH (07:59)
[2023-02-20] MEDS: metroNIDAZOLE 500 MG TAB PO SCH ×3 (08:00→21:07)
[2023-02-20] MEDS: Carvedilol 25 MG TAB PO SCH ×2 (08:00→17:15)
[2023-02-20] MEDS: Clopidogrel Bisulfate 75 MG TAB PO SCH (08:00)
[2023-02-20] MEDS: Furosemide 40 MG TAB PO SCH (09:47)
[2023-02-20] MEDS: Acetaminophen 500 MG TAB PO PRN (09:47)
[2023-02-20] MEDS: cefTRIAXone\\ROCEPHIN 1 GM in Sodium Chloride 0.9% 100 ML IVPB SCH (11:55)
[2023-02-20] MEDS: tiZANidine HCl 4 MG TAB PO SCH (21:07)
[2023-02-20] MEDS: Atorvastatin Calcium 40 MG TAB PO SCH (21:07)
[2023-02-21] MEDS: Minoxidil 2.5 MG TAB PO SCH ×2 (08:15→20:20)
[2023-02-21] MEDS: Isosorbide Mononitrate 20 MG TAB PO SCH (08:16)
[2023-02-21] MEDS: cloNIDine 0.1 MG TAB PO SCH ×2 (08:16→20:19)
[2023-02-21] MEDS: Clopidogrel Bisulfate 75 MG TAB PO SCH (08:17)
[2023-02-21] MEDS: metroNIDAZOLE 500 MG TAB PO SCH ×3 (08:17→20:20)
[2023-02-21] MEDS: Carvedilol 25 MG TAB PO SCH ×2 (08:17→18:03)
[2023-02-21] MEDS: Ferrous Sulfate 325 MG TAB PO SCH (08:17)
[2023-02-21] MEDS: Furosemide 40 MG TAB PO SCH (08:18)
[2023-02-21] MEDS: Gabapentin 100 MG CAP PO SCH (08:18)
[2023-02-21 09:04] LABS: #Basophils 0.1 thou/uL (0.0-0.2); #Eosinphils 0.1 thou/uL (0.0-0.7); #Lymphocytes 1.1 thou/uL (1.20-3.40); #Monocytes 0.6 thou/uL (0.11-0.59); %Basophils 1.1 % (0.0-1.0); %Eosinophils 1.7 % (0.0-10.0); %Lymphocytes 19.3 % (21.0-51.0); %Monocytes 9.7 % (0.0-10.0); %Neutrophils 68.1 % (42.0-75.0); Hemoglobin 7.6 g/dL (12.0-16.0); Mean Corpuscular HGB CONC 30.6 g/dL (32.0-36.0); Mean Corpuscular Hemoglobin 29.8 pg (27.0-31.0); Mean Corpuscular Volume 97.4 fl (78.0-98.0); Mean Platelet Volume 5.1 fL (7.4-10.4); Platelet Count 299 10x3/uL (130-400); RBC Distribution Width 17.3 % (11.5-14.5); Red Blood Cell (RBC) Count 2.56 mill/uL (4.20-5.40); White Blood Cell (WBC) Count 5.8 10x3/uL (4.8-10.8)
[2023-02-21 09:17] LABS: ALT (SGPT) 9 U/L (8-55); AST (SGOT) 15 U/L (5-34); Albumin 2.6 g/dL (3.4-4.8); Alkaline Phosphatase 43 U/L (40-110); Anion Gap 13 mmol/L (10-20); BUN (Urea Nitrogen) 41 mg/dL (9.8-20.1); Bilirubin, Total 0.4 mg/dL (0.2-1.2); CRP (Inflammatory) 1.92 mg/dL (= or < 0.5); Calc. Creatinine Clearance 32 mL/min (70-130); Calcium 8.7 mg/dL (7.8-10.44); Carbon Dioxide 28 mmol/L (23-31); Chloride 99 mmol/L (98-107); Estimated GFR 19; Globulin 3.7 g/dL (2.4-3.5); Glucose 102 mg/dL (83-110); Potassium 3.6 mmol/L (3.5-5.1); Protein, Total 6.3 g/dL (5.8-8.1); Sodium 136 mmol/L (136-145)
[2023-02-21] MEDS: traMADol HCl 50 MG TAB PO PRN ×2 (10:23→20:19)
[2023-02-21] MEDS: cefTRIAXone\\ROCEPHIN 1 GM in Sodium Chloride 0.9% 100 ML IVPB SCH (11:49)
[2023-02-21] MEDS: Atorvastatin Calcium 40 MG TAB PO SCH (20:19)
[2023-02-21] MEDS: tiZANidine HCl 4 MG TAB PO SCH (20:20)
[2023-02-22] MEDS: traMADol HCl 50 MG TAB PO PRN (07:53)
[2023-02-22] MEDS: Furosemide 40 MG TAB PO SCH (07:56)
[2023-02-22] MEDS: Carvedilol 25 MG TAB PO SCH ×2 (07:56→17:17)
[2023-02-22] MEDS: Isosorbide Mononitrate 20 MG TAB PO SCH (07:56)
[2023-02-22] MEDS: Clopidogrel Bisulfate 75 MG TAB PO SCH (07:56)
[2023-02-22] MEDS: Minoxidil 2.5 MG TAB PO SCH ×3 (07:57→20:43)
[2023-02-22] MEDS: Gabapentin 100 MG CAP PO SCH (07:57)
[2023-02-22] MEDS: metroNIDAZOLE 500 MG TAB PO SCH ×3 (07:57→20:43)
[2023-02-22] MEDS: cloNIDine 0.1 MG TAB PO SCH ×2 (07:58→20:43)
[2023-02-22] MEDS: Saccharomyces boulardii 250 MG CAP PO SCH (07:59)
[2023-02-22] MEDS: Ferrous Sulfate 325 MG TAB PO SCH (08:00)
[2023-02-22] MEDS: Acetaminophen 500 MG TAB PO PRN (11:09)
[2023-02-22] MEDS: cefTRIAXone\\ROCEPHIN 1 GM in Sodium Chloride 0.9% 100 ML IVPB SCH (12:12)
[2023-02-22] MEDS: Atorvastatin Calcium 40 MG TAB PO SCH (20:43)
[2023-02-22] MEDS: tiZANidine HCl 4 MG TAB PO SCH (20:43)
[2023-02-23 05:19] LABS: #Eosinphils 0.1 thou/uL (0.0-0.7); #Lymphocytes 1.5 thou/uL (1.20-3.40); #Monocytes 0.6 thou/uL (0.11-0.59); #Neutrophils 4.5 thou/uL (1.40-6.50); %Basophils 0.7 % (0.0-1.0); %Eosinophils 1.6 % (0.0-10.0); %Lymphocytes 21.5 % (21.0-51.0); %Monocytes 8.7 % (0.0-10.0); %Neutrophils 67.5 % (42.0-75.0); Hemoglobin 7.1 g/dL (12.0-16.0); Mean Corpuscular HGB CONC 31.2 g/dL (32.0-36.0); Mean Corpuscular Volume 96.1 fl (78.0-98.0); Mean Platelet Volume 5.3 fL (7.4-10.4); Platelet Count 254 10x3/uL (130-400); RBC Distribution Width 16.7 % (11.5-14.5); Red Blood Cell (RBC) Count 2.36 mill/uL (4.20-5.40); White Blood Cell (WBC) Count 6.7 10x3/uL (4.8-10.8)
[2023-02-23 05:34] LABS: Anion Gap 13 mmol/L (10-20); BUN (Urea Nitrogen) 39 mg/dL (9.8-20.1); Calc. Creatinine Clearance 31 mL/min (70-130); Calcium 8.2 mg/dL (7.8-10.44); Carbon Dioxide 28 mmol/L (23-31); Chloride 101 mmol/L (98-107); Estimated GFR 18; Glucose 150 mg/dL (83-110); Potassium 3.8 mmol/L (3.5-5.1); Sodium 138 mmol/L (136-145)
[2023-02-23] MEDS: metroNIDAZOLE 500 MG TAB PO SCH ×3 (07:52→21:14)
[2023-02-23] MEDS: Carvedilol 25 MG TAB PO SCH ×2 (07:52→16:49)
[2023-02-23] MEDS: Saccharomyces boulardii 250 MG CAP PO SCH (07:52)
[2023-02-23] MEDS: Minoxidil 2.5 MG TAB PO SCH ×2 (07:52→21:16)
[2023-02-23] MEDS: Ferrous Sulfate 325 MG TAB PO SCH (07:52)
[2023-02-23] MEDS: Clopidogrel Bisulfate 75 MG TAB PO SCH (07:53)
[2023-02-23] MEDS: Gabapentin 100 MG CAP PO SCH (07:53)
[2023-02-23] MEDS: Furosemide 40 MG TAB PO SCH (07:53)
[2023-02-23] MEDS: cloNIDine 0.1 MG TAB PO SCH ×2 (07:53→21:15)
[2023-02-23] MEDS: Isosorbide Mononitrate 20 MG TAB PO SCH (07:55)
[2023-02-23] MEDS: Acetaminophen 325 MG TAB PO PRN (07:59)
[2023-02-23] MEDS: cefTRIAXone\\ROCEPHIN 1 GM in Sodium Chloride 0.9% 100 ML IVPB SCH (12:55)
[2023-02-23] MEDS: Atorvastatin Calcium 40 MG TAB PO SCH (21:15)
[2023-02-23] MEDS: tiZANidine HCl 4 MG TAB PO SCH (21:16)
[2023-02-23] MEDS: traMADol HCl 50 MG TAB PO PRN (21:18)
[2023-02-24] MEDS: Carvedilol 25 MG TAB PO SCH ×2 (08:10→17:36)
[2023-02-24] MEDS: Isosorbide Mononitrate 20 MG TAB PO SCH (08:10)
[2023-02-24] MEDS: Gabapentin 100 MG CAP PO SCH (08:11)
[2023-02-24] MEDS: Saccharomyces boulardii 250 MG CAP PO SCH (08:11)
[2023-02-24] MEDS: Clopidogrel Bisulfate 75 MG TAB PO SCH (08:11)
[2023-02-24] MEDS: Minoxidil 2.5 MG TAB PO SCH ×2 (08:11→21:48)
[2023-02-24] MEDS: Furosemide 40 MG TAB PO SCH (08:12)
[2023-02-24] MEDS: metroNIDAZOLE 500 MG TAB PO SCH ×3 (08:12→21:48)
[2023-02-24] MEDS: cloNIDine 0.1 MG TAB PO SCH ×2 (08:12→21:48)
[2023-02-24] MEDS: Ferrous Sulfate 325 MG TAB PO SCH (08:17)
[2023-02-24] MEDS: cefTRIAXone\\ROCEPHIN 1 GM in Sodium Chloride 0.9% 100 ML IVPB SCH (12:07)
[2023-02-24 15:03] LABS: Anion Gap 17 mmol/L (10-20); BUN (Urea Nitrogen) 37 mg/dL (9.8-20.1); Calc. Creatinine Clearance 0 mL/min (70-130); Calcium 8.7 mg/dL (7.8-10.44); Carbon Dioxide 21 mmol/L (23-31); Chloride 99 mmol/L (98-107); Estimated GFR 18; Glucose 130 mg/dL (83-110); Potassium 4.2 mmol/L (3.5-5.1); Sodium 133 mmol/L (136-145)
[2023-02-24] MEDS: Atorvastatin Calcium 40 MG TAB PO SCH (21:48)
[2023-02-24] MEDS: tiZANidine HCl 4 MG TAB PO SCH (21:49)
[2023-02-24] MEDS: traMADol HCl 50 MG TAB PO PRN (21:49)
[2023-02-25] MEDS: Ferrous Sulfate 325 MG TAB PO SCH (09:34)
[2023-02-25] MEDS: cloNIDine 0.1 MG TAB PO SCH ×2 (09:35→21:04)
[2023-02-25] MEDS: Furosemide 40 MG TAB PO SCH (09:35)
[2023-02-25] MEDS: Isosorbide Mononitrate 20 MG TAB PO SCH (09:35)
[2023-02-25] MEDS: Gabapentin 100 MG CAP PO SCH (09:35)
[2023-02-25] MEDS: Clopidogrel Bisulfate 75 MG TAB PO SCH (09:35)
[2023-02-25] MEDS: Saccharomyces boulardii 250 MG CAP PO SCH (09:35)
[2023-02-25] MEDS: Minoxidil 2.5 MG TAB PO SCH ×2 (09:37→21:03)
[2023-02-25] MEDS: Carvedilol 25 MG TAB PO SCH ×2 (09:38→17:06)
[2023-02-25] MEDS: cefTRIAXone\\ROCEPHIN 1 GM in Sodium Chloride 0.9% 100 ML IVPB SCH (11:48)
[2023-02-25] MEDS: traMADol HCl 50 MG TAB PO PRN (14:08)
[2023-02-25] MEDS: tiZANidine HCl 4 MG TAB PO SCH (21:03)
[2023-02-25] MEDS: Atorvastatin Calcium 40 MG TAB PO SCH (21:03)
[2023-02-26 05:27] LABS: #Basophils 0.1 thou/uL (0.0-0.2); #Eosinphils 0.1 thou/uL (0.0-0.7); #Lymphocytes 1.3 thou/uL (1.20-3.40); #Monocytes 0.6 thou/uL (0.11-0.59); #Neutrophils 4.2 thou/uL (1.40-6.50); %Basophils 1.1 % (0.0-1.0); %Eosinophils 1.2 % (0.0-10.0); %Lymphocytes 21.3 % (21.0-51.0); %Neutrophils 67.3 % (42.0-75.0); Hemoglobin 7.7 g/dL (12.0-16.0); Mean Corpuscular HGB CONC 30.4 g/dL (32.0-36.0); Mean Corpuscular Hemoglobin 29.7 pg (27.0-31.0); Mean Corpuscular Volume 97.6 fl (78.0-98.0); Mean Platelet Volume 5.8 fL (7.4-10.4); Platelet Count 230 10x3/uL (130-400); RBC Distribution Width 16.3 % (11.5-14.5); Red Blood Cell (RBC) Count 2.61 mill/uL (4.20-5.40); White Blood Cell (WBC) Count 6.2 10x3/uL (4.8-10.8)
[2023-02-26 05:31] LABS: Anion Gap 11 mmol/L (10-20); BUN (Urea Nitrogen) 40 mg/dL (9.8-20.1); Calc. Creatinine Clearance 32 mL/min (70-130); Calcium 8.3 mg/dL (7.8-10.44); Carbon Dioxide 27 mmol/L (23-31); Chloride 102 mmol/L (98-107); Estimated GFR 18; Glucose 126 mg/dL (83-110); Potassium 3.4 mmol/L (3.5-5.1); Sodium 137 mmol/L (136-145)
[2023-02-26] MEDS: cloNIDine 0.1 MG TAB PO SCH ×2 (08:56→21:47)
[2023-02-26] MEDS: Minoxidil 2.5 MG TAB PO SCH ×2 (08:56→21:48)
[2023-02-26] MEDS: traMADol HCl 50 MG TAB PO PRN ×2 (08:57→21:46)
[2023-02-26] MEDS: Ferrous Sulfate 325 MG TAB PO SCH (08:58)
[2023-02-26] MEDS: Saccharomyces boulardii 250 MG CAP PO SCH (08:58)
[2023-02-26] MEDS: Clopidogrel Bisulfate 75 MG TAB PO SCH (08:58)
[2023-02-26] MEDS: Furosemide 40 MG TAB PO SCH (08:58)
[2023-02-26] MEDS: Carvedilol 25 MG TAB PO SCH ×2 (08:58→17:21)
[2023-02-26] MEDS: Gabapentin 100 MG CAP PO SCH (08:58)
[2023-02-26] MEDS: Isosorbide Mononitrate 20 MG TAB PO SCH (08:58)
[2023-02-26] MEDS: cefTRIAXone\\ROCEPHIN 1 GM in Sodium Chloride 0.9% 100 ML IVPB SCH (11:19)
[2023-02-26] MEDS ORDERED: Potassium Chloride 20 MEQ TAB PO SCH (11:30)
[2023-02-26] MEDS: Atorvastatin Calcium 40 MG TAB PO SCH (21:47)
[2023-02-26] MEDS: tiZANidine HCl 4 MG TAB PO SCH (21:48)
[2023-02-27] MEDS: Furosemide 40 MG TAB PO SCH (07:20)
[2023-02-27] MEDS: Ferrous Sulfate 325 MG TAB PO SCH (08:45)
[2023-02-27] MEDS: traMADol HCl 50 MG TAB PO PRN ×2 (09:25→21:41)
[2023-02-27] MEDS: cloNIDine 0.1 MG TAB PO SCH ×2 (09:27→21:42)
[2023-02-27] MEDS: Isosorbide Mononitrate 20 MG TAB PO SCH (09:28)
[2023-02-27] MEDS: Saccharomyces boulardii 250 MG CAP PO SCH (09:28)
[2023-02-27] MEDS: Minoxidil 2.5 MG TAB PO SCH ×2 (09:28→21:41)
[2023-02-27] MEDS: Clopidogrel Bisulfate 75 MG TAB PO SCH (09:29)
[2023-02-27] MEDS: Gabapentin 100 MG CAP PO SCH (09:29)
[2023-02-27] MEDS: Carvedilol 25 MG TAB PO SCH ×2 (09:30→16:59)
[2023-02-27] MEDS: cefTRIAXone\\ROCEPHIN 1 GM in Sodium Chloride 0.9% 100 ML IVPB SCH (11:00)
[2023-02-27] MEDS: tiZANidine HCl 4 MG TAB PO SCH (21:41)
[2023-02-27] MEDS: Atorvastatin Calcium 40 MG TAB PO SCH (21:42)
[2023-02-28 06:09] LABS: #Basophils 0.1 thou/uL (0.0-0.2); #Eosinphils 0.2 thou/uL (0.0-0.7); #Lymphocytes 1.3 thou/uL (1.20-3.40); #Monocytes 0.5 thou/uL (0.11-0.59); #Neutrophils 2.7 thou/uL (1.40-6.50); %Basophils 1.6 % (0.0-1.0); %Eosinophils 3.4 % (0.0-10.0); %Lymphocytes 27.6 % (21.0-51.0); %Monocytes 10.5 % (0.0-10.0); %Neutrophils 56.9 % (42.0-75.0); Hemoglobin 7.6 g/dL (12.0-16.0); Mean Corpuscular HGB CONC 30.3 g/dL (32.0-36.0); Mean Corpuscular Hemoglobin 29.4 pg (27.0-31.0); Mean Corpuscular Volume 97.1 fl (78.0-98.0); Mean Platelet Volume 5.5 fL (7.4-10.4); Platelet Count 250 10x3/uL (130-400); Red Blood Cell (RBC) Count 2.57 mill/uL (4.20-5.40); White Blood Cell (WBC) Count 4.7 10x3/uL (4.8-10.8)
[2023-02-28 06:24] LABS: ALT (SGPT) 7 U/L (8-55); AST (SGOT) 11 U/L (5-34); Albumin 2.4 g/dL (3.4-4.8); Alkaline Phosphatase 39 U/L (40-110); Anion Gap 14 mmol/L (10-20); BUN (Urea Nitrogen) 38 mg/dL (9.8-20.1); Bilirubin, Total 0.3 mg/dL (0.2-1.2); CRP (Inflammatory) 1.62 mg/dL (= or < 0.5); Calc. Creatinine Clearance 33 mL/min (70-130); Calcium 8.4 mg/dL (7.8-10.44); Carbon Dioxide 25 mmol/L (23-31); Chloride 103 mmol/L (98-107); Estimated GFR 19; Globulin 3.6 g/dL (2.4-3.5); Glucose 97 mg/dL (83-110); Potassium 3.9 mmol/L (3.5-5.1); Sodium 138 mmol/L (136-145)
[2023-02-28] MEDS: Isosorbide Mononitrate 20 MG TAB PO SCH (08:16)
[2023-02-28] MEDS: Ferrous Sulfate 325 MG TAB PO SCH (08:17)
[2023-02-28] MEDS: Saccharomyces boulardii 250 MG CAP PO SCH (08:17)
[2023-02-28] MEDS: cloNIDine 0.1 MG TAB PO SCH ×2 (08:17→20:44)
[2023-02-28] MEDS: Furosemide 40 MG TAB PO SCH (08:18)
[2023-02-28] MEDS: Minoxidil 2.5 MG TAB PO SCH ×2 (08:18→20:44)
[2023-02-28] MEDS: Carvedilol 25 MG TAB PO SCH ×2 (08:18→16:12)
[2023-02-28] MEDS: Gabapentin 100 MG CAP PO SCH (08:18)
[2023-02-28] MEDS: Clopidogrel Bisulfate 75 MG TAB PO SCH (08:18)
[2023-02-28] MEDS: traMADol HCl 50 MG TAB PO PRN (10:06)
[2023-02-28] MEDS: cefTRIAXone\\ROCEPHIN 1 GM in Sodium Chloride 0.9% 100 ML IVPB SCH (11:41)
[2023-02-28] MEDS: metroNIDAZOLE 500 MG TAB PO SCH ×2 (16:12→20:44)
[2023-02-28] MEDS: tiZANidine HCl 4 MG TAB PO SCH (20:44)
[2023-02-28] MEDS: Atorvastatin Calcium 40 MG TAB PO SCH (20:44)
[2023-03-01] MEDS: Acetaminophen 500 MG TAB PO PRN (07:36)
[2023-03-01] MEDS: Furosemide 40 MG TAB PO SCH (07:38)
[2023-03-01] MEDS: Ferrous Sulfate 325 MG TAB PO SCH (07:39)
[2023-03-01] MEDS: Clopidogrel Bisulfate 75 MG TAB PO SCH (07:39)
[2023-03-01] MEDS: Saccharomyces boulardii 250 MG CAP PO SCH (07:39)
[2023-03-01] MEDS: Minoxidil 2.5 MG TAB PO SCH ×2 (07:40→20:27)
[2023-03-01] MEDS: metroNIDAZOLE 500 MG TAB PO SCH ×3 (07:40→20:28)
[2023-03-01] MEDS: Gabapentin 100 MG CAP PO SCH (07:41)
[2023-03-01] MEDS: Carvedilol 25 MG TAB PO SCH ×2 (07:45→16:44)
[2023-03-01] MEDS: Isosorbide Mononitrate 20 MG TAB PO SCH (07:46)
[2023-03-01] MEDS: cloNIDine 0.1 MG TAB PO SCH ×2 (07:46→20:28)
[2023-03-01] MEDS: cefTRIAXone\\ROCEPHIN 1 GM in Sodium Chloride 0.9% 100 ML IVPB SCH (12:49)
[2023-03-01] MEDS ORDERED: Furosemide 20 MG TAB PO SCH (13:15)
[2023-03-01] MEDS: traMADol HCl 50 MG TAB PO PRN (16:45)
[2023-03-01] MEDS: tiZANidine HCl 4 MG TAB PO SCH (20:28)
[2023-03-01] MEDS: Atorvastatin Calcium 40 MG TAB PO SCH (21:21)
[2023-03-02] MEDS: traMADol HCl 50 MG TAB PO PRN (08:33)
[2023-03-02] MEDS: Saccharomyces boulardii 250 MG CAP PO SCH (08:34)
[2023-03-02] MEDS: Isosorbide Mononitrate 20 MG TAB PO SCH (08:34)
[2023-03-02] MEDS: Carvedilol 25 MG TAB PO SCH ×2 (08:35→17:02)
[2023-03-02] MEDS: Furosemide 40 MG TAB PO SCH (08:35)
[2023-03-02] MEDS: cloNIDine 0.1 MG TAB PO SCH ×2 (08:35→20:53)
[2023-03-02] MEDS: metroNIDAZOLE 500 MG TAB PO SCH ×3 (08:36→20:53)
[2023-03-02] MEDS: Clopidogrel Bisulfate 75 MG TAB PO SCH (08:36)
[2023-03-02] MEDS: Minoxidil 2.5 MG TAB PO SCH ×2 (08:36→20:53)
[2023-03-02] MEDS: Ferrous Sulfate 325 MG TAB PO SCH (08:36)
[2023-03-02] MEDS: Gabapentin 100 MG CAP PO SCH (08:36)
[2023-03-02] MEDS: Lidocaine 4% Patch TD PRN (08:41)
[2023-03-02] MEDS ORDERED: Furosemide 20 MG TAB PO SCH (12:00)
[2023-03-02] MEDS: cefTRIAXone\\ROCEPHIN 1 GM in Sodium Chloride 0.9% 100 ML IVPB SCH (12:59)
[2023-03-02] MEDS: tiZANidine HCl 4 MG TAB PO SCH (20:53)
[2023-03-02] MEDS: Atorvastatin Calcium 40 MG TAB PO SCH (20:53)
[2023-03-03 06:53] LABS: #Basophils 0.1 thou/uL (0.0-0.2); #Eosinphils 0.1 thou/uL (0.0-0.7); #Lymphocytes 1.7 thou/uL (1.20-3.40); #Monocytes 0.5 thou/uL (0.11-0.59); #Neutrophils 2.6 thou/uL (1.40-6.50); %Basophils 1.4 % (0.0-1.0); %Eosinophils 2.1 % (0.0-10.0); %Lymphocytes 33.6 % (21.0-51.0); %Neutrophils 51.8 % (42.0-75.0); Hemoglobin 7.8 g/dL (12.0-16.0); Mean Corpuscular HGB CONC 31.2 g/dL (32.0-36.0); Mean Corpuscular Hemoglobin 29.7 pg (27.0-31.0); Mean Corpuscular Volume 95.2 fl (78.0-98.0); Platelet Count 267 10x3/uL (130-400); RBC Distribution Width 15.6 % (11.5-14.5); Red Blood Cell (RBC) Count 2.62 mill/uL (4.20-5.40); White Blood Cell (WBC) Count 4.9 10x3/uL (4.8-10.8)
[2023-03-03 07:05] LABS: Anion Gap 13 mmol/L (10-20); BUN (Urea Nitrogen) 35 mg/dL (9.8-20.1); Calc. Creatinine Clearance 36 mL/min (70-130); Calcium 8.5 mg/dL (7.8-10.44); Carbon Dioxide 25 mmol/L (23-31); Chloride 103 mmol/L (98-107); Estimated GFR 21; Glucose 93 mg/dL (83-110); Potassium 3.8 mmol/L (3.5-5.1); Sodium 137 mmol/L (136-145)
[2023-03-03] MEDS: metroNIDAZOLE 500 MG TAB PO SCH ×3 (07:57→20:57)
[2023-03-03] MEDS: Ferrous Sulfate 325 MG TAB PO SCH (07:57)
[2023-03-03] MEDS: Isosorbide Mononitrate 20 MG TAB PO SCH (07:57)
[2023-03-03] MEDS: cloNIDine 0.1 MG TAB PO SCH ×2 (07:58→20:57)
[2023-03-03] MEDS: Furosemide 40 MG TAB PO SCH (07:58)
[2023-03-03] MEDS: Minoxidil 2.5 MG TAB PO SCH ×2 (07:58→20:57)
[2023-03-03] MEDS: Carvedilol 25 MG TAB PO SCH ×2 (07:58→17:19)
[2023-03-03] MEDS: Gabapentin 100 MG CAP PO SCH (07:59)
[2023-03-03] MEDS: Saccharomyces boulardii 250 MG CAP PO SCH (08:00)
[2023-03-03] MEDS: Clopidogrel Bisulfate 75 MG TAB PO SCH (08:00)
[2023-03-03] MEDS: cefTRIAXone\\ROCEPHIN 1 GM in Sodium Chloride 0.9% 100 ML IVPB SCH (11:29)
[2023-03-03] MEDS ORDERED: Furosemide 40 MG TAB PO SCH (12:00)
[2023-03-03] MEDS: traMADol HCl 50 MG TAB PO PRN (13:54)
[2023-03-03] MEDS: Lidocaine 4% Patch TD PRN (13:55)
[2023-03-03] MEDS: Acetaminophen 325 MG TAB PO PRN (17:20)
[2023-03-03] MEDS: tiZANidine HCl 4 MG TAB PO SCH (20:57)
[2023-03-03] MEDS: Atorvastatin Calcium 40 MG TAB PO SCH (20:57)
[2023-03-04] MEDS: Carvedilol 25 MG TAB PO SCH ×2 (07:32→17:28)
[2023-03-04] MEDS: Ferrous Sulfate 325 MG TAB PO SCH (07:32)
[2023-03-04] MEDS: Clopidogrel Bisulfate 75 MG TAB PO SCH (07:33)
[2023-03-04] MEDS: Isosorbide Mononitrate 20 MG TAB PO SCH (07:33)
[2023-03-04] MEDS: Furosemide 40 MG TAB PO SCH (07:33)
[2023-03-04] MEDS: Minoxidil 2.5 MG TAB PO SCH ×2 (07:33→20:58)
[2023-03-04] MEDS: cloNIDine 0.1 MG TAB PO SCH ×2 (07:33→20:58)
[2023-03-04] MEDS: Acetaminophen 500 MG TAB PO PRN (07:34)
[2023-03-04] MEDS: Gabapentin 100 MG CAP PO SCH (07:36)
[2023-03-04] MEDS: metroNIDAZOLE 500 MG TAB PO SCH ×3 (07:36→20:58)
[2023-03-04] MEDS: Saccharomyces boulardii 250 MG CAP PO SCH (07:36)
[2023-03-04] MEDS: traMADol HCl 50 MG TAB PO PRN (08:07)
[2023-03-04] MEDS: cefTRIAXone\\ROCEPHIN 1 GM in Sodium Chloride 0.9% 100 ML IVPB SCH (12:16)
[2023-03-04] MEDS: tiZANidine HCl 4 MG TAB PO SCH (20:58)
[2023-03-04] MEDS: Atorvastatin Calcium 40 MG TAB PO SCH (20:58)
[2023-03-05] MEDS: Carvedilol 25 MG TAB PO SCH ×2 (07:59→16:21)
[2023-03-05] MEDS: Ferrous Sulfate 325 MG TAB PO SCH (07:59)
[2023-03-05] MEDS: Furosemide 40 MG TAB PO SCH (07:59)
[2023-03-05] MEDS: traMADol HCl 50 MG TAB PO PRN ×2 (08:01→22:25)
[2023-03-05] MEDS: Ondansetron ODT 4 MG TAB PO PRN (09:39)
[2023-03-05] MEDS: cloNIDine 0.1 MG TAB PO SCH ×2 (10:07→21:18)
[2023-03-05] MEDS: Isosorbide Mononitrate 20 MG TAB PO SCH (10:07)
[2023-03-05] MEDS: Gabapentin 100 MG CAP PO SCH (10:08)
[2023-03-05] MEDS: Saccharomyces boulardii 250 MG CAP PO SCH (10:08)
[2023-03-05] MEDS: Clopidogrel Bisulfate 75 MG TAB PO SCH (10:08)
[2023-03-05] MEDS: metroNIDAZOLE 500 MG TAB PO SCH ×3 (10:08→21:19)
[2023-03-05] MEDS: Minoxidil 2.5 MG TAB PO SCH ×2 (10:09→21:18)
[2023-03-05] MEDS: cefTRIAXone\\ROCEPHIN 1 GM in Sodium Chloride 0.9% 100 ML IVPB SCH (11:12)
[2023-03-05] MEDS: tiZANidine HCl 4 MG TAB PO SCH (21:18)
[2023-03-05] MEDS: Atorvastatin Calcium 40 MG TAB PO SCH (21:19)
[2023-03-06] MEDS: traMADol HCl 50 MG TAB PO PRN ×2 (08:06→21:29)
[2023-03-06] MEDS: Gabapentin 100 MG CAP PO SCH (08:07)
[2023-03-06] MEDS: cloNIDine 0.1 MG TAB PO SCH ×2 (08:08→21:28)
[2023-03-06] MEDS: Isosorbide Mononitrate 20 MG TAB PO SCH (08:08)
[2023-03-06] MEDS: metroNIDAZOLE 500 MG TAB PO SCH ×3 (08:08→21:30)
[2023-03-06] MEDS: Clopidogrel Bisulfate 75 MG TAB PO SCH (08:09)
[2023-03-06] MEDS: Minoxidil 2.5 MG TAB PO SCH ×2 (08:09→21:28)
[2023-03-06] MEDS: Saccharomyces boulardii 250 MG CAP PO SCH (08:09)
[2023-03-06] MEDS: Ferrous Sulfate 325 MG TAB PO SCH (08:10)
[2023-03-06] MEDS: Furosemide 40 MG TAB PO SCH (08:10)
[2023-03-06] MEDS: Carvedilol 25 MG TAB PO SCH ×2 (08:10→16:27)
[2023-03-06] MEDS: cefTRIAXone\\ROCEPHIN 1 GM in Sodium Chloride 0.9% 100 ML IVPB SCH (11:54)
[2023-03-06] MEDS ORDERED: Furosemide 40 MG TAB PO SCH (17:00)
[2023-03-06] MEDS: tiZANidine HCl 4 MG TAB PO SCH (21:28)
[2023-03-06] MEDS: Atorvastatin Calcium 40 MG TAB PO SCH (21:28)
[2023-03-07 05:55] LABS: #Basophils 0.1 thou/uL (0.0-0.2); #Eosinphils 0.1 thou/uL (0.0-0.7); #Lymphocytes 1.4 thou/uL (1.20-3.40); #Monocytes 0.5 thou/uL (0.11-0.59); #Neutrophils 2.7 thou/uL (1.40-6.50); %Basophils 1.5 % (0.0-1.0); %Eosinophils 2.2 % (0.0-10.0); %Lymphocytes 29.8 % (21.0-51.0); %Monocytes 9.8 % (0.0-10.0); %Neutrophils 56.6 % (42.0-75.0); Mean Corpuscular Hemoglobin 29.1 pg (27.0-31.0); Mean Corpuscular Volume 96.9 fl (78.0-98.0); Mean Platelet Volume 5.5 fL (7.4-10.4); Platelet Count 267 10x3/uL (130-400); RBC Distribution Width 15.4 % (11.5-14.5); Red Blood Cell (RBC) Count 2.74 mill/uL (4.20-5.40); White Blood Cell (WBC) Count 4.8 10x3/uL (4.8-10.8)
[2023-03-07 06:14] LABS: ALT (SGPT) Less than 7 U/L (8-55); AST (SGOT) 10 U/L (5-34); Albumin 2.5 g/dL (3.4-4.8); Alkaline Phosphatase 41 U/L (40-110); Anion Gap 12 mmol/L (10-20); BUN (Urea Nitrogen) 32 mg/dL (9.8-20.1); Bilirubin, Total 0.2 mg/dL (0.2-1.2); CRP (Inflammatory) 1.27 mg/dL (= or < 0.5); Calc. Creatinine Clearance 34 mL/min (70-130); Calcium 8.6 mg/dL (7.8-10.44); Carbon Dioxide 27 mmol/L (23-31); Chloride 104 mmol/L (98-107); Estimated GFR 20; Globulin 3.8 g/dL (2.4-3.5); Glucose 95 mg/dL (83-110); Potassium 4.2 mmol/L (3.5-5.1); Protein, Total 6.3 g/dL (5.8-8.1); Sodium 139 mmol/L (136-145)
[2023-03-07] MEDS: cloNIDine 0.1 MG TAB PO SCH ×2 (09:02→21:08)
[2023-03-07] MEDS: Ondansetron ODT 4 MG TAB PO PRN (09:02)
[2023-03-07] MEDS: Isosorbide Mononitrate 20 MG TAB PO SCH (09:02)
[2023-03-07] MEDS: metroNIDAZOLE 500 MG TAB PO SCH ×3 (09:02→21:09)
[2023-03-07] MEDS: Saccharomyces boulardii 250 MG CAP PO SCH (09:02)
[2023-03-07] MEDS: Carvedilol 25 MG TAB PO SCH ×2 (09:03→17:06)
[2023-03-07] MEDS: Ferrous Sulfate 325 MG TAB PO SCH (09:03)
[2023-03-07] MEDS: Minoxidil 2.5 MG TAB PO SCH ×2 (09:03→21:08)
[2023-03-07] MEDS: Furosemide 40 MG TAB PO SCH (09:03)
[2023-03-07] MEDS: traMADol HCl 50 MG TAB PO PRN ×2 (09:03→15:20)
[2023-03-07] MEDS: Gabapentin 100 MG CAP PO SCH (09:04)
[2023-03-07] MEDS: Clopidogrel Bisulfate 75 MG TAB PO SCH (09:04)
[2023-03-07] MEDS: cefTRIAXone\\ROCEPHIN 1 GM in Sodium Chloride 0.9% 100 ML IVPB SCH (11:13)
[2023-03-07] MEDS: tiZANidine HCl 4 MG TAB PO SCH (21:08)
[2023-03-07] MEDS: Atorvastatin Calcium 40 MG TAB PO SCH (21:09)
[2023-03-08] MEDS: Minoxidil 2.5 MG TAB PO SCH ×2 (08:23→20:42)
[2023-03-08] MEDS: metroNIDAZOLE 500 MG TAB PO SCH ×3 (08:23→20:41)
[2023-03-08] MEDS: Saccharomyces boulardii 250 MG CAP PO SCH (08:23)
[2023-03-08] MEDS: Isosorbide Mononitrate 20 MG TAB PO SCH (08:23)
[2023-03-08] MEDS: Furosemide 40 MG TAB PO SCH (08:23)
[2023-03-08] MEDS: Gabapentin 100 MG CAP PO SCH (08:24)
[2023-03-08] MEDS: Clopidogrel Bisulfate 75 MG TAB PO SCH (08:25)
[2023-03-08] MEDS: Ferrous Sulfate 325 MG TAB PO SCH (08:25)
[2023-03-08] MEDS: cloNIDine 0.1 MG TAB PO SCH ×2 (08:25→20:42)
[2023-03-08] MEDS: Carvedilol 25 MG TAB PO SCH ×2 (08:25→17:47)
[2023-03-08] MEDS: traMADol HCl 50 MG TAB PO PRN (12:51)
[2023-03-08] MEDS: cefTRIAXone\\ROCEPHIN 1 GM in Sodium Chloride 0.9% 100 ML IVPB SCH (12:53)
[2023-03-08] MEDS: Atorvastatin Calcium 40 MG TAB PO SCH (20:41)
[2023-03-08] MEDS: tiZANidine HCl 4 MG TAB PO SCH (20:41)
[2023-03-09] MEDS: DULoxetine 30 MG CAP PO SCH (08:00)
[2023-03-09] MEDS: cloNIDine 0.1 MG TAB PO SCH ×2 (08:00→21:52)
[2023-03-09] MEDS: Saccharomyces boulardii 250 MG CAP PO SCH (08:01)
[2023-03-09] MEDS: metroNIDAZOLE 500 MG TAB PO SCH ×3 (08:01→21:52)
[2023-03-09] MEDS: Gabapentin 100 MG CAP PO SCH (08:02)
[2023-03-09] MEDS: Ferrous Sulfate 325 MG TAB PO SCH (08:02)
[2023-03-09] MEDS: Minoxidil 2.5 MG TAB PO SCH ×2 (08:02→21:51)
[2023-03-09] MEDS: Clopidogrel Bisulfate 75 MG TAB PO SCH (08:02)
[2023-03-09] MEDS: Furosemide 40 MG TAB PO SCH (08:03)
[2023-03-09] MEDS: Carvedilol 25 MG TAB PO SCH ×2 (08:03→16:44)
[2023-03-09] MEDS: Isosorbide Mononitrate 20 MG TAB PO SCH (08:03)
[2023-03-09] MEDS: traMADol HCl 50 MG TAB PO PRN (08:05)
[2023-03-09 10:41] LABS: #Eosinphils 0.1 thou/uL (0.0-0.7); #Lymphocytes 1.5 thou/uL (1.20-3.40); #Monocytes 0.4 thou/uL (0.11-0.59); #Neutrophils 4.4 thou/uL (1.40-6.50); %Basophils 0.7 % (0.0-1.0); %Eosinophils 1.2 % (0.0-10.0); %Monocytes 6.9 % (0.0-10.0); %Neutrophils 68.2 % (42.0-75.0); Hemoglobin 8.2 g/dL (12.0-16.0); Mean Corpuscular HGB CONC 30.1 g/dL (32.0-36.0); Mean Corpuscular Hemoglobin 29.1 pg (27.0-31.0); Mean Corpuscular Volume 96.5 fl (78.0-98.0); Mean Platelet Volume 5.4 fL (7.4-10.4); Platelet Count 256 10x3/uL (130-400); RBC Distribution Width 15.7 % (11.5-14.5); Red Blood Cell (RBC) Count 2.82 mill/uL (4.20-5.40); White Blood Cell (WBC) Count 6.5 10x3/uL (4.8-10.8)
[2023-03-09 10:59] LABS: Anion Gap 15 mmol/L (10-20); BUN (Urea Nitrogen) 30 mg/dL (9.8-20.1); Calc. Creatinine Clearance 34 mL/min (70-130); Calcium 8.5 mg/dL (7.8-10.44); Carbon Dioxide 21 mmol/L (23-31); Chloride 101 mmol/L (98-107); Estimated GFR 19; Glucose 118 mg/dL (83-110); Sodium 133 mmol/L (136-145)
[2023-03-09] MEDS: cefTRIAXone\\ROCEPHIN 1 GM in Sodium Chloride 0.9% 100 ML IVPB SCH (12:45)
[2023-03-09] MEDS: tiZANidine HCl 4 MG TAB PO SCH (21:52)
[2023-03-09] MEDS: Atorvastatin Calcium 40 MG TAB PO SCH (21:52)
[2023-03-09] MEDS ORDERED: traMADol HCl 50 MG TAB PO SCH (22:00)
[2023-03-10] MEDS: Gabapentin 100 MG CAP PO SCH (08:09)
[2023-03-10] MEDS: DULoxetine 30 MG CAP PO SCH (08:09)
[2023-03-10] MEDS: Isosorbide Mononitrate 20 MG TAB PO SCH (08:09)
[2023-03-10] MEDS: cloNIDine 0.1 MG TAB PO SCH ×2 (08:09→20:33)
[2023-03-10] MEDS: Clopidogrel Bisulfate 75 MG TAB PO SCH (08:10)
[2023-03-10] MEDS: Saccharomyces boulardii 250 MG CAP PO SCH (08:10)
[2023-03-10] MEDS: Minoxidil 2.5 MG TAB PO SCH ×2 (08:10→20:33)
[2023-03-10] MEDS: Ferrous Sulfate 325 MG TAB PO SCH (08:10)
[2023-03-10] MEDS: Carvedilol 25 MG TAB PO SCH ×2 (08:10→17:03)
[2023-03-10] MEDS: Furosemide 40 MG TAB PO SCH (08:10)
[2023-03-10] MEDS: metroNIDAZOLE 500 MG TAB PO SCH ×3 (08:10→20:33)
[2023-03-10] MEDS ORDERED: cefTRIAXone (ROCEPHIN) 1 GM VIAL ONE (12:36)
[2023-03-10] MEDS: cefTRIAXone\\ROCEPHIN 1 GM in Sodium Chloride 0.9% 100 ML IVPB SCH (12:39)
[2023-03-10] MEDS ORDERED: traMADol HCl 50 MG TAB PO PRN (16:38)
[2023-03-10] MEDS ORDERED: Sodium Chloride 0.9% 1,000 ML IV SCH (16:45)
[2023-03-10] MEDS: Atorvastatin Calcium 40 MG TAB PO SCH (20:33)
[2023-03-10] MEDS: tiZANidine HCl 4 MG TAB PO SCH (20:33)
[2023-03-11] MEDS: Acetaminophen 500 MG TAB PO PRN (09:39)
[2023-03-11] MEDS: Minoxidil 2.5 MG TAB PO SCH ×2 (09:40→21:42)
[2023-03-11] MEDS: metroNIDAZOLE 500 MG TAB PO SCH ×3 (09:40→21:42)
[2023-03-11] MEDS: cloNIDine 0.1 MG TAB PO SCH ×2 (09:40→21:42)
[2023-03-11] MEDS: Isosorbide Mononitrate 20 MG TAB PO SCH (09:40)
[2023-03-11] MEDS: Carvedilol 25 MG TAB PO SCH ×2 (09:40→17:17)
[2023-03-11] MEDS: Ferrous Sulfate 325 MG TAB PO SCH (09:41)
[2023-03-11] MEDS: Saccharomyces boulardii 250 MG CAP PO SCH (09:41)
[2023-03-11] MEDS: DULoxetine 30 MG CAP PO SCH (09:41)
[2023-03-11] MEDS: Furosemide 40 MG TAB PO SCH (09:41)
[2023-03-11] MEDS: Clopidogrel Bisulfate 75 MG TAB PO SCH (09:41)
[2023-03-11] MEDS: Gabapentin 100 MG CAP PO SCH (09:41)
[2023-03-11] MEDS: cefTRIAXone\\ROCEPHIN 1 GM in Sodium Chloride 0.9% 100 ML IVPB SCH (11:03)
[2023-03-11] MEDS: tiZANidine HCl 4 MG TAB PO SCH (21:42)
[2023-03-11] MEDS: Atorvastatin Calcium 40 MG TAB PO SCH (21:42)
[2023-03-12 06:16] LABS: #Basophils 0.1 thou/uL (0.0-0.2); #Eosinphils 0.1 thou/uL (0.0-0.7); #Lymphocytes 1.3 thou/uL (1.20-3.40); #Monocytes 0.4 thou/uL (0.11-0.59); #Neutrophils 2.9 thou/uL (1.40-6.50); %Basophils 1.6 % (0.0-1.0); %Eosinophils 1.8 % (0.0-10.0); %Lymphocytes 26.9 % (21.0-51.0); %Monocytes 9.2 % (0.0-10.0); %Neutrophils 60.5 % (42.0-75.0); Hemoglobin 7.8 g/dL (12.0-16.0); Mean Corpuscular HGB CONC 30.3 g/dL (32.0-36.0); Mean Corpuscular Volume 95.7 fl (78.0-98.0); Mean Platelet Volume 5.7 fL (7.4-10.4); Platelet Count 249 10x3/uL (130-400); RBC Distribution Width 15.4 % (11.5-14.5); White Blood Cell (WBC) Count 4.7 10x3/uL (4.8-10.8)
[2023-03-12 06:30] LABS: Anion Gap 11 mmol/L (10-20); BUN (Urea Nitrogen) 27 mg/dL (9.8-20.1); Calc. Creatinine Clearance 0 mL/min (70-130); Calcium 8.4 mg/dL (7.8-10.44); Carbon Dioxide 24 mmol/L (23-31); Chloride 103 mmol/L (98-107); Estimated GFR 24; Glucose 96 mg/dL (83-110); Potassium 3.8 mmol/L (3.5-5.1); Sodium 134 mmol/L (136-145)
[2023-03-12] MEDS: Isosorbide Mononitrate 20 MG TAB PO SCH (10:16)
[2023-03-12] MEDS: Saccharomyces boulardii 250 MG CAP PO SCH (10:16)
[2023-03-12] MEDS: Gabapentin 100 MG CAP PO SCH (10:16)
[2023-03-12] MEDS: cloNIDine 0.1 MG TAB PO SCH ×2 (10:17→20:52)
[2023-03-12] MEDS: Minoxidil 2.5 MG TAB PO SCH ×2 (10:17→20:52)
[2023-03-12] MEDS: Clopidogrel Bisulfate 75 MG TAB PO SCH (10:18)
[2023-03-12] MEDS: Ferrous Sulfate 325 MG TAB PO SCH (10:18)
[2023-03-12] MEDS: metroNIDAZOLE 500 MG TAB PO SCH ×3 (10:18→20:52)
[2023-03-12] MEDS: Carvedilol 25 MG TAB PO SCH ×2 (10:18→17:10)
[2023-03-12] MEDS: Furosemide 40 MG TAB PO SCH (10:18)
[2023-03-12] MEDS: DULoxetine 30 MG CAP PO SCH (10:18)
[2023-03-12] MEDS: cefTRIAXone\\ROCEPHIN 1 GM in Sodium Chloride 0.9% 100 ML IVPB SCH (11:50)
[2023-03-12] MEDS: cloNIDine 0.1 MG TAB PO PRN (14:53)
[2023-03-12] MEDS: Atorvastatin Calcium 40 MG TAB PO SCH (20:52)
[2023-03-12] MEDS: tiZANidine HCl 4 MG TAB PO SCH (20:52)
[2023-03-13] MEDS: Ferrous Sulfate 325 MG TAB PO SCH (09:48)
[2023-03-13] MEDS: Clopidogrel Bisulfate 75 MG TAB PO SCH (09:48)
[2023-03-13] MEDS: Isosorbide Mononitrate 20 MG TAB PO SCH (09:48)
[2023-03-13] MEDS: Minoxidil 2.5 MG TAB PO SCH ×2 (09:49→20:26)
[2023-03-13] MEDS: DULoxetine 30 MG CAP PO SCH (09:49)
[2023-03-13] MEDS: Saccharomyces boulardii 250 MG CAP PO SCH (09:49)
[2023-03-13] MEDS: Carvedilol 25 MG TAB PO SCH ×2 (09:49→17:32)
[2023-03-13] MEDS: cloNIDine 0.1 MG TAB PO SCH (09:49)
[2023-03-13] MEDS: Furosemide 40 MG TAB PO SCH (09:50)
[2023-03-13] MEDS: metroNIDAZOLE 500 MG TAB PO SCH ×3 (09:50→20:26)
[2023-03-13] MEDS: Gabapentin 100 MG CAP PO SCH (09:50)
[2023-03-13] MEDS: Loperamide HCl 2 MG CAP PO PRN ×4 (10:55→20:27)
[2023-03-13] MEDS: Ondansetron ODT 4 MG TAB PO PRN (12:02)
[2023-03-13] MEDS: cefTRIAXone\\ROCEPHIN 1 GM in Sodium Chloride 0.9% 100 ML IVPB SCH (12:21)
[2023-03-13] MEDS: tiZANidine HCl 4 MG TAB PO SCH (20:26)
[2023-03-13] MEDS: Atorvastatin Calcium 40 MG TAB PO SCH (20:26)
[2023-03-13] MEDS: cloNIDine 0.2 MG TAB PO SCH (20:27)
[2023-03-14 06:06] LABS: #Basophils 0.1 thou/uL (0.0-0.2); #Eosinphils 0.1 thou/uL (0.0-0.7); #Lymphocytes 1.2 thou/uL (1.20-3.40); #Monocytes 0.4 thou/uL (0.11-0.59); #Neutrophils 3.4 thou/uL (1.40-6.50); %Basophils 1.5 % (0.0-1.0); %Eosinophils 1.3 % (0.0-10.0); %Monocytes 8.1 % (0.0-10.0); %Neutrophils 66.1 % (42.0-75.0); Hemoglobin 7.9 g/dL (12.0-16.0); Mean Corpuscular HGB CONC 30.6 g/dL (32.0-36.0); Mean Corpuscular Hemoglobin 29.3 pg (27.0-31.0); Mean Corpuscular Volume 95.7 fl (78.0-98.0); Mean Platelet Volume 5.2 fL (7.4-10.4); Platelet Count 246 10x3/uL (130-400); RBC Distribution Width 15.4 % (11.5-14.5); Red Blood Cell (RBC) Count 2.71 mill/uL (4.20-5.40); White Blood Cell (WBC) Count 5.1 10x3/uL (4.8-10.8)
[2023-03-14 06:25] LABS: ALT (SGPT) Less than 7 U/L (8-55); AST (SGOT) 9 U/L (5-34); Albumin 2.4 g/dL (3.4-4.8); Alkaline Phosphatase 41 U/L (40-110); Anion Gap 14 mmol/L (10-20); BUN (Urea Nitrogen) 25 mg/dL (9.8-20.1); Bilirubin, Total 0.2 mg/dL (0.2-1.2); CRP (Inflammatory) 1.05 mg/dL (= or < 0.5); Calc. Creatinine Clearance 42 mL/min (70-130); Calcium 8.5 mg/dL (7.8-10.44); Carbon Dioxide 24 mmol/L (23-31); Chloride 104 mmol/L (98-107); Estimated GFR 25; Globulin 3.5 g/dL (2.4-3.5); Glucose 78 mg/dL (83-110); Potassium 3.8 mmol/L (3.5-5.1); Protein, Total 5.9 g/dL (5.8-8.1); Sodium 138 mmol/L (136-145)
[2023-03-14] MEDS: Ferrous Sulfate 325 MG TAB PO SCH (08:37)
[2023-03-14] MEDS: Furosemide 40 MG TAB PO SCH (08:37)
[2023-03-14] MEDS: metroNIDAZOLE 500 MG TAB PO SCH ×3 (08:38→20:31)
[2023-03-14] MEDS: Carvedilol 25 MG TAB PO SCH ×2 (08:38→16:39)
[2023-03-14] MEDS: Isosorbide Mononitrate 20 MG TAB PO SCH (08:38)
[2023-03-14] MEDS: Clopidogrel Bisulfate 75 MG TAB PO SCH (08:38)
[2023-03-14] MEDS: Gabapentin 100 MG CAP PO SCH (08:39)
[2023-03-14] MEDS: DULoxetine 30 MG CAP PO SCH (08:39)
[2023-03-14] MEDS: Minoxidil 2.5 MG TAB PO SCH ×2 (08:39→20:32)
[2023-03-14] MEDS: Saccharomyces boulardii 250 MG CAP PO SCH (08:39)
[2023-03-14] MEDS: cloNIDine 0.2 MG TAB PO SCH ×2 (08:39→20:32)
[2023-03-14] MEDS: cefTRIAXone\\ROCEPHIN 1 GM in Sodium Chloride 0.9% 100 ML IVPB SCH (12:38)
[2023-03-14] MEDS: Atorvastatin Calcium 40 MG TAB PO SCH (20:31)
[2023-03-14] MEDS: tiZANidine HCl 4 MG TAB PO SCH (20:32)
[2023-03-15] MEDS: Isosorbide Mononitrate 20 MG TAB PO SCH (08:53)
[2023-03-15] MEDS: Carvedilol 25 MG TAB PO SCH ×2 (08:53→15:37)
[2023-03-15] MEDS: Ferrous Sulfate 325 MG TAB PO SCH (08:53)
[2023-03-15] MEDS: cloNIDine 0.2 MG TAB PO SCH ×2 (08:54→21:14)
[2023-03-15] MEDS: Saccharomyces boulardii 250 MG CAP PO SCH (08:54)
[2023-03-15] MEDS: Minoxidil 2.5 MG TAB PO SCH ×2 (08:54→21:14)
[2023-03-15] MEDS: metroNIDAZOLE 500 MG TAB PO SCH ×3 (08:54→21:14)
[2023-03-15] MEDS: DULoxetine 30 MG CAP PO SCH (08:54)
[2023-03-15] MEDS: Clopidogrel Bisulfate 75 MG TAB PO SCH (08:54)
[2023-03-15] MEDS: Acetaminophen 500 MG TAB PO PRN (08:55)
[2023-03-15] MEDS: Gabapentin 100 MG CAP PO SCH (08:55)
[2023-03-15] MEDS: Furosemide 40 MG TAB PO SCH (08:55)
[2023-03-15] MEDS: cefTRIAXone\\ROCEPHIN 1 GM in Sodium Chloride 0.9% 100 ML IVPB SCH (12:13)
[2023-03-15] MEDS: tiZANidine HCl 4 MG TAB PO SCH (21:14)
[2023-03-15] MEDS: Atorvastatin Calcium 40 MG TAB PO SCH (21:14)
[2023-03-16] MEDS: Ondansetron ODT 4 MG TAB PO PRN (04:08)
[2023-03-16] MEDS: metroNIDAZOLE 500 MG TAB PO SCH ×3 (11:05→20:22)
[2023-03-16] MEDS: Gabapentin 100 MG CAP PO SCH (11:05)
[2023-03-16] MEDS: DULoxetine 30 MG CAP PO SCH (11:06)
[2023-03-16] MEDS: Clopidogrel Bisulfate 75 MG TAB PO SCH (11:07)
[2023-03-16] MEDS: Minoxidil 2.5 MG TAB PO SCH ×2 (11:07→20:22)
[2023-03-16] MEDS: Ferrous Sulfate 325 MG TAB PO SCH (11:07)
[2023-03-16] MEDS: cloNIDine 0.2 MG TAB PO SCH ×2 (11:08→20:21)
[2023-03-16] MEDS: Carvedilol 25 MG TAB PO SCH ×2 (11:08→16:00)
[2023-03-16] MEDS: Isosorbide Mononitrate 20 MG TAB PO SCH (11:08)
[2023-03-16] MEDS: Furosemide 40 MG TAB PO SCH (11:09)
[2023-03-16] MEDS: Saccharomyces boulardii 250 MG CAP PO SCH (11:09)
[2023-03-16] MEDS ORDERED: Furosemide 40 MG TAB PO SCH (11:30)
[2023-03-16] MEDS: cefTRIAXone\\ROCEPHIN 1 GM in Sodium Chloride 0.9% 100 ML IVPB SCH (12:09)
[2023-03-16] MEDS: Atorvastatin Calcium 40 MG TAB PO SCH (20:22)
[2023-03-16] MEDS: tiZANidine HCl 4 MG TAB PO SCH (20:25)
[2023-03-17] MEDS: Ferrous Sulfate 325 MG TAB PO SCH (09:16)
[2023-03-17] MEDS: Gabapentin 100 MG CAP PO SCH (09:17)
[2023-03-17] MEDS: cloNIDine 0.2 MG TAB PO SCH ×2 (09:17→20:51)
[2023-03-17] MEDS: Furosemide 40 MG TAB PO SCH (09:18)
[2023-03-17] MEDS: Isosorbide Mononitrate 20 MG TAB PO SCH (09:18)
[2023-03-17] MEDS: metroNIDAZOLE 500 MG TAB PO SCH ×3 (09:18→20:51)
[2023-03-17] MEDS: Carvedilol 25 MG TAB PO SCH ×2 (09:18→16:06)
[2023-03-17] MEDS: Saccharomyces boulardii 250 MG CAP PO SCH (09:18)
[2023-03-17] MEDS: Clopidogrel Bisulfate 75 MG TAB PO SCH (09:18)
[2023-03-17] MEDS: DULoxetine 30 MG CAP PO SCH (09:19)
[2023-03-17] MEDS: cefTRIAXone\\ROCEPHIN 1 GM in Sodium Chloride 0.9% 100 ML IVPB SCH (12:21)
[2023-03-17] MEDS: Minoxidil 2.5 MG TAB PO SCH ×2 (12:21→20:52)
[2023-03-17] MEDS: tiZANidine HCl 4 MG TAB PO SCH (20:51)
[2023-03-17] MEDS: Docusate 100 MG CAP PO SCH (20:52)
[2023-03-17] MEDS: Atorvastatin Calcium 40 MG TAB PO SCH (20:52)
[2023-03-18] MEDS: Ondansetron ODT 4 MG TAB PO PRN (08:09)
[2023-03-18] MEDS: Minoxidil 2.5 MG TAB PO SCH ×2 (10:05→20:38)
[2023-03-18] MEDS: Isosorbide Mononitrate 20 MG TAB PO SCH (10:05)
[2023-03-18] MEDS: Ferrous Sulfate 325 MG TAB PO SCH (10:05)
[2023-03-18] MEDS: Saccharomyces boulardii 250 MG CAP PO SCH (10:06)
[2023-03-18] MEDS: metroNIDAZOLE 500 MG TAB PO SCH ×3 (10:07→20:38)
[2023-03-18] MEDS: Furosemide 40 MG TAB PO SCH (10:07)
[2023-03-18] MEDS: Docusate 100 MG CAP PO SCH ×2 (10:07→20:38)
[2023-03-18] MEDS: Gabapentin 100 MG CAP PO SCH (10:07)
[2023-03-18] MEDS: Carvedilol 25 MG TAB PO SCH ×2 (10:07→17:19)
[2023-03-18] MEDS: DULoxetine 30 MG CAP PO SCH (10:07)
[2023-03-18] MEDS: Clopidogrel Bisulfate 75 MG TAB PO SCH (10:08)
[2023-03-18] MEDS: cloNIDine 0.2 MG TAB PO SCH ×2 (10:08→20:38)
[2023-03-18] MEDS: cefTRIAXone\\ROCEPHIN 1 GM in Sodium Chloride 0.9% 100 ML IVPB SCH (11:51)
[2023-03-18] MEDS: cloNIDine 0.1 MG TAB PO PRN (15:01)
[2023-03-18] MEDS: Acetaminophen 325 MG TAB PO PRN (17:22)
[2023-03-18] MEDS: Atorvastatin Calcium 40 MG TAB PO SCH (20:38)
[2023-03-18] MEDS: tiZANidine HCl 4 MG TAB PO SCH (20:38)
[2023-03-19] MEDS: Ondansetron ODT 4 MG TAB PO PRN (06:37)
[2023-03-19] MEDS: DULoxetine 30 MG CAP PO SCH (08:16)
[2023-03-19] MEDS: Isosorbide Mononitrate 20 MG TAB PO SCH (08:16)
[2023-03-19] MEDS: cloNIDine 0.2 MG TAB PO SCH ×2 (08:16→20:33)
[2023-03-19] MEDS: Carvedilol 25 MG TAB PO SCH ×2 (08:17→17:28)
[2023-03-19] MEDS: Ferrous Sulfate 325 MG TAB PO SCH (08:17)
[2023-03-19] MEDS: Gabapentin 100 MG CAP PO SCH (08:17)
[2023-03-19] MEDS: Clopidogrel Bisulfate 75 MG TAB PO SCH (08:17)
[2023-03-19] MEDS: Minoxidil 2.5 MG TAB PO SCH ×2 (08:17→20:34)
[2023-03-19] MEDS: Furosemide 40 MG TAB PO SCH (08:17)
[2023-03-19] MEDS: Saccharomyces boulardii 250 MG CAP PO SCH (08:17)
[2023-03-19] MEDS: metroNIDAZOLE 500 MG TAB PO SCH ×3 (08:17→20:34)
[2023-03-19] MEDS: Docusate 100 MG CAP PO SCH ×2 (08:18→20:34)
[2023-03-19] MEDS ORDERED: Epoetin 40,000 UNITS/ML VIAL SC SCH (09:00)
[2023-03-19] MEDS ORDERED: Promethazine 25 MG TAB PO SCH (10:15)
[2023-03-19] MEDS: cefTRIAXone\\ROCEPHIN 1 GM in Sodium Chloride 0.9% 100 ML IVPB SCH (11:01)
[2023-03-19] MEDS: tiZANidine HCl 4 MG TAB PO SCH (20:34)
[2023-03-19] MEDS: Atorvastatin Calcium 40 MG TAB PO SCH (20:34)
[2023-03-19] MEDS: Famotidine 20 MG TAB PO SCH (20:34)
[2023-03-20 06:35] VITALS: BMI 38.4
[2023-03-20] MEDS: Furosemide 40 MG TAB PO SCH (07:35)
[2023-03-20] MEDS ORDERED: Ferrous Gluconate 324 MG TAB PO SCH (09:00)
[2023-03-20] MEDS: Isosorbide Mononitrate 20 MG TAB PO SCH (09:04)
[2023-03-20] MEDS: Docusate 100 MG CAP PO SCH (09:04)
[2023-03-20] MEDS: Minoxidil 2.5 MG TAB PO SCH (09:04)
[2023-03-20] MEDS: DULoxetine 30 MG CAP PO SCH (09:05)
[2023-03-20] MEDS: Carvedilol 25 MG TAB PO SCH ×2 (09:05→17:28)
[2023-03-20] MEDS: Clopidogrel Bisulfate 75 MG TAB PO SCH (09:05)
[2023-03-20] MEDS: Saccharomyces boulardii 250 MG CAP PO SCH (09:05)
[2023-03-20] MEDS: cloNIDine 0.2 MG TAB PO SCH (09:06)
[2023-03-20] MEDS: Gabapentin 100 MG CAP PO SCH (09:07)
[2023-03-20] MEDS: Famotidine 20 MG TAB PO SCH (09:08)
[2023-03-20] MEDS: metroNIDAZOLE 500 MG TAB PO SCH ×2 (09:18→15:12)
[2023-03-20 10:13] LABS: #Basophils 0.1 thou/uL (0.0-0.2); #Eosinphils 0.1 thou/uL (0.0-0.7); #Lymphocytes 1.5 thou/uL (1.20-3.40); #Monocytes 0.5 thou/uL (0.11-0.59); %Basophils 1.3 % (0.0-1.0); %Eosinophils 1.4 % (0.0-10.0); %Lymphocytes 23.7 % (21.0-51.0); %Monocytes 8.3 % (0.0-10.0); %Neutrophils 65.2 % (42.0-75.0); Hemoglobin 8.8 g/dL (12.0-16.0); Mean Corpuscular HGB CONC 30.4 g/dL (32.0-36.0); Mean Corpuscular Hemoglobin 28.8 pg (27.0-31.0); Mean Corpuscular Volume 94.7 fl (78.0-98.0); Mean Platelet Volume 6.7 fL (7.4-10.4); Platelet Count 203 10x3/uL (130-400); RBC Distribution Width 15.8 % (11.5-14.5); Red Blood Cell (RBC) Count 3.06 mill/uL (4.20-5.40); White Blood Cell (WBC) Count 6.1 10x3/uL (4.8-10.8)
[2023-03-20 10:27] LABS: ALT (SGPT) Less than 7 U/L (8-55); AST (SGOT) 7 U/L (5-34); Albumin 2.6 g/dL (3.4-4.8); Alkaline Phosphatase 44 U/L (40-110); Anion Gap 10 mmol/L (10-20); BUN (Urea Nitrogen) 26 mg/dL (9.8-20.1); Bilirubin, Total 0.3 mg/dL (0.2-1.2); CRP (Inflammatory) 0.83 mg/dL (= or < 0.5); Calc. Creatinine Clearance 42 mL/min (70-130); Calcium 8.4 mg/dL (7.8-10.44); Carbon Dioxide 27 mmol/L (23-31); Chloride 104 mmol/L (98-107); Estimated GFR 25; Globulin 3.9 g/dL (2.4-3.5); Glucose 131 mg/dL (83-110); Magnesium 1.3 mg/dL (1.6-2.6); Phosphorus 3.3 mg/dL (2.3-4.7); Protein, Total 6.5 g/dL (5.8-8.1); Sodium 137 mmol/L (136-145)
[2023-03-20] MEDS: cefTRIAXone\\ROCEPHIN 1 GM in Sodium Chloride 0.9% 100 ML IVPB SCH (12:13)
[2023-03-20] MEDS: Ondansetron ODT 4 MG TAB PO PRN (17:28)
[2023-03-20 17:54] VITALS: BP 186/86; TEMP 97.9
[2023-03-21] MEDS ORDERED: Famotidine 20 MG TAB PO SCH (09:00)
[2023-03-21 11:45] LABS: Iron 39 ug/dL (50-170)
== END 2023-03-20 17:45 | DRG 947 ==
LOC: NAV ACUTE 01-26 17:11
PROVIDERS: ADMIT Family Medicine; ATTEND Family Medicine
DX: R53.1 Weakness (principal); J96.01 Acute respiratory failure with hypoxia; L89.154 Pressure ulcer of sacral region, stage 4; I13.2 Hypertensive heart and chronic kidney disease with heart failure and with stage 5 chronic kidney disease, or end stage renal disease; I50.32 Chronic diastolic (congestive) heart failure; N18.5 Chronic kidney disease, stage 5; M46.28 Osteomyelitis of vertebra, sacral and sacrococcygeal region; E66.9 Obesity, unspecified; Z96.643 Presence of artificial hip joint, bilateral; R53.81 Other malaise; I95.9 Hypotension, unspecified; D63.1 Anemia in chronic kidney disease; G47.30 Sleep apnea, unspecified; L89.626 Pressure-induced deep tissue damage of left heel; R33.9 Retention of urine, unspecified; G47.33 Obstructive sleep apnea (adult) (pediatric); M10.9 Gout, unspecified; L89.616 Pressure-induced deep tissue damage of right heel; E78.5 Hyperlipidemia, unspecified; Z88.8 Allergy status to other drugs, medicaments and biological substances; Z88.5 Allergy status to narcotic agent; Z88.0 Allergy status to penicillin; Z79.82 Long term (current) use of aspirin; Z79.02 Long term (current) use of antithrombotics/antiplatelets; Z79.899 Other long term (current) drug therapy; Z87.440 Personal history of urinary (tract) infections; Z86.73 Personal history of transient ischemic attack (TIA), and cerebral infarction without residual deficits; Z85.41 Personal history of malignant neoplasm of cervix uteri; Z92.21 Personal history of antineoplastic chemotherapy; Z92.3 Personal history of irradiation; Z95.0 Presence of cardiac pacemaker; Z90.89 Acquired absence of other organs; Z87.891 Personal history of nicotine dependence; Z68.38 Body mass index [BMI] 38.0-38.9, adult; G62.9 Polyneuropathy, unspecified
CPT/HCPCS: 36415; 71045; 72100; 72220; 80048; 80053; 82728; 83540; 83735; 83880; 84100; 85025; 86140; 87070; 87077; 87186; 87205; 97602; J0696; J0885; J1650; J1940; J3490; J7050; Q0162; Q0169

== ENCOUNTER 2023-04-17 11:58 | Emergency (ER) | payer MEDICARE ==
[2023-04-17 12:28] LABS: #Eosinphils 0.1 thou/uL (0.0-0.7); #Lymphocytes 1.4 thou/uL (1.20-3.40); #Monocytes 0.5 thou/uL (0.11-0.59); #Neutrophils 5.7 thou/uL (1.40-6.50); %Basophils 0.6 % (0.0-1.0); %Eosinophils 0.8 % (0.0-10.0); %Lymphocytes 17.8 % (21.0-51.0); %Monocytes 6.9 % (0.0-10.0); %Neutrophils 73.9 % (42.0-75.0); Hematocrit 25.7 % (36.0-47.0); Hemoglobin 7.6 g/dL (12.0-16.0); Mean Corpuscular HGB CONC 29.7 g/dL (32.0-36.0); Mean Corpuscular Hemoglobin 27.9 pg (27.0-31.0); Mean Corpuscular Volume 93.9 fl (78.0-98.0); Mean Platelet Volume 5.1 fL (7.4-10.4); Platelet Count 225 10x3/uL (130-400); RBC Distribution Width 15.2 % (11.5-14.5); Red Blood Cell (RBC) Count 2.73 mill/uL (4.20-5.40); White Blood Cell (WBC) Count 7.7 10x3/uL (4.8-10.8)
[2023-04-17 12:42] LABS: INR-International Normal Ratio 1.1; PTT 23.2 sec (22.9-36.1); Prothrombin Time 14.2 sec (12.0-14.7)
[2023-04-17 12:50] LABS: ALT (SGPT) 7 U/L (8-55); AST (SGOT) 7 U/L (5-34); Albumin 2.6 g/dL (3.4-4.8); Alkaline Phosphatase 57 U/L (40-110); Anion Gap 18 mmol/L (10-20); BUN (Urea Nitrogen) 79 mg/dL (9.8-20.1); Bilirubin, Total 0.4 mg/dL (0.2-1.2); Calc. Creatinine Clearance 0 mL/min (70-130); Calcium 9.1 mg/dL (7.8-10.44); Carbon Dioxide 28 mmol/L (23-31); Chloride 100 mmol/L (98-107); Estimated GFR 17; Globulin 4.4 g/dL (2.4-3.5); Glucose 122 mg/dL (83-110); Potassium 4.1 mmol/L (3.5-5.1); Sodium 142 mmol/L (136-145)
[2023-04-17 12:56] LABS: Troponin I 0.088 ng/mL (< 0.028)
[2023-04-17 13:30] LABS: Amphetamine Not Detected (NotDetected); Barbiturates Screen Not Detected (NotDetected); Benzodiazepine Screen Not Detected (NotDetected); Cocaine Metabolite Screen Not Detected (NotDetected); Methadone Not Detected (NotDetected); Methamphetamine Not Detected (NotDetected); Opiate Screen Not Detected (NotDetected); Oxycodone Screen Not Detected (NotDetected); Phencyclidine (PCP) Not Detected (NotDetected); THC/Cannabinoid Screen Not Detected (NotDetected); Tricyclic Screen Not Detected (NotDetected)
[2023-04-17] MEDS ORDERED: Furosemide 40 MG/4 ML VIAL ONE (14:31)
[2023-04-17 16:17] LABS: Troponin I 0.087 ng/mL (< 0.028)
== END 2023-04-17 17:25 | disposition short-term general hospital (02) ==
LOC: NAV ERS 11:58
DX: K92.2 Gastrointestinal hemorrhage, unspecified (principal); D64.9 Anemia, unspecified; I11.0 Hypertensive heart disease with heart failure; I50.9 Heart failure, unspecified; L89.329 Pressure ulcer of left buttock, unspecified stage; N28.9 Disorder of kidney and ureter, unspecified; E66.9 Obesity, unspecified; E78.5 Hyperlipidemia, unspecified; Z87.891 Personal history of nicotine dependence; Z79.899 Other long term (current) drug therapy; Z79.82 Long term (current) use of aspirin
CPT/HCPCS: 36415; 71045; 80053; 80306; 83880; 84484; 85025; 85610; 85730; 93005; 94760; 96374; J1940